=== PATIENT | male | born 2000 ===

== ENCOUNTER 2025-07-08 14:07 | Inpatient (IN) | payer OTHER, SELFPAY ==
--- OUTSIDE RECORDS SUMMARY | 2024-03-31 05:00 | XMS_ITS ---
Author Organization [facility] [place] Address [address] [place] [address] Care Team Providers Care Coil Tier Name Role Phone Sonizara Claribel Unavailable [phone] Migration, Provider Unavailable Unavailable REASON FOR VISIT TelEnc Encounters Encounter Location Date Provider [facility] [place] [address] [facility] [address] [place] [address] 03/31/2024 Provider Migration Plan Of Treatment No Information Progress Notes * ISRAEL YANEZDOB:1999 (25 yo M)Acc No.[id number]:03/31/2024 Patient: ISRAEL BRITTON :2000 A ge:23 Y S ex:Male Address:[address] [place] [address], [id number] Subjective: * Chief Complaints: * T elEnc * Medical History: * Surgical History: * Hospitalization/Major Diagno stic Procedure: * Medications: Objective: * Vitals: Past Vitals:* 03/24/2024 BP: 132/90 mm Hg, HR: 97 /mi n, Wt: 240.00 lbs * Physical Examination: Assessment: Plan: * Treatment: * Procedure Codes: * * Date:
--- OUTSIDE RECORDS SUMMARY | 2024-04-20 05:00 | XMS_ITS ---
Author Organization [place] [facility] [place] Address [address] [place] [address] Care Team Providers Care Coverage Specialist Rn Name Role Phone Sonizara Claribel Unavailable [phone] Migration, Provider Unavailable Unavailable REASON FOR VISIT TelEnc Encounters Encounter Location Date Provider [facility] [place] [address] [facility] [address] [place] [address] 04/20/2024 Provider Migration Plan Of Treatment No Information Progress Notes * ISRAEL YANEZDOB:1999 (25 yo M)Acc No.[id number]:04/20/2024 Patient: ISRAEL BRITTON :2000 A ge:24 Y S ex:Male Address:[address] [place] [address], [phone] Subjective: * Chief Complaints: * T elEnc * Medical History: * Surgical History: * Hospitalization/Major Diagno stic Procedure: * Medications: Objective: * Vitals: Past Vitals:* 03/24/2024 BP: 132/90 mm Hg, HR: 97 /mi n, Wt: 240.00 lbs * Physical Examination: Assessment: Plan: * Treatment: * Procedure Codes: * * Date:
--- OUTSIDE RECORDS SUMMARY | 2024-05-06 07:15 | XMS_ITS ---
Author Organization [facility] [place] Address [address] [facility] [address] [place] [address] Care Team Providers Care Chief Psychology Name Role Phone Eleazar Claribel Unavailable [phone] Hugo Avila Unavailable [phone] Vital Signs Weight 249.00 lbs 05/06/2024 Oximetry 98 % 05/06/2024 Heart Rate 100 /min 05/06/2024 Height 73.00 in 05/06/2024 Blood pressure systolic 136 mm Hg 05/06/20 Blood pressure diastolic 90 mm Hg 024 BMI 32.9 kg/m2 05/06/2024 Encounters Encounter Location Date Provider [facility] [place] [address] [facility] [address] [place] [address] 05/06/2024 Hugo Avila Unspecified abnormal involuntary movements R25.9 Assessments Encounter Date Diagnosis (ICD Code) Assessment Notes Treatment Notes Treatment Clinical Notes Section Notes 05/06/2024 Unspecified abnormal involuntary movements (ICD-10 - R25.9) Plan Of Treatment No Information Progress Notes * ISRAEL YANEZDOB:1999 (25 yo M)Acc No.[id number]:05/06/2024 Patient: ISRAEL BRITTON Provider: Shabana Avila MD :2000 A ge:24 Y S ex:Male Date:05/06/2024 [id number] Subjective: * Chief Complaints: * * Medical History: Objective: * Vitals: B P: 136/90 mm Hg, HR: 100 /min, Wt: 249.00 lbs, Ht: 73.00 in, BMI: 32.9 Index, Oxygen sat %: 98. Past Vitals:* 03/24/2024 BP: 132/90 mm Hg, HR: 97 /mi n, Wt: 240.00 lbs Assessment: * Assessment: 1. U nspecified abnormal involuntary movements - R25.9 Plan: * Treatment: * Billing Information: * Visit Code: * Procedure Codes: * Electronic signature of Stacie Avila M.D, on 07/08/2025 at 06:37 PM EDT Sign off status: Pending * Provider: Shabana Avila MD Date: 0 05/06/2024 Generated for Jarett levin/Patrick/Cuate on: 07/08/2025 06:37 PM EDT
--- OUTSIDE RECORDS SUMMARY | 2025-02-06 05:00 | XMS_ITS ---
[facility] [place] Address [address] [place] [address] Care Team Providers Care Artificial Breeding Distributor Name Role Phone Sonizara Claribel Unavailable [phone] Migration, Provider Unavailable Unavailable REASON FOR VISIT [facility] Encounters Encounter Location Date Provider Diagnosis [facility] [place] [address] [place] [address] 02/06/2025 Provider Migration Plan Of Treatment No Information Progress Notes * ISRAEL YANEZDOB:1999 (25 yo M)Acc No.[id number]:02/06/2025 Patient: ISRAEL BRITTON :2000 A ge:24 Y S ex:Male Address:[address] [place] [address], [phone] Subjective: * Chief Complaints: * E MR-Wilfred * Medical History: * Surgical History: * Hospitalization/Major Diagno stic Procedure: * Medications: Objective: * Vitals: Past Vitals:* 05/06/2024 BP: 136/90 mm Hg, HR: 100 /m in, Wt: 249.00 lbs * 03/24/2024 BP: 132/90 mm Hg, HR: 97 /mi n, Wt: 240.00 lbs * Physical Examination: Assessment: Plan: * Treatment: * Procedure Codes: * * Date:
--- OUTSIDE RECORDS SUMMARY | 2025-02-07 05:00 | XMS_ITS ---
Author Organization [facility] [place] Address [address] [facility] [address] [place] [address] Care Team Providers Care Sprinkling System Installer Name Role Phone Sonizara Claribel Unavailable [phone] Migration, Provider Unavailable Unavailable REASON FOR VISIT [facility] Medications Medication SIG (Take, Route, Frequency, Duration) Notes Start Date End Date Status clomiPRAMINE HCl 50 MG Oral 05/06/2024 Active Anafranil *Pick strength-form from [email or web address] for eRX* 05/06/2024 Active Divalproex Sodium ER 250 MG Oral 05/06/2024 Active busPIRone HCl 5 MG Oral 05/06/2024 Active Venlafaxine HCl ER 75 MG Oral 05/06/2024 Active LORazepam 0.5 MG Oral 05/06/2024 Ac tive clomiPRAMINE HCl 25 MG Oral 05/06/2024 Active ARIPiprazole 10 MG Oral 05/06/2024 Active Venlafaxine HCl ER 37.5 MG Oral 05/06/2024 Active Venlafaxine HCl ER 150 MG Oral 05/06/2024 Active clomiPRAMINE HCl 75 MG Oral 05/06/2024 Active Divalproex Sodium 250 MG Oral 05/06/2024 Active LORazepam 1 MG Oral 05/06/2024 Acti ve Rexulti 0.5 MG Oral 05/06/2024 Acti ve Divalproex Sodium 500 MG Oral 05/06/2024 Active Divalproex Sodium ER 500 MG Oral 05/06/2024 Active Encounters Encounter Location Date Provider Diagnosis [facility] [place] [address] [facility] [address] [place] [address] 02/07/2025 Provider Migration Plan Of Treatment No Information Progress Notes * ISRAEL YANEZDOB:1999 (25 yo M)Acc No.[id number]:02/07/2025 Patient: ISRAEL BRITTON :2000 A ge:24 Y S ex:Male Address:[address] [place] [address], [phone] Subjective: * Chief Complaints: * E MR-Wilfred * Medical History: * Surgical History: * Hospitalization/Major Diagno stic Procedure: * Social History: M igrated Social History: M igrated Social History: Alcohol Intake: None 03/24/2024,Tobacco Years: Never smoker 03/24/2024. * Medications: T akingARIPiprazole 10 MG Tablet Oral LORazepam 1 MG Tablet Oral LORazepam 0.5 MG Tablet Oral Rexulti 0.5 MG Tablet Oral Divalproex Sodium ER 250 MG Tablet Extended Release 24 Hour Oral Divalproex Sodium ER 500 MG Tablet Extended Release 24 Hour Oral clomiPRAMINE HCl 25 MG Capsule Oral clomiPRAMINE HCl 50 MG Capsule Oral clomiPRAMINE HCl 75 MG Capsule Oral Divalproex Sodium 250 MG Tablet Delayed Release Oral Divalproex Sodium 500 MG Tablet Delayed Release Oral Anafranil , Notes to Pharmacist: *Pick strength-form from [employer] for eRX*Venlafaxine HCl ER 150 MG Capsule Extended Release 24 Hour Oral Venlafaxine HCl ER 37.5 MG Capsule Extended Release 24 Hour Oral Venlafaxine HCl ER 75 MG Capsule Extended Release 24 Hour Oral busPIRone HCl 5 MG Tablet Oral Taking ARIPiprazole 10 MG Tablet Oral Taking LORazepam 1 MG Tablet Oral Taking LORazepam 0.5 MG Tablet Oral Taking Rexulti 0.5 MG Tablet Oral Taking Divalproex Sodium ER 250 MG Tablet Extended Release 24 Hour Oral Taking Divalproex Sodium ER 500 MG Tablet Extended Release 24 Hour Oral Taking clomiPRAMINE HCl 25 MG Capsule Oral Taking clomiPRAMINE HCl 50 MG Capsule Oral Taking clomiPRAMINE HCl 75 MG Capsule Oral Taking Divalproex Sodium 250 MG Tablet Delayed Release Oral Taking Divalproex Sodium 500 MG Tablet Delayed Release Oral Taking Anafranil , Notes to Pharmacist: *Pick strength-form from [employer] for eRX*Taking Venlafaxine HCl ER 150 MG Capsule Extended Release 24 Hour Oral Taking Venlafaxine HCl ER 37.5 MG Capsule Extended Release 24 Hour Oral Taking Venlafaxine HCl ER 75 MG Capsule Extended Release 24 Hour Oral Taking busPIRone HCl 5 MG Tablet Oral Objective: * Vitals: Past Vitals:* 05/06/2024 BP: 136/90 mm Hg, HR: 100 /m in, Wt: 249.00 lbs * 03/24/2024 BP: 132/90 mm Hg, HR: 97 /mi n, Wt: 240.00 lbs * Physical Examination: Assessment: Plan: * Treatment: * Procedure Codes: * * Date:
--- OUTSIDE RECORDS SUMMARY | 2025-06-29 03:31 | XMS_ITS | Continuity of Care Document ---
Author Organization [facility] Address 6 [facility] [address] [place] [address] Phone Care Team Providers Care Clinical Appeals Rn Name Role Phone Marlyn Mata APN Unavailable Unavailable Allergies, Adverse Reactions, Alerts Substance Reaction Status Criticality No Known Allergies Active No Inform ation Medications Medication Instructions Dosage Effective Dates (start - stop) Status Comments CLOMIPRAMINE 50 MG CAPSULE TAKE 2 CAPSULES BY MOUTH EVERY DAY IN THE MORNING - Active LURASIDONE HCL 60 MG TABLET TAKE 1 TABLET BY MOUTH EVERY DAY WITH FOOD (AT LEAST 350 CALORIES) - Active DIVALPROEX SOD ER 500 MG TAB TAKE 1 TABLET BY ORAL ROUTE EVERY DAY AT BEDTIME (DEPAKOTE SOD ER) - Active CYCLOBENZAPRINE 10 MG TABLET TAKE 1 TABLET BY MOUTH TWICE A DAY NEEDED FOR PAIN - Active dexmethylphenidate ER 10 mg capsule,extended release [id number] take 1 capsule by oral route every day in the morning 10 MG - Active nitrofurantoin monohydrate/macrocrysta ls 100 mg capsule take 1 capsule by oral route every day for UTI prophylaxis - Active alfuzosin ER 10 mg tablet,extended release 24 hr take 1 tablet by oral route every day at night - Active hydroxyzine HCl 50 mg tablet take 1 tablet by oral route 3 times every day as needed 50 MG - Active Depakote ER 250 mg tablet,extended release take 1 tablet by oral route every day at bedtime. - Active In addition to the 500mg for 750mg total Anafranil 75 mg capsule TAKE 1 CAPSULE B Y MOUTH EVERYDAY AT BEDTIME - Active paroxetine 30 mg tablet take 1 tablet by oral route every day 30 MG - Active gabapentin 300 mg capsule take 1 capsule by oral route 3 times every day as needed 300 MG - Active Other: MISCELL Methylcobalamin 1000 mcg, L-methylfolate 25 mg, Vitamin D, Vitamin C - Active Latuda 60 mg tablet take 1 tablet by oral route every day with food (at least 350 calories) 60 MG - No Longer Active Anafranil 50 mg capsule TAKE 2 CAPSULE B Y MOUTH EVERY DAY IN THE MORNING - No Longer Active Procedures Procedure Date OFFICE/OUTPATIENT VISIT, EST-Detailed Au Complex e/m visit add on Admin Of Pt Focused Health Risk Assessme nt Instr OFFICE/OUTPATIENT VISIT, EST-Detailed Au Complex e/m visit add on US Urine Capacity Measure Urinalysis, Auto, W/O Scope OFFICE/OUTPATIENT VISIT, EST-Expanded Au ACP DISCUSS-NO DSCNMKR DOCD Admin Of Pt Focused Health Risk Assessme nt Instr OFFICE/OUTPATIENT VISIT, EST-Detailed Ju Complex e/m visit add on Office/Outpatient Visit, Est OFFICE/OUTPATIENT VISIT, EST-Detailed Ju Complex e/m visit add on 5+ CC sterile syringe&needle Methylprednisolone Acetate 1mg 25 LIDOCAINE Marcaine Drain/Inject, Joint/Bursa Office/Outpatient Visit, New OFFICE/OUTPATIENT VISIT, EST-Detailed Ju Complex e/m visit add on Duplicate Encounter X-Ray shoulder, complete Arm Sling Urgent care [facility] Cystoscopy NO Office Visit Code / NO EM Code US Urine Capacity Measure Nurse Visit No Charge Admin Of Pt Focused Health Risk Assessme nt Instr OFFICE/OUTPATIENT VISIT, EST-Detailed Ma Complex e/m visit add on US Urine Capacity Measure Urinalysis, Auto, W/O Scope OFFICE/OUTPATIENT VISIT, EST-Expanded De ACP DISCUSS-NO DSCNMKR DOCD Urinalysis, Auto, W/O Scope OFFICE/OUTPATIENT VISIT, EST-Detailed Cole ACP DISCUSS-NO DSCNMKR DOCD Admin Of Pt Focused Health Risk Assessme nt Instr VENIPUNCTURE PREV VISIT, EST, AGE 18-39 OFFICE/OUTPATIENT VISIT, EST-Expanded De REMOVE IMPACTED EAR WAX UNI OFFICE/OUTPATIENT VISIT, [facility] Urgent care center [facility] OFFICE/OUTPATIENT VISIT, EST-Detailed Se p OFFICE/OUTPATIENT VISIT, EST-Detailed Se US Urine Capacity Measure Urinalysis, Auto, W/O Scope OFFICE/OUTPATIENT VISIT, EST-Expanded Au IMMUNIZATION ADMIN TDAP VACCINE >7 IM Admin Of Pt Focused Health Risk Assessme nt Instr OFFICE/OUTPATIENT VISIT, EST-Detailed Au Admin Of Pt Focused Health Risk Assessme nt Instr OFFICE/OUTPATIENT VISIT, EST-Detailed Ju OFFICE/OUTPATIENT VISIT, EST-Detailed Ju Admin Of Pt Focused Health Risk Assessme nt Instr OFFICE/OUTPATIENT VISIT, EST-Detailed Ju OFFICE/OUTPATIENT VISIT, EST-Complex February Complex e/m visit add on Discharge Medlist Reconciled w/OutPt Med list Admin Of Pt Focused Health Risk Assessme nt Instr OFFICE/OUTPATIENT VISIT, EST-Detailed Ma Discharge Medlist Reconciled w/OutPt Med list Admin Of Pt Focused Health Risk Assessme nt Instr OFFICE/OUTPATIENT VISIT, EST-Detailed Ma OFFICE/OUTPATIENT VISIT, EST-Complex February OFFICE/OUTPATIENT VISIT, EST-Expanded Ap OFFICE/OUTPATIENT VISIT, NEW Discharge Medlist Reconciled w/OutPt Med list Admin Of Pt Focused Health Risk Assessme nt Instr OFFICE/OUTPATIENT VISIT, EST-Detailed Ma r OFFICE/OUTPATIENT VISIT, EST-Detailed Ma Discharge Medlist Reconciled w/OutPt Med list Complex e/m visit add on OFFICE/OUTPATIENT VISIT, NEW Discharge Medlist Reconciled w/OutPt Med list VENIPUNCTURE Admin Of Pt Focused Health Risk Assessme nt Instr PREV VISIT, EST, AGE 18-39 OFFICE/OUTPATIENT VISIT, EST-Expanded Fe IMMUNIZATION ADMIN HPV Vacc 3 Dose Im - Gardisil VENIPUNCTURE PREV VISIT, EST, AGE 18-39 NO Office Visit Code / NO EM Code Destruct B9 Lesion Or Warts, 1-14 PREV VISIT, EST, AGE 18-39 NO Office Visit Code / NO EM Code Destruct B9 Lesion Or Warts, 1-14 OFFICE/OUTPATIENT VISIT, EST-Expanded Ju NO Office Visit Code / NO EM Code Destruct Lesion Or Warts, 15 Or More Mar NO Office Visit Code / NO EM Code Destruct Lesion Or Warts, 15 Or More February OFFICE/OUTPATIENT VISIT, NEW Destruct B9 Lesion Or Warts, 1- IMMUNIZATION ADMIN Bexsero IMMUNIZATION ADMIN, EACH ADD Flu Vacc Flulaval 0.5mL Prefilled Preser v Free Syringe 6 Months + Nurse Visit No Charge OFFICE/OUTPATIENT VISIT, NEW Urgent care center [facility] OFFICE/OUTPATIENT VISIT, EST-Expanded Se Urinalysis, Auto, W/O Scope X-Ray Abdomen, One View US Abdomen Retroperitoneal, Complete Jun Urinalysis, Auto, W/O Scope OFFICE/OUTPATIENT VISIT, EST-Detailed Se Body Mass Index Documented IMMUNIZATION ADMIN Bexsero PREV VISIT, EST, AGE 18-39 REFRACTION Eye Exam & Treatment Body Mass Index Documented PREV VISIT, EST, AGE 12-17 Admin Of Pt Focused Health Risk Assessme nt Instr Urinalysis, Auto, W/O Scope OFFICE/OUTPATIENT VISIT, EST-Expanded No OFFICE/OUTPATIENT VISIT, EST-Expanded Se p Urinalysis, Auto, W/O Scope OFFICE/OUTPATIENT VISIT, EST-Expanded Au g Urinalysis, Auto, W/O Scope ECHO W/DOPLER AND COLOR FLOW Cardiovascular Stress Test Electrocardiogram, Complete Office/Outpatient Visit, New Pt Comprehe nsive OFFICE CONSULTATION ELECTROCARDIOGRAM, COMPLETE OFFICE CONSULTATION Urinalysis, Auto, W/O Scope US Urine Capacity Measure VISUAL ACUITY SCREEN Body Mass Index Documented IMMUNIZATION ADMIN MENINGOCOCCAL VACCINE, IM PREV VISIT, EST, AGE 12-17 OFFICE/OUTPATIENT VISIT, EST-Expanded Ma URINALYSIS NONAUTO W/O SCOPE OFFICE/OUTPATIENT VISIT, EST-Expanded Ap SPECIMEN HANDLING OFFICE/OUTPATIENT VISIT, EST-Detailed Ma Body Mass Index Documented PREV VISIT, EST, AGE 12-17 X-Ray Finger/S, 2 Views Finger splint, static Office/Outpatient Visit, Est OFFICE/OUTPATIENT VISIT, EST-Expanded Ma Audiometry, Screening Pure Tone Hearing Test PREV VISIT, EST, AGE 12-17 OFFICE/OUTPATIENT VISIT, NEW Urgent care center [facility] REFRACTION STREP A ASSAY W/OPTIC OFFICE/OUTPATIENT VISIT, EST-Expanded Ju VISUAL ACUITY SCREEN IMMUNE ADMIN ORAL/NASAL Flu Vaccine, Nasal Quadrivalent 015 PREV VISIT, EST, AGE 12-17 OFFICE/OUTPATIENT VISIT, EST-Expanded Au OFFICE/OUTPATIENT VISIT, EST-Expanded Au Eye Exam & Treatment REFRACTION IMMUNE ADMIN ORAL/NASAL Flu Vaccine, Nasal Quadrivalent 014 Nurse Visit No Charge PURE TONE HEARING TEST - Audiometry PREV VISIT, EST, AGE 12-17 Rx Check Eye Exam Established Pat REFRACTION OFFICE/OUTPATIENT VISIT, NEW Balance Forward VISUAL ACUITY SCREEN MENINGOCOCCAL VACCINE, IM IMMUNIZATION ADMIN FLU VACCINE, NASAL Immune Admin Oral/Nasal Addl TDAP VACCINE >7 IM IMMUNIZATION ADMIN, EACH ADD PREV VISIT, EST, AGE 5-11 HEP A VACC, PED/ADOL, 2 DOSE Eye Exam, New Patient REFRACTION FLU VACCINE, NASAL IMMUNE ADMIN ORAL/NASAL Nurse Visit No Charge VISUAL ACUITY SCREEN PURE TONE HEARING TEST - Audiometry HEP A VACC, PED/ADOL, 2 DOSE IMMUNIZATION ADMIN PREV VISIT, EST, AGE 5-11 OFFICE/OUTPATIENT VISIT, EST PREV VISIT, EST, AGE 5-11 IMMUNE ADMIN ORAL/NASAL FLU VACCINE, NASAL OFFICE/OUTPATIENT VISIT, EST STREP A AG, EIA OFFICE/OUTPATIENT VISIT, EST STREP A AG, EIA OFFICE/OUTPATIENT VISIT, EST URINALYSIS NONAUTO W/O SCOPE OFFICE/OUTPATIENT VISIT, EST URINALYSIS NONAUTO W/O SCOPE PREV VISIT, EST, AGE 5-11 OFFICE/OUTPATIENT VISIT, EST OFFICE/OUTPATIENT VISIT, EST OFFICE/OUTPATIENT VISIT, EST OFFICE/OUTPATIENT VISIT, EST OFFICE/OUTPATIENT VISIT, EST PREV VISIT, EST, AGE 5-11 VISUAL ACUITY SCREEN NO CHARGE REMOVE TONSILS AND ADENOIDS OFFICE/OUTPATIENT VISIT, EST OFFICE/OUTPATIENT VISIT, EST OFFICE/OUTPATIENT VISIT, EST OFFICE CONSULTATION OFFICE/OUTPATIENT VISIT, EST PREV VISIT, EST, AGE 5-11 CAPILLARY BLOOD DRAW OFFICE/OUTPATIENT VISIT, EST OFFICE/OUTPATIENT VISIT, EST OFFICE/OUTPATIENT VISIT, EST PREV VISIT, EST, AGE 5-11 CHICKEN POX VACCINE, SC IMMUNIZATION ADMIN PURE TONE HEARING TEST, AIR VISUAL ACUITY SCREEN Advance Directives Directive Yes / No Effective Date File Name No Information Encounters Encounter Description Practice Location Reason(s) For Visit Diagnoses Date Provider Providers Copied on Encounter [facility], [address] [place] [address], [id number], tel:[phone] [facility] No Information 5 Adolfo Cline. [address] [place] [address], [id number], . tel:[phone] Referring Provider: Marlyn Mata, [address], [address]. tel:[phone] [facility], [address] [place] [address], [id number], tel:[phone] [facility] No Information 5 Adolfo Cline. [address] [place] [address], [id number], . tel:[phone] Referring Provider: Marlyn Mata, [address], [address]. tel:[phone] [facility], [address] [place] [address], [id number], tel:[phone] [facility] No Information 5 Dakota Cardenas. 6 [facility], [address], [facility], . tel:[phone] Referring Provider: Marlyn Mata, [address], [address]. tel:[phone] OFFICE/OUTPATI ENT VISIT, EST-Detailed [facility], [address] [place] [address], [id number], [place] tel:[phone] [facility] Chronic Conditions (chief complaint) Attention deficit hyperactivit y disorder (ADHD), predominantl y inattentive type 5 Adolfo Andresher. [address] [place] [address], [id number], [place]. tel:[phone] Referring Provider: Marlyn Mata, [address] [place] [address], [id number]. tel:[phone] OFFICE/OUTPATI ENT VISIT, EST-Detailed [facility], [address] [place] [address], [id number], [place] tel:[phone] [facility] Chronic Conditions (chief complaint)N urse Comments (chief complaint) Encounter for screening for other disorderAtte ntion deficit hyperactivit y disorder (ADHD), predominantl y inattentive typeGAD (generalized anxiety disorder)Rl or depressive disorder, recurrent, moderateObse ssive-compul sive disorder, unspecified typeBody mass index [BMI] 33.0-33.9, adult 5 Adolfo Marlyn. [address] [place] [address], [id number], [place]. tel:[phone] Referring Provider: Marlyn Mata, [address] [place] [address], [id number]. tel:[phone] OFFICE/OUTPATI ENT VISIT, EST-Expanded [facility], [address] [facility], [address], [place], [address], [place] tel:[phone] [facility] LUTS (chief complaint) Lower urinary tract symptoms (LUTS)Histor y of UTI 5 Andrew Yeboah. 1 [facility], [address] - [facility], [place], [address], [place]. tel:[phone] Referring Provider: Obinna Yañez, 1 [facility] [address] - [facility], [place], [address]. tel:[phone] OFFICE/OUTPATI ENT VISIT, EST-Detailed [facility], [address] [place] [address], [id number], [place] tel:[phone] [facility] Chronic Conditions (chief complaint)b ack pain (chief complaint) Anxiety disorder, unspecifiedG AD (generalized anxiety disorder)Rl or depressive disorder, recurrent, moderateObse ssive-compul sive disorder, unspecified typeEncounte r for screening for other disorderAtte ntion deficit hyperactivit y disorder (ADHD), predominantl y inattentive typeBody mass index [BMI] 32.0-32.9, adultChronic midline low back pain without sciaticaOthe r chronic painStrain of neck muscle, initial encounter 5 Adolfo Cline. [address], [id number], [place]. tel:[phone] Referring Provider: Marlyn Mata, [address], [address]. tel:[phone] Office/Outpati ent Visit, Est [facility], [address] [address], [place], [place], [id number], [place] tel:[phone] [facility] Impingement syndrome of right shoulder 5 Sierra Cabrera. [address] [facility], [facility] , [place], [address], [place]. tel:[phone] Referring Provider: Rick Martinez, [address] [facility] , [place], [address]. tel:[phone] OFFICE/OUTPATI ENT VISIT, EST-Detailed [facility], [address], [id number], [place] tel:[phone] [facility] Nurse Comments (chief complaint) Pain, joint, shoulder, rightBody mass index [BMI] 32.0-32.9, adult Mar- 5 Dakota Cardenas. 6 [facility], [address], [address], [place]. tel:[phone] Referring Provider: Ronald Duncan, 6 [facility], [address] [address], [place], [address]. tel:[phone] Office/Outpati ent Visit, [facility], [address] [place] [address], [place], [place], [id number], [place] tel:[phone] [facility] My right shoulder hurts. (chief complaint) Impingement syndrome of right shoulder 5 Sierra Cabrera. [address] [facility], [facility] , [place], [address], [place]. tel:[phone] Referring Provider: Rick Martinez, [address] [facility], [place], [place], [facility]. tel:[phone] OFFICE/OUTPATI ENT VISIT, EST-Detailed [facility], [address] [place] [address], [id number], [place] tel:[phone] [facility] Chronic Conditions (chief complaint)A nxiety / Depression (chief complaint) Body mass index [BMI] 33.0-33.9, adultAttenti on deficit hyperactivit y disorder (ADHD), combined typeGAD (generalized anxiety disorder)Rl or depressive disorder, recurrent, moderateObse ssive-compul sive disorder, unspecified typeAutistic disorder 5 Adolfo Cline. [address], [id number], [place]. tel:[phone] Referring Provider: Marlyn Mata, [address], [address]. tel:[phone] [facility], [address] [place] [address], [id number], [place] tel:[phone] [facility] No Information Mar- 5 Adolfo Andresher. [address], [id number], [place]. tel:[phone] Referring Provider: Marlyn Mata, [address], [address]. tel:[phone] [facility], [address] [place] [address], [id number], [place] tel:[phone] [facility] shoulder pain (chief complaint) Acute pain of right shoulder Braydon- 5 Sonu Dawkins. [address] [place] [address], [id number], [place]. tel:[phone] Referring Provider: Leon Francisco, [address] [place] [address], [place], [address]. tel:[phone] [facility], [address] [place] [address], Suite [facility], [place], [address], [place] tel:[phone] [facility] cystoscopy (chief complaint) Urinary tract infection, site not specified 5 Andrew Yeboah. 1 [facility], [address] [place], [address], [place]. tel:[phone] Referring Provider: Obinna Yañez, 1 [facility] [address] [facility] [place] [place], [facility]. tel:[phone] [facility], [address] [facility], [address], [place], [address], [place] tel:[phone] [facility] Lower urinary tract symptoms (LUTS) 5 [facility]. [address] [place], [place], [id number], [place]. tel:[phone] Referring Provider: Obinna Yañez, 1 [facility] [address] - [facility] [place], [place], [facility]. tel:[phone] OFFICE/OUTPATI ENT VISIT, EST-Detailed [facility], [address] [place] [address], [id number], [place] tel:[phone] [facility] Anxiety / Depression (chief complaint)C hronic Conditions (chief complaint) Encounter for screening for other disorderBody mass index [BMI] 33.0-33.9, adultMajor depressive disorder, recurrent, moderateObse ssive-compul sive disorder, unspecified typeMTHFR gene mutationGAD (generalized anxiety disorder)Aut istic disorder 5 Adolfo Cline. [address], [id number], [place]. tel:[phone] Referring Provider: Marlyn Mata, [address] [place] [address], [id number]. tel:[phone] OFFICE/OUTPATI ENT VISIT, [facility], [address] [place] [address], [address], [facility], tel:[phone] [facility] LUTS (chief complaint) Lower urinary tract symptoms (LUTS) 5 Andrew Yeboah. [address] [place] [address], Suite [facility] [place], [address], [place]. tel:[phone] Referring Provider: Obinna Yañez, 1 [facility] Suite [facility] [place], [place], [facility]. tel:[phone] OFFICE/OUTPATI ENT VISIT, EST-Detailed [facility], 1 [facility], Suite [facility], [place], [address], tel:[phone] [facility] LUTS (chief complaint) Abnormal urine odorLower urinary tract symptoms (LUTS)Micros copic hematuria 5 Andrew Yeboah. [address] [place] [address], Suite [facility] [place], [address], . tel:[phone] PREV VISIT, EST, AGE 18-39 [facility], [address] [place] [address], [id number], [place] tel:[phone] [facility] preventive exam (chief complaint)C hronic Conditions (chief complaint)p rovider note (chief complaint) General medical examinationE ncounter for screening for other disorderBody mass index [BMI] 32.0-32.9, adultMajor depressive disorder, recurrent, moderateGAD (generalized anxiety disorder)Obs essive-compu lsive disorder, unspecified typeRUQ painMalodoro us urine 4 Song Daniel. [address] [place] [address], [id number], [place]. tel:[phone] Referring Provider: Fredy Zuleta, [address] [place] [address], [id number]. tel:[phone] OFFICE/OUTPATI ENT VISIT, [facility], [address] [place] [address], [id number], tel:[phone] [facility] clogged ears (chief complaint) Impacted cerumen, bilateral 4 Kiley Hopkins. [address] [place] [address], [address], [place]. tel:[phone] Referring Provider: Kellie Cao, [address] [place] [address], [facility]. tel:[phone] OFFICE/OUTPATI ENT VISIT, EST-Detailed [facility], [address] [place] [address], [id number], [place] tel:[phone] [facility] Chronic Conditions (chief complaint)A nxiety / Depression (chief complaint) Autistic disorderGAD (generalized anxiety disorder)Obs essive-compu lsive disorder, unspecified typeMajor depressive disorder, recurrent, moderate Sep-0 4 Adolfo Cline. [address] [place] [address], [id number], [place]. tel:[phone] Referring Provider: Marlyn Mata, [address], [address]. tel:[phone] OFFICE/OUTPATI ENT VISIT, EST-Detailed [facility], [address] [place] [address], [id number], [place] tel:[phone] [facility] Chronic Conditions (chief complaint) Autistic disorderObse ssive-compul sive disorder, unspecified typeMajor depressive disorder, recurrent, moderateBody mass index [BMI] 33.0-33.9, adult Sep-0 4 Adolfo Cline. [address] [place] [address], [id number], [place]. tel:[phone] Referring Provider: Marlyn Mata, [address] [place] [address], [id number]. tel:[phone] OFFICE/OUTPATI ENT VISIT, EST-Expanded [facility], [address] [facility], [address], [place], [address], tel:[phone] [facility] LUTS (chief complaint) Microscopic hematuriaLow er urinary tract symptoms (LUTS) 4 Andrew Yeboah. 1 [facility], [address] - [facility], [place], [address], [place]. tel:[phone] Referring Provider: Obinna Yañez, 1 [facility] [address] - [facility], [place], [place], [facility]. tel:[phone] OFFICE/OUTPATI ENT VISIT, EST-Detailed [facility], [address] [place] [address], [id number], [place] tel:[phone] [facility] Chronic Conditions (chief complaint)A nxiety / Depression (chief complaint) TOSHA (generalized anxiety disorder)Rl or depressive disorder, recurrent, moderateObse ssive-compul sive disorder, unspecified typeAutistic disorderMyoc lonusBody mass index [BMI] 33.0-33.9, adultEncount er for screening for other disorder 4 Adolfo Andresher. [address] [place] [address], [id number], [place]. tel:[phone] Referring Provider: Marlyn Mata, [address] [address], [place], [address]. tel:[phone] OFFICE/OUTPATI ENT VISIT, EST-Detailed [facility] at [address], [id number], [place] tel:[phone] [facility] Chronic Conditions (chief complaint)A nxiety / Depression (chief complaint) Encounter for screening for other disorderAnxi ety disorder, unspecifiedO bsessive-com pulsive disorder, unspecified typeGAD (generalized anxiety disorder)MDD (major depressive disorder), recurrent episode, moderateAuti stic disorderMyoc lonusBody mass index [BMI] 32.0-32.9, adult 4 Adolfo Marlyn. [address] [place] [address], [id number], [place]. tel:[phone] [id number] Referring Provider: Marlyn Mata, [address] [place] [address], [id number]. tel:[phone] OFFICE/OUTPATI ENT VISIT, EST-Detailed [facility] at [address], [id number], [place] tel:[phone] [facility] Lucien delarosa Chronic Conditions (chief complaint)A nxiety / Depression (chief complaint) TOSHA (generalized anxiety disorder)MDD (major depressive disorder), recurrent episode, moderateObse ssive-compul sive disorder, unspecified typeAutistic disorder 4 Adolfo Cline. [address] [place] [address], [id number], [place]. tel:[phone] Referring Provider: Marlyn Mata, [address] [place] [address], [id number]. tel:[phone] OFFICE/OUTPATI ENT VISIT, EST-Detailed [facility] at [facility], [address] [place] [address], [id number], [place] tel:[phone] [facility] Nurse Comments (chief complaint)C hronic Conditions (chief complaint)A nxiety / Depression (chief complaint) Encounter for screening for other disorderAnxi ety disorder, unspecifiedG AD (generalized anxiety disorder)MDD (major depressive disorder), recurrent episode, moderateObse ssive-compul sive disorder, unspecified typeAutistic disorderBody mass index [BMI] 32.0-32.9, adult Mar- 4 Mata Marlyn. [address] [place] [address], [id number], [place]. tel:[phone] Referring Provider: Marlyn Mata, [address] [place] [address], [address]. tel:[phone] OFFICE/OUTPATI ENT VISIT, EST-Complex [facility] at [address], [id number], [place] tel:[phone] [facility] at [facility] provider note (chief complaint) Anxiety disorder, unspecifiedM DD (major depressive disorder), recurrent episode, moderateBody mass index [BMI] 32.0-32.9, adult 4 Song Daniel. [address] [place] [address], [id number], [place]. tel:[phone] Referring Provider: Fredy Zuleta, [address] [place], [address]. tel:[phone] OFFICE/OUTPATI ENT VISIT, EST-Detailed [facility] at [address], [id number], [place] tel:[phone] [facility] Lucien delarosa Chronic Conditions (chief complaint)A nxiety / Depression (chief complaint) Encounter for screening for other disorderAnxi ety disorder, unspecifiedG AD (generalized anxiety disorder)MDD (major depressive disorder), recurrent episode, moderateObse ssive-compul sive disorder, unspecified type 4 Adolfo Marlyn. [address] [place] [address], [id number], [place]. tel:[phone] Referring Provider: Marlyn Mata, [address] [place] [address], [id number]. tel:[phone] OFFICE/OUTPATI ENT VISIT, EST-Detailed [facility], [address] [place] [address], [id number], [place] tel:[phone] [facility] Chronic Conditions (chief complaint)A nxiety / Depression (chief complaint) Encounter for screening for other disorderBody mass index [BMI] 31.0-31.9, adultAdverse effect of unspecified antipsychoti cs and neuroleptics , initial encounterAnx iety disorder, unspecifiedP ervasive developmenta l disorder, unspecifiedM DD (major depressive disorder), recurrent episode, moderateObse ssive-compul sive disorder, unspecified typeGAD (generalized anxiety disorder)Aut istic disorder 4 Adolfo Cline. [address] [place] [address], [id number], [place]. tel:[phone] Referring Provider: Marlyn Mata, [address] [place] [address], [id number]. tel:[phone] OFFICE/OUTPATI ENT VISIT, EST-Complex [facility] at [address], [id number], [place] tel:[phone] [facility] Lucien delarosa md note (chief complaint) Body mass index [BMI] 31.0-31.9, adultNeurole ptic-induced tardive dyskinesiaAd verse effect of unspecified antipsychoti cs and neuroleptics , initial encounter 4 Abiel dc [address] [place] [address], [id number], [place]. tel:[phone] Referring Provider: Akin Beebe, [address] [place] [address], [address]. tel:[phone] OFFICE/OUTPATI ENT VISIT, EST-Expanded [facility] at [address], [id number], [place] tel:[phone] [facility] Body mass index [BMI] 31.0-31.9, adultChronic midline low back pain without sciaticaOthe r chronic pain Apr- 4 Dennis Alvarado. [address], [address], [place], [place], [id number], [place]. tel:[phone] Referring Provider: Christiano Collins, [address], [place], [address]. tel:[phone] [facility], [address] [facility], [address], [place], [address], [place] tel:[phone] [facility] Abnormal urine odor Jan- 4 Andrew Yeboah. [address] [facility], [address] - [place], [address], [place]. tel:[phone] OFFICE/OUTPATI ENT VISIT, [facility], [address] [facility], [address], [place], [address], [place] tel:[phone] [facility] Fle LUTS (chief complaint) Abnormal urine odorHistory of UTI Jan- 4 Andrew Yeboah. [address] [facility], [address] - [place], [address], [place]. tel:[phone] Referring Provider: Obinna Yañez, [address] [facility] [address] - [place], [place], [facility]. tel:[phone] OFFICE/OUTPATI ENT VISIT, EST-Detailed [facility], [address] [place] [address], [id number], [place] tel:[phone] [facility] Encounter for screening for other disorder Dec- 4 Adolfo Cline. [address] [place] [address], [id number], [place]. tel:[phone] Referring Provider: Marlyn Mata, [address], [address]. tel:[phone] OFFICE/OUTPATI ENT VISIT, EST-Detailed [facility], [address] [place] [address], [id number], [place] tel:[phone] [facility] provider note (chief complaint) Anxiety disorder, unspecifiedB lukasz mass index [BMI] 31.0-31.9, adult 4 Song Daniel. [address] [place], [place], [id number], [place]. tel:[phone] Referring Provider: Fredy Zuleta, [address] [place], [address]. tel:[phone] OFFICE/OUTPATI ENT VISIT, NEW [facility] , [address] [facility], [place], [address], [place] tel:[phone] [facility] Jerking movements of extremities 4 Angelo Lincoln. 6 [facility] [address], [place], [address], [place]. tel:[phone] Referring Provider: Latonia Stephens, 6 [facility] [address], [place], [address]. tel:[phone] [facility], [address] [place] [address], [id number], tel:[phone] [facility] Motor tic disorder 4 Lauren Jordan. [address] [place] [address], [facility] [address], [facility] [place], [address], [place]. tel:[phone] Referring Provider: Nikki harris, [address] [place] [address], [address] [facility] [place], [address]. tel:[phone] PREV VISIT, EST, AGE 18-39 [facility] At [address], [id number], [place] tel:[phone] [facility] Nurse Comments (chief complaint)p reventive exam (chief complaint)A nxiety / Depression (chief complaint) General medical examinationA nxiety disorder, unspecifiedC ardiac murmurHyperl ipidemia, mixedCommon wartBody mass index [BMI] 31.0-31.9, adultFrequen t UTIMotor tic disorderEnco unter for screening for other disorder 3 Lauren Jordan. [address] [place] [address], [address], [facility] [place], [place], [facility], . tel:[phone] Referring Provider: Nikki harris, [address] [place] [address], [address] [facility] [place], [place], [facility]. tel:[phone] OFFICE/OUTPATI ENT VISIT, EST-Expanded [facility], [address] [place] [address], [address], [id number], tel:[phone] [facility] comments (chief complaint) Umbilical bleedingBody mass index [BMI] 31.0-31.9, adult 3 Dipika Liao. [address] [place] [address], [facility] [address], [facility] [place], [address], . tel:[phone] Referring Provider: Ronald Bar, [address] [place] [address], [facility] 203 [facility] [place], [address]. tel:[phone] PREV VISIT, EST, AGE 18-39 [facility], [address] [place] [address], [id number], tel:[phone] [facility] preventive exam (chief complaint)C hronic Conditions (chief complaint) General medical examinationA nxiety disorder, unspecifiedB lukasz mass index [BMI] 30.0-30.9, adult Apr-2 2 Mellissa Dobson. [address] [place] [address], [facility] [address], [facility] [place], [place], [id number], [place]. tel:[phone] Referring Provider: Bronson Russell, [address] [place] [address], [facility] 203 [facility] [place], [address]. tel:[phone] [facility] , [address] [place] [address], [facility], tel:[phone] [facility] lesions (chief complaint) Other viral warts 1 Melecioozdi Diane. [address] [place] [address], [facility], . tel:[phone] Referring Provider: Kurtis Donald, [address] [place] [address], [address]. tel:[phone] PREV VISIT, EST, AGE 18-39 [facility], [address] [place] [address], [id number], [place] tel:[phone] [facility] Nurse Comments (chief complaint) General medical examinationB lukasz mass index [BMI] pediatric, greater than or equal to 95th percentile for age 1 Dakota Cardenas. [address], [facility], . tel:[phone] Referring Provider: Ronald Duncan, 6 [facility], [address], [facility]. tel:[phone] [facility], [facility] , [address] [place] [address], [facility], tel:[phone] [facility] lesions (chief complaint) Other viral warts 1 Lina Contreras. [address] [place] [address], [facility], . tel:[phone] Referring Provider: Kurtis Donald, [address] [place] [address], [address]. tel:[phone] OFFICE/OUTPATI ENT VISIT, EST-Expanded [facility], [address] [place] [address], [id number], [place] tel:[phone] [facility] Nurse Comments (chief complaint) Body mass index [BMI] pediatric, greater than or equal to 95th percentile for ageAcute swimmer's ear of right side 1 Adolfo Cline. [address] [place] [address], [id number], [place]. tel:[phone] Referring Provider: Suha Collazo, [address] [place] [address], [address], [address]. tel:[phone] [facility] , [address] [place] [address], [facility], tel:[phone] [facility] lesions (chief complaint) Other viral warts 1 Pakozdi Diane. [address] [place] [address], [facility], . tel:[phone] Referring Provider: Kurtis Donald, [address] [place] [address], [address]. tel:[phone] [facility] , [address] [place] [address], [facility], tel:[phone] [facility] lesions (chief complaint) Other viral warts 1 Pakozdi Diane. [address] [place] [address], [facility], [place]. tel:[phone] Referring Provider: Kurtis Donald, [address] [place] [address], [address]. tel:[phone] OFFICE/OUTPATI ENT VISIT, [facility] , [address] [place] [address], [facility], tel:[phone] [facility] wart(s) (chief complaint) Other viral wartsIrritan t hand dermatitis 1 Pakozdi Diane. [address] [place] [address], [facility], [place]. tel:[phone] Referring Provider: Kurtis Donald, [address] [place] [address], [address]. tel:[phone] [facility], [address] [place] [address], [address], [facility], tel:[phone] [facility] Nurse Comments (chief complaint) Encounter for immunization 1 Nurse Services. [address] [facility], [place], [place], [id number], [place]. tel:[phone] Referring Provider: Luca Beach I, [address] [facility] [address], [place], [address]. tel:[phone] [facility], 6 [facility], [address], [place], [address], [place] tel:[phone] [facility] Stuttering 0 Douvivory Quintero. [address] [facility], [address] , [place], [address], [place]. tel:[phone] OFFICE/OUTPATI ENT VISIT, [facility] , [address] [place] [address], [id number], [place] tel:[phone] [facility] Flu-like symptoms (chief complaint)m d comments (chief complaint) Viral upper respiratory tract infectionCOV ID-19 Jun-2 0 Dennis Alvarado. 192 [facility], [address] [place] [address], [id number], [place]. tel:[phone] Referring Provider: Christiano Collins, [address] [facility] [address] [place] [address], [address]. tel:[phone] OFFICE/OUTPATI ENT VISIT, EST-Expanded [facility], [address] [facility], [address], [place], [address], [place] tel:[phone] [facility] UTI (chief complaint) Bacterial UTIConstipat ion in male Sep- 0 Andrew Yeboah. 1 [facility], [address] - [facility], [place], [address], [place]. tel:[phone] Referring Provider: Obinna Yañez, 1 [facility] [address] - [facility], [place], [address]. tel:[phone] [facility] , [address] [place] [address], [place], [address], [place] [facility] No Information Jun- 0- 0 [facility] [address], [place], [place], [id number], [place]. tel:[phone] Referring Provider: Obinna Yañez, 1 [facility] [address] - [facility], [place], [address]. tel:[phone] OFFICE/OUTPATI ENT VISIT, EST-Detailed [facility], [address] [facility], [address], [place], [address], [place] tel:[phone] [facility] UTI (chief complaint) DysuriaBacte rial UTIConstipat ion in male Jun-0 0 Andrew Yeboah. 1 [facility], [address] - [facility], [place], [address], [place]. tel:[phone] Referring Provider: Obinna Yañez, 1 [facility] [address] - [facility], [place], [address]. tel:[phone] PREV VISIT, EST, AGE 18-39 [facility], [address] [facility], [address], [place], [address], [place] tel:[phone] [facility] Well child (chief complaint) General medical examinationO ther specified counselingDi etary counseling and surveillance BMI pediatric, 85% to less than 95th percentile for age 0 Shirley Quintero. [address] [place] [address], [address] , [place], [address], [place]. tel:[phone] Referring Provider: Leon Abdul, [address] [place] [address] [address], [place], [address]. tel:[phone] [facility], [address] [place], [place], [id number], [place] tel:[phone] [facility] routine exam (chief complaint) Encounter for examination of eyes and vision with abnormal findings 0 Enrrique Martel. [address] [place], [id number], . tel:[phone] Referring Provider: Tahmina Osuna, [address] [facility], [place], [address]. tel:[phone] PREV VISIT, EST, AGE 12-17 [facility], 6 [facility], Suite [facility], [place], [place], [facility], tel:[phone] [facility] Well child (chief complaint) Other specified counselingDi etary counseling and surveillance Encntr for routine child health exam w/o abnormal findingsBMI pediatric, 5th percentile to less than 85% for ageEncounter for screening for other disorder Braydon- 9 Shirley Quintero. [address] [place] [address], Suite [facility], [place], [facility], . tel:[phone] Referring Provider: Leon Abdul, [address] [facility] Suite [facility], [place], [facility]. tel:[phone] OFFICE/OUTPATI ENT VISIT, EST-Expanded [facility], 1 [facility], Suite [facility], [place], [address], [place] tel:[phone] [facility] UTI (chief complaint) DysuriaConst ipation in male Nov-0 8 Andrew Yeboah. [address] [place] [address], Suite [facility] [place], [place], [facility], [place]. tel:[phone] OFFICE/OUTPATI ENT VISIT, EST-Expanded [facility], 1 [facility], [address], [place], [address], [place] tel:[phone] [facility] Dysuria (chief complaint) Bacterial UTIConstipat ion in maleDysuria Sep- 8 Andrew Yeboah. 1 [facility], [address] [facility] [place], [address], [place]. tel:[phone] Referring Provider: Obinna Yañez, 1 [facility] [address] - [facility], [place], [address]. tel:[phone] OFFICE/OUTPATI ENT VISIT, EST-Expanded [facility], 1 [facility], [address], [place], [address], [place] tel:[phone] [facility] Dysuria (chief complaint) Dysuria 8 Andrew Yeboah. 1 [facility], [address] - [facility], [place], [address], [place]. tel:[phone] Referring Provider: Obinna Yañez, 1 [facility] [address] - [facility], [place], [address]. tel:[phone] [facility], [address] [place] [address], [address], [place], [address], [place] tel:[phone] [facility] Cardiac Testing-Alexandra dgewater No Information 8 Shantell Woodard. [address] [place] [address] 100, [address], [place], [address], [place]. tel:[phone] Referring Provider: Lu Griffin, [address] [place] [address] [address], [place], [address]. tel:[phone] Office/Outpati ent Visit, New Comprehensive [facility], [address] [facility], [address], [place], [address], [place] tel:[phone] [facility] Cardio-[address] No Information 8 Elias Leigh. [address] [facility], [address] [place], [address], [place]. tel:[phone] Referring Provider: Lu Griffin, [address] [place] [address] [address], [place], [address]. tel:[phone] OFFICE CONSULTATION [facility], [address] [place], [place] [address], [place], [address], [place] tel:[phone] [facility] Cardio-[address] [place] Chest Pain (chief complaint)S OB (chief complaint)V isit Note (chief complaint)C ardiovascul ar Review (chief complaint) Atypical chest painDyspnea on exertion 8 Elias Leigh. [address] [facility], [address], [place], [place], [facility], . tel:[phone] Referring Provider: Lu Griffin, [address] [facility] [address], [place], [place], [facility]. [phone] OFFICE CONSULTATION [facility], [address] [facility], [address], [place], [place], [facility], tel:[phone] [facility] testicular pain (chief complaint)d ysuria (chief complaint) OrchalgiaDys uria 8 Andrew Yeboah. [address] [facility], [address] - [facility], [place], [place], [facility], . tel:[phone] Referring Provider: Leon Abdul, [address] [place] [address] [address], [place], [place], [facility]. tel:[phone] PREV VISIT, EST, AGE 12-17 [facility], [address] [place] [address], Suite [facility], [place], [place], [facility], tel:[phone] [facility] Well child (chief complaint) Encntr for routine child health exam w/o abnormal findingsOthe r specified counselingDi etary counseling and surveillance Encounter for exam of eyes and vision w/o abnormal findingsBMI pediatric, 5th percentile to less than 85% for age 8 Shirley Quintero. [address] [place] [address], [address] , [place], [place], [facility], . tel:[phone] Referring Provider: Leon Abdul, [address] [place] [address] [address], [place], [place], [facility]. tel:[phone] OFFICE/OUTPATI ENT VISIT, EST-Expanded [facility], [address] [place] [address], Suite [facility], [place], [address], tel:[phone] [facility] Rash (chief complaint) Poison nikolas dermatitis 8 Alfa Ya. [address] [place] [address], Suite [facility], [place], [address], . tel:[phone] Referring Provider: Bhakti Culver, [address] [place] [address] Suite [facility], [place], [place], [facility]. tel:[phone] OFFICE/OUTPATI ENT VISIT, EST-Expanded [facility], [address] [place] [address], Suite [facility], [place], [place], [facility], tel:[phone] [facility] [facility] dysuria (chief complaint) Dysuria 8 Boogie Christopher. [address] [place] [address], [place] [address] - [place], [place], [facility], . tel:[phone] Referring Provider: Leon Abdul, [address] [place] [address] Suite [facility], [facility]. tel:[phone] OFFICE/OUTPATI ENT VISIT, EST-Detailed [facility], [address] [place] [address], Suite [facility], [place], [place], [facility], tel:[phone] [facility] chest pain (chief complaint)N urse Comments (chief complaint) Palpitations 8 Carlin Espinoza. [address] [place] [address], Suite [facility] , [place], [place], [facility], [place]. tel:[phone] Referring Provider: Alexis Donald, [address] [place] [address] Suite [facility], [facility]. tel:[phone] PREV VISIT, EST, AGE 12-17 [facility], [address] [place] [address], Suite [facility], [place], [address], tel:[phone] [facility] Well child (chief complaint) Encntr for routine child health exam w/o abnormal findingsBMI pediatric, 5th percentile to less than 85% for ageAnxiety disorder, unspecified 7 Boogie Christopher. [address] [facility], [address] - [facility], [place], [address], [place]. tel:[phone] Referring Provider: Leon Abdul, [address] [facility] [address], [place], [address]. tel:[phone] Office/Outpati ent Visit, [facility], [address] [address], [place], [place], [id number], [place] tel:[phone] [facility] Follow up and Left hand pain (chief complaint) Mallet finger of left finger(s)Cinthya sed displaced fracture of distal phalanx of left little finger, initial encounter 7 Peggy Griffin. [address], [facility] , [place], [address], [place]. tel:[phone] Referring Provider: Elias Paz, [address] [facility] , [place], [address]. tel:[phone] OFFICE/OUTPATI ENT VISIT, EST-Expanded [facility], [address] [place] [address], Suite [facility], [place], [address], [place] tel:[phone] [facility] Injured pinky (chief complaint) Injury of left little finger, initial encounter 7 Sarah Miranda. [address] [facility] Suite [facility], [facility] , [place], [address], [place]. tel:[phone] Referring Provider: Leon Abdul, [address] [place] [address] [address], [place], [address]. tel:[phone] PREV VISIT, EST, AGE 12-17 [facility], [address] [place] [address], Suite [facility], [place], [address], [place] tel:[phone] [facility] Well child (chief complaint) Encntr for routine child health exam w/o abnormal findingsOthe r specified counselingDi etary counseling and surveillance Encounter for exam of ears and hearing w/o abnormal findingsBMI pediatric, 5th percentile to less than 85% for ageAnxiety 6 Mary Robert. [address] [facility], [address], [address], [place]. tel:[phone] Referring Provider: Leon Abdul, [address] [facility] [address], [address]. tel:[phone] OFFICE/OUTPATI ENT VISIT, [facility], [address] [place] [address], [id number], [place] tel:[phone] [facility] Rash (chief complaint) Contact dermatitis, unspecified contact dermatitis type, unspecified trigger 6 Nolan Quintero. [address] [place] [address], [id number], [place]. tel:[phone] Referring Provider: Leon Francisco, [address] [place] [address], [address]. tel:[phone] [facility], [address] [place], [place], [id number], [place] tel:[phone] [facility] No Information 6 David Rodrigues. 6 [place], [place], [id number], [place]. tel:[phone] OFFICE/OUTPATI ENT VISIT, EST-Expanded [facility], [address] [place] [address], Suite [facility], [place], [address], [place] tel:[phone] [facility] sore throat (chief complaint) Acute pharyngitis, unspecified 6 Sarah Miranda. [address] [facility] Suite [facility], [facility] , [place], [address], [place]. tel:[phone] Referring Provider: Luca Beach I, [address] [facility] [address], [place], [facility]. tel:[phone] PREV VISIT, EST, AGE 12-17 [facility], [address] [place] [address], [facility], tel:[phone] [facility] Well child (chief complaint) Other specified counselingDi etary counseling and surveillance Encounter for exam of eyes and vision w/o abnormal findingsBMI pediatric, 5th percentile to less than 85% for ageScoliosis Encounter for routine child health exam w abnormal findingsEnco unter for immunization 5 [facility]. [address] [place] [address], [place] [address], [place], [facility], . tel:[phone] Referring Provider: Leon Abdul, [address] [place] [address], [facility]. tel:[phone] OFFICE/OUTPATI ENT VISIT, EST-Expanded [facility], [address] [place] [address], [facility], tel:[phone] [facility] Follow Up of congestion (chief complaint)N urse Comments (chief complaint) Acute bronchitisAc an sinusitis 5 Shirley Quintero. [address] [place] [address], [place], [facility], . tel:[phone] Referring Provider: Leon Abdul, [address] [place] [address], [facility]. tel:[phone] OFFICE/OUTPATI ENT VISIT, EST-Expanded [facility], [address] [place] [address], [address], [facility], tel:[phone] [facility] congestion (chief complaint)N urse Comments (chief complaint) Acute sinusitisAcu te bronchitis 5 Shirley Quintero. [address] [place] [address], [place], [facility], . tel:[phone] Referring Provider: Leon Abdul, [address] [place] [address] [address], [address]. tel:[phone] [facility] [place], [address] [place], [place], [id number], [place] tel:[phone] [facility] No Information 5 David Rodrigues. [address] [place], [place], [id number], [place]. tel:[phone] [facility], [address] [place] [address], [address], [place], [address], tel:[phone] [facility] Nurse Comments (chief complaint) Influenza Vaccine 4 Nurse Services. [address] [place] [address], [id number], . [phone] Referring Provider: Leon Abdul, [address] [place] [address] [address], [place], [facility]. tel:[phone] PREV VISIT, EST, AGE 12-17 [facility], [address] [place] [address], [address], [place], [address], [place] tel:[phone] [facility] Well child (chief complaint) Routine infant or child health checkEXERCIS E COUNSELINGDI ETARY SURVEIL/COUN SELBMI,PEDIA TRIC 5% - <85% Sep-0 4 Shirley Quintero. [address] [place] [address], [address], [address], [place]. tel:[phone] Referring Provider: Leon Abdul, [address] [place] [address] [address], [address]. tel:[phone] [facility] [place], [address] [place], [place], [id number], [place] tel:[phone] [facility] No Information 4 Rylee Jordan. [address] [place], [id number], [place]. tel:[phone] [facility] [place], [address] [place], [place], [id number], [place] tel:[phone] [facility] No Information Mar-0 4 Rylee ron Nikki. 6 B [facility], [place], [place], [id number], [place]. tel:[phone] OFFICE/OUTPATI ENT VISIT, [facility] , [address] [place] [address], [facility], tel:[phone] [facility] rash (chief complaint) SKIN ANOMALY NECDERMATITI S NOS 4 Evelyn Menon. [address] [address], [place], [place], [id number], [place]. tel:[phone] Referring Provider: Lynsey Rivas, [address] [address], [place], [address]. tel:[phone] [facility] [place], [address] [place], [place], [id number], [place] tel:[phone] [place] [address] Eye No Information 3 Cash Remington. 6 B [facility], [place], [place], [id number], [place]. tel:[phone] PREV VISIT, EST, AGE 5-11 [facility], [address] [place] [address], [address], [place], [facility], [place] tel:[phone] [facility] Well child - 13 Years (chief complaint) Well Child CheckALLERGI C RHINITIS NOSND OTHER SPECF VACNATIONVAC CINATION FOR DTP-DTAPWell Child Check 3 Shirley Quintero. [address] [facility], [address]-[facility] , [place], [place], [facility], [place]. tel:[phone] Referring Provider: Leon Abdul, [address] [facility] [address], [address]. tel:[phone] [facility], [address] [facility], [place], [place], [id number], [place] tel:[phone] Martingabriela Alvarado [facility] No Information 3 Rylee ron Nikki. 6 B [facility], [place], [place], [id number], [place]. tel:[phone] [facility], [address] [place] [address], Suite [facility], [place], [address], tel:[phone] [facility] Influenza Vaccine 3 Nurse Services. [address] [facility], [place], [place], [id number], [place]. tel:[phone] Referring Provider: Kurtis Donald, [address] [place] [address], [facility]. tel:[phone] PREV VISIT, EST, AGE 5-11 [facility], [address] [place] [address], Suite [facility], [place], [place], [facility], tel:[phone] [facility] Well child - 12 Years (chief complaint) Well Child CheckEYE & VISION EXAMINATIONE XAM EARS & HEARING NECNEED PRPHYL VC VRL [facility] Child Check 2 Shirley Quintero. [address] [place] [address], [place], [facility], . tel:[phone] Referring Provider: Leon Abdul, [address] [place] [address], [facility]. tel:[phone] [facility], [address] [place] [address], [address], [facility], tel:[phone] [facility] No Information 2 Shirley Quintero. [address] [place] [address], [place], [facility], [place]. tel:[phone] OFFICE/OUTPATI ENT VISIT, EST [facility], [address] [place] [address], [address] [place] [address], [facility], tel:[phone] [facility] Nurse Comments (chief complaint) Warts - All Sites, Verucca Vulgaris 1 Tonia Michele. [address] [place] [address], Suite [facility], [place], [facility], . tel:[phone] Referring Provider: Leny Rodrigues, [address] [place] [address] Suite [facility], [facility]. tel:[phone] PREV VISIT, EST, AGE 5-11 [facility], [address] [place] [address], [address] [place] [address], [facility], tel:[phone] [facility] No Information 1 Shirley Quintero. [address] [place] [address], [place] [address], [place], [facility], . tel:[phone] Referring Provider: Leon Abdul, [address] [place] [address] Suite [facility], [facility]. tel:[phone] OFFICE/OUTPATI ENT VISIT, EST [facility], [address] [place] [address], [place] [address], [place], [facility], tel:[phone] [facility] Acute pharyngitis 1 Malachi Hlul. [address] [place] [address], Suite [facility], [place], [facility], . tel:[phone] Referring Provider: Kurtis Donald, [address] [place] [address] Suite [facility], [facility]. tel:[phone] OFFICE/OUTPATI ENT VISIT, EST [facility], [address] [place] [address], [address], [facility], tel:[phone] [facility] No Information 0 Shirley Quintero. [address] [place] [address], Suite [facility], [facility], . tel:[phone] Referring Provider: Leon Abdul, [address] [place] [address] [address], [place], [facility]. tel:[phone] OFFICE/OUTPATI ENT VISIT, EST [facility], [address] [place] [address], [address] [place] [address], [facility], tel:[phone] [facility] UTI 0 Malachi Hull. [address] [place] [address], Suite [facility], [place], [facility], . tel:[phone] Referring Provider: Kurtis Donald, [address] [place] [address], [facility]. tel:[phone] OFFICE/OUTPATI ENT VISIT, EST [facility], [address] [place] [address], [address] [place] [address], [facility], tel:[phone] [facility] DYSURIA 0 Malachi Hull. [address] [place] [address], Suite [facility], [facility], . tel:[phone] Referring Provider: Kurtis Donald, [address] [place] [address], [facility]. tel:[phone] PREV VISIT, EST, AGE 5-11 [facility], [address] [place] [address], [address] [place] [address], [facility], tel:[phone] [facility] No Information 0 Verenice Mcdonald , [place], [address], [place]. tel:[phone] Referring Provider: Leon Abdul, [address] [place] [address] Suite [facility], [facility]. tel:[phone] OFFICE/OUTPATI ENT VISIT, EST [facility], [address] [place] [address], Suite [facility], [place], [facility], tel:[phone] [facility] No Information 0 Tremayne Garcia. [address] [facility], [address], [place], [facility], . tel:[phone] Referring Provider: Jose Yañez, [address] [place] [address] [address], [place], [facility]. tel:[phone] OFFICE/OUTPATI ENT VISIT, EST [facility], [address] [place] [address], [address] [place] [address], [facility], tel:[phone] [facility] No Information 0 Tremayne Garcia. [address] [place] [address], Suite [facility], [place], [facility], . tel:[phone] Referring Provider: Jose Yañez, [address] [place] [address] Suite [facility], [facility]. tel:[phone] OFFICE/OUTPATI ENT VISIT, EST [facility], [address] [place] [address], [address] [place] [address], [facility], tel:[phone] [facility] No Information 0 Tremayne Garcia. [address] [facility], Suite [facility], [facility], . tel:[phone] Referring Provider: Jose Yañez, [address] [place] [address] Suite [facility], [facility]. tel:[phone] OFFICE/OUTPATI ENT VISIT, EST [facility], [address] [place] [address], [address] [place] [address], [facility], [place] tel:[phone] [facility] No Information 0 Shirley Quintero. [address] [place] [address], Suite [facility], [facility], . tel:[phone] Referring Provider: Leon Abdul, [address] [place] [address] Suite [facility], [facility]. tel:[phone] OFFICE/OUTPATI ENT VISIT, EST [facility], [address] [place] [address], Suite [facility], [place], [place], [facility], [phone] [facility] No Information 9 Munirivory Quintero. [address] [place] [address], [address], [place], [facility], . tel:[phone] Referring Provider: Leon Abdul, [address] [place] [address] [address], [place], [facility]. tel:[phone] PREV VISIT, EST, AGE 5-11 [facility], [address] [place] [address], Suite [facility], [place], [place], [facility], tel:[phone] [facility] No Information 9 Shirley Quintero. [address] [place] [address], [place], [facility], . tel:[phone] Referring Provider: Leon Abdul, [address] [place] [address] [address], [place], [facility]. tel:[phone] [facility], [address] [place] [address] [place] [address], [facility], tel:[phone] [facility] No Information 9 Sandra Tenorio. [address] [place] [address]-[facility] [place], [id number], [place]. tel:[phone] Referring Provider: Randal Delarosa, [address] [place] [address] [address], [address]. tel:[phone] [facility], [address] [place] [address] Suite [facility], [place], [address], tel:[phone] [facility] No Information 9 Sandra Tenorio. [address] [place] [address], Suite [facility] [place], [place], [id number], [place]. tel:[phone] Referring Provider: Randal Delarosa, [address] [place] [address] [place] [address], [address]. [phone] OFFICE/OUTPATI ENT VISIT, EST [facility], [address] [place] [address], [facility], tel:[phone] [facility] No Information 0 9 Maniar Anoli. 6 [facility], [place] [address]-[facility] [place], [id number], . tel:[phone] Referring Provider: Randal Delarosa, [address] [place] [address] [place] [address], [address]. tel:[phone] OFFICE/OUTPATI ENT VISIT, EST [facility], [address] [place] [address] [place] [address], [facility], tel:[phone] [facility] No Information 9 Sandra Jona. [address] [place] [address], Suite [facility] [place], [id number], [place]. tel:[phone] Referring Provider: Randal Delarosa, [address] [place] [address] [place] [address], [address]. tel:[phone] OFFICE/OUTPATI ENT VISIT, EST [facility], [address] [place] [address] [place] [address], [facility], [place] tel:[phone] [facility] No Information 9 Sandra Jona. [address] [place] [address], Suite [facility] [place], [id number], . tel:[phone] Referring Provider: Randal Delarosa, [address] [place] [address] [address], [address]. tel:[phone] OFFICE CONSULTATION [facility], [address] [place] [address] Suite [facility], [place], [place], [facility], tel:[phone] [facility] No Information Apr-0 2-200 9 Sandra Tenorio. [address] [facility], [address], [id number], [place]. tel:[phone] Referring Provider: Randal Delarosa, [address] [place] [address] Suite [facility] [place], [address]. tel:[phone] OFFICE/OUTPATI ENT VISIT, EST [facility], [address] [place] [address], Suite [facility], [place], [place], [facility], tel:[phone] [facility] No Information 7200 9 Shraddha Jeter. [address] [place] [address], Suite [facility], [facility], . tel:[phone] Referring Provider: Steffany Brown, [address] [place] [address] [address], [place], [facility]. tel:[phone] PREV VISIT, EST, AGE 5-11 [facility], [address] [place] [address], [address] [place] [address], [facility], tel:[phone] [facility] SCREEN LIPOID DISORDERS Roly-0 9-200 8 Shirley Quintero. [address] [place] [address], [address], [place], [facility], [place]. tel:[phone] OFFICE/OUTPATI ENT VISIT, EST [facility], [address] [place] [address], Suite [facility], [place], [facility], tel:[phone] [facility] No Information Mar-0 4-200 8 Jairo Mckinney. [address] [facility], [address] , [place], [facility], . tel:[phone] OFFICE/OUTPATI ENT VISIT, EST [facility], 6 [facility], [address], [facility], tel:[phone] [facility] No Information Mar-0 8 Yong Segovia. [address] [facility], [place] [address] , [place], [place], [facility], . tel:[phone] OFFICE/OUTPATI ENT VISIT, EST [facility], 6 [facility], [place] [address], [place], [place], [facility], tel:[phone] [facility] No Information 8 [facility]. [address] [place] [address], [place] [address], [place], [id number], . tel:[phone] PREV VISIT, EST, AGE 5-11 [facility], [address] [place] [address], [place] [address], [place], [facility], tel:[phone] [place] [facility] No Information [place]- 7 [facility]. [address] [place] [address], [place] [address], [place], [id number], . tel:[phone] [facility], [address] [place] [address], [address], [facility], tel:[phone] [facility] No Information 6 Nurse Services. [address] [place], [place], [id number], . tel:[phone] Family History Family Member Type Diagnosis Age At Onset Grandmother Problem (finding) stroke Grandfather Problem (finding) congestive heart failur e Problem (finding) No family history of Di abetes mellitus Problem (finding) No family history of Gl [place] Immunizations Vaccine Date Status Comments Tdap administered Source: New Imm unization Record HPV (9-valent) administered Source: New I mmunization Record Influenza, injectable, quadrivalent, preservative free, 0.5mL administered Source: New Immuniza tion Record meningococcal B, OMV, 2 dose schedule administered Source: New Immuniza tion Record meningococcal B, OMV, 2 dose schedule administered Source: New Immuniza tion Record Meningococcal MCV4O administered Source: New Immunization Record Influenza, live, intranasal, quadrivalent administered Source: New Immuniza tion Record Influenza, live, intranasal, quadrivalent administered Source: New Immuniza tion Record Hep A (ped/adol, 2 dose) administered Abi rce: New Immunization Record Tdap administered Source: New Imm unization Record MCV4 (11-55 yrs) administered Source: New Immunization Record Influenza virus vaccine, intranasal administered Source: New Immuniza tion Record Influenza virus vaccine, intranasal administered Source: New Immuniza tion Record Hep A (ped/adol, 2 dose) administered Abi rce: New Immunization Record FLU VACCINE, NASAL administered Source: N ew Immunization Record CHICKEN POX VACCINE, SC administered Sour ce: New Immunization Record IPV administered Source: New Imm unization Record MMR administered Source: New Imm unization Record DPT/DTaP administered Source: New Imm unization Record varicella administered Source: New Imm unization Record polio, inactivated (IPV) administered Abi rce: New Immunization Record DTaP administered Source: New Imm unization Record MMR administered Source: New Imm unization Record HIB administered Source: Parents Written Record pneumo (under 5) (PCV7) administered Sour ce: New Immunization Record hep B (ped/adol, 3 dose) administered Abi rce: New Immunization Record pneumo (under 5) (PCV7) administered Sour ce: New Immunization Record DTaP administered Source: New Imm unization Record HIB administered Source: Parents Written Record pneumo (under 5) (PCV7) administered Sour ce: New Immunization Record polio, inactivated (IPV) administered Abi rce: New Immunization Record hep B (ped/adol, 3 dose) administered Abi rce: New Immunization Record DTaP administered Source: New Imm unization Record HIB administered Source: Parents Written Record pneumo (under 5) (PCV7) administered Sour ce: New Immunization Record polio, inactivated (IPV) administered Abi rce: New Immunization Record hep B (ped/adol, 3 dose) administered Abi rce: New Immunization Record DTaP administered Source: New Imm unization Record Payers Payer name Insurance type Covered libertarian ID Authoriza tion(s) [employer] CI [id number] [employer] [place] [facility] CI [id number] [employer] CI [id number] [employer] CI [id number] [employer] CI [id number] [employer] CI [id number] [employer] CI [id number] [employer] CI [id number] Social History Type Description Quantity Date Captured Comments Sex Male Smoking Status No Information Chief Complaint And Reason For Visit No Information Reason For Referral Reason For Referral No Information Plan Of Treatment Date Type Action Status Goal Hep C Ab due Goal HIV due Goal Alcohol Misuse s creen. Due on due Goal Drug Abuse Scree john. Due on due Goal Alcohol Misuse s creen. Due on due Goal HIV due Goal Hep C Ab due Goal Drug Abuse Scree john. Due on due Goal Drug Abuse Scree john. Due on due Goal Alcohol Misuse s creen. Due on due Goal HIV due Goal Hep C Ab due Goal Lifestyle educat ion regarding diet completed Goal HIV due Goal Alcohol Misuse s creen. Due on due Goal Drug Abuse Scree jonh. Due on due Goal Hep C Ab due Goal Lifestyle educat ion regarding diet completed Goal HIV due Goal Drug Abuse Scree john. Due on due Goal Alcohol Misuse s creen. Due on due Goal Hep C Ab due Goal HIV due Goal Drug Abuse Scree john. Due on due Goal Alcohol Misuse s creen. Due on due Goal Hep C Ab due Goal Lipid panel. Due on 024 due Goal HIV due Goal Hep C Ab due Goal Hep C Ab due Goal Drug Abuse Scree john. Due on due Goal Alcohol Misuse s creen. Due on due Goal HIV due Goal Alcohol Misuse s creen. Due on due Goal HIV due Goal Drug Abuse Scree john. Due on due Goal Hep C Ab due Goal Drug Abuse Scree john. Due on due Goal Hep C Ab due Goal Alcohol Misuse s creen. Due on due Goal HIV due Goal HIV due Goal Hep C Ab due Goal Alcohol Misuse s creen. Due on due Goal Drug Abuse Scree john. Due on due Goal Drug Abuse Scree john. Due on due Goal Hep C Ab due Goal HIV due Goal Hearing Screen (18-21yrs) du e Goal Hep C Ab due Goal Hearing Screen (18-21yrs) du e Goal Drug Abuse Scree john. Due on due Goal HIV due Goal HIV due Goal Hep C Ab due Goal Hearing Screen (18-21yrs) du e Goal Drug Abuse Scree john. Due on due Goal Hearing Screen (18-21yrs) du e Goal Hep C Ab due Goal Drug Abuse Scree john. Due on due Goal HIV due Goal Hearing Screen (18-21yrs) du e Goal Hep C Ab due Goal HIV due Goal Drug Abuse Scree john. Due on due Goal Hearing Screen (18-21yrs) du e Goal Hep C Ab due Goal Drug Abuse Scree john. Due on due Goal HIV due Goal Hep C Ab due Goal Hearing Screen (18-21yrs) du e Goal HIV due Goal Drug Abuse Scree john. Due on due Goal Hep C Ab due Goal Hearing Screen (18-21yrs) du e Goal Drug Abuse Scree john. Due on due Goal HIV due Goal Drug Abuse Scree john. Due on due Goal Alcohol Misuse s creen. Due on due Goal PHQ9. Due on due Goal HIV due Goal Hep C Ab due Goal Hearing Screen (18-21yrs) du e Goal Drug Abuse Scree john. Due on due Goal Hearing Screen (18-21yrs) du e Goal PHQ9. Due on due Goal Hep C Ab due Goal HIV due Goal Drug Abuse Scree john. Due on due Goal PHQ9. Due on due Goal Alcohol Misuse s creen. Due on due Goal Hep C Ab due Goal Hearing Screen (18-21yrs) du e Goal HIV due Goal HIV. Due on due Goal Hearing Screen (18-21yrs) du e Goal Drug Abuse Scree john. Due on due Goal Hep C Ab. Due on due Goal Hearing Screen (18-21yrs) du e Goal PHQ9. Due on due Goal HIV. Due on due Goal Drug Abuse Scree john. Due on due Goal Hep C Ab. Due on due Goal Lifestyle educat ion regarding diet completed Goal Hearing Screen (18-21yrs) du e Goal HIV. Due on due Goal Hep C Ab. Due on due Goal PHQ9. Due on due Goal Alcohol Misuse s creen. Due on due Goal Drug Abuse Scree john. Due on due Goal Tobacco cessation counseling completed Goal Hearing Screen, 6-18. Due on due Goal Lifestyle educat ion regarding diet completed Goal Vision Screen. Due on due Goal Hearing Screen, 6-18. Due on due Goal Vision Screen. Due on due Goal Hearing Screen, 6-18. Due on due Goal Hearing Screen, 6-18. Due on due Goal Vision Screen. Due on due Goal Vision Screen. Due on due Goal Hearing Screen, 6-18. Due on due Goal Hearing Screen, 6-18. Due on due Goal Vision Screen. Due on due Goal Hearing Screen, 6-18. Due on due Goal Vision Screen. Due on due Goal Hearing Screen, 6-18. Due on due Goal Hearing Screen, 6-18. Due on due Goal Hearing Screen, 6-18. Due on due Goal Cholesterol, Total 17-21 due Goal Hearing Screen, 6-18. Due on due Referral Ordered: Orthopedic Surgery (related to Acute pain of right shoulder) ordered Referral Referred To: [address] [place], [address] [phone] Ordered: Referrals: Orthopedic Surgery. Location: [facility]. Consult and Treat Appointment date/timeframe: 2025 ordered Referral Referred To: [address] [facility], [address] [place], [address] [phone] Ordered: Referrals: Physical Therapy. Location: [facility]. Consult and Treat Appointment date/timeframe: 02/27/2024 ordered Referral Referred To: Katya Yung [address] [facility]
[address] [place], [address] [phone] Ordered: Referrals: Neurology. Katya Yung. Location: [facility]. Consult and Treat Appointment date/timeframe: 02/03/2024 ordered Referral Referred To: [address] [place] [address]
[address] [place], [address] [phone] Ordered: Referrals: Speech Therapy. Location: [facility] at [facility]. Consult and Treat Appointment date/timeframe: 09/28/2020 ordered Future Order: Radiology Order MR I Brain (Inc Brain Stem) Without Contrast ([id number]), Appointment on: Ordered Future Order: Radiology Order Ec ho With Doppler And Color Flow, Complete ([id number]), Appointment on: Ordered Future Order: Radiology Order Ec ho With Doppler And Color Flow, Complete ([id number]), Appointment on: Ordered Future Order: Radiology Order Ec ho Doppler Color Flow ([id number]) ([id number]), Ordered on: Ordered Future Order: Radiology Order St ress Test using Dewey protocol ([id number]), Ordered on: Ordered History Of Present Illness Encounter Date Complaint History Of Prese nt Illness Chronic Conditions 1) Attention deficit hyperactivity disorder (ADHD), 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 Tried ConcertaMore energy in the am. Had a sore throat and jaw pain which resolved after stopping. NO CP, palp, SOB. Discussed options. ) Nurse Comments Physical tension in jaw, potentially contributing to urinary frequency. Progressive muscle relaxation. Night terrors- woke up praying. Not episcopal. Restless sleep in general. 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 Trialed Guanfacine, Adderall. More tired since stopping Adderall last week. Has some mild SE. )2) TOSHA (generalized anxiety disorder) (onset 02/17/2024; Chronic.)3) Major depressive disorder, recurrent, moderate (onset 02/17/2024; Chronic.)4) Obsessive-compulsive disorder, unspecified type (onset 02/17/2024; Chronic.) LUTS Alfuzosin prescr ibed 03/30/2025On daily nitrofurantoin at night for UTI prophylaxisUrinalysis neg for blood / LE / nitritePVR 91 mlOccasional urinary hesitancy (improved). Notes post-void dribbleGoing back to school in 3 weeks---02/07/2024 renal U/S: normal kidneys and bladder11/03/2024 urine microscopy 11-25 RBCs/hpf, 11-25 WBCs/hpf11/03/2024 urine culture >100k cfu/ml E. coliAt OV 11/03/2024, pt was prescribed Macrobid x 5 days for therapeutic dose and daily Macrobid for UTI prophylaxis03/30/2025 cystoscopy notable for normal urethra, normal sized prostate (but with tight bladder neck appearance), and mildly trabeculated bladder containing moderate whitish debris. No bladder tumors. No bowel/bladder fistula back pain The problem is f luctuating. It occurs intermittently. Location of pain is lower back.There is no radiation of pain. The patient describes the pain as sharp. Context: lifting a heavy object and no injury. Symptoms are aggravated by bending and twisting. 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 Taking Guanfacine 1mg ER NO SE or improvements yet. Discussed options. Mostly r/t trouble with reading and comprehension. 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 martinez and had shoulder injection of corticosteroid and lidocaine.pt notes pain not improved and has tingling in right hand thenar eminence My right shoulder hurts. Onset 04/02/2025. Severity level is moderate. It occurs Frequent and is stable. Location: right and Shoulder. The pain radiates to the None. The pain is Aching. Context: there is No injury. The pain is aggravated by Lifting and Pulling. The pain is relieved by Pain/RX meds. Anxiety / Depression This is a f ollow up visit. Related symptoms are control - good. There is continuation of initial symptoms and improvement of initial symptoms. The patient reports functioning as not difficult at all. The patient presents with anxious/fearful thoughts, depressed mood, difficulty concentrating, difficulty falling asleep, difficulty staying asleep, diminished interest or pleasure, restlessness and thoughts of or suicide but denies excessive worry, fatigue, loss of appetite, paranoia, poor judgment or racing thoughts. The patient's risk factors include history of depression. The Anxiety / Depression is aggravated by conflict or stress and lack of sleep. The Anxiety / Depression is associated with irritability. Chronic Conditions 1) TOSHA (gener alized anxiety disorder) (onset 02/17/2024; Chronic.)2) Major depressive disorder, recurrent, moderate (onset 02/17/2024; Chronic. Stable on current meds. One episode of passive SI. Was able to handle with coping skills. )3) Obsessive-compulsive disorder, unspecified type (onset 02/17/2024; Chronic.)4) Autistic disorder (Chronic.) shoulder pain Onset: 1 day ago . Location: right shoulder. Context: there is no injury. The pain is aggravated by movement and pushing. Pertinent negatives include bruising and joint tenderness. Additional information: right shoulder pain since yesterday no known injury . cystoscopy 03/10/2025 urine microscopy without significant RBCs03/10/2025 urine culture no growthDoxycycline prescribed 03/11/2025. Has difficulty empyting bladder. Abx changed to Bactrim DS 03/23/2025Here for office cystoscopy to rule out urethral stricture disease. Pt completed his last dose of Bactrim DS this morning---02/07/2024 renal U/S: normal kidneys and bladder11/03/2024 urine microscopy 11-25 RBCs/hpf, 11-25 WBCs/hpf11/03/2024 urine culture >100k cfu/ml E. coliAt OV 11/03/2024, pt was prescribed Macrobid x 5 days for therapeutic dose and daily Macrobid for UTI prophylaxis Anxiety / Depression This is a f ollow up visit. Related symptoms are control - good. There is improvement of initial symptoms. The patient reports functioning as not difficult at all. The patient presents with anxious/fearful thoughts, difficulty concentrating, excessive worry, fatigue and restlessness but denies depressed mood, difficulty falling asleep, difficulty staying asleep, diminished interest or pleasure or thoughts of or suicide. The patient's risk factors include history of depression. The Anxiety / Depression is aggravated by conflict or stress. The Anxiety / Depression is associated with irritability. Chronic Conditions 1) Major depr essive disorder, recurrent, moderate (Chronic. Stable Was away at college Did well. Going back in the fall. )2) Obsessive-compulsive disorder, unspecified type (Chronic.)3) TOSHA (generalized anxiety disorder) (onset 02/17/2024; Chronic. Mild/moderate symptomsDoing better Less anxious Less stuttering. )4) Autistic disorder (Chronic. Has seen [facility] in [place]. Will send us the report. Interested in exploring stimulants. Discussed options. ) LUTS 11/03/2024 urine microscopy 11-25 RBCs/hpf, 11-25 WBCs/hpf11/03/2024 urine culture >100k cfu/ml E. coliAt OV 11/03/2024, pt was prescribed Macrobid x 5 days for therapeutic dose and daily Macrobid for UTI prophylaxisOverall doing better on daily Macrobid. Pt notes when he held daily Macrobid for 2 days recently, he had worsening of discomfort in lower urinary tract. Has since resumed daily Macrobid for the past 2 daysUrinalysis neg for blood / LE / nitritePVR >101 ml---02/07/2024 renal U/S: normal kidneys and bladder LUTS 06/03/2024 urine microscopy 6-10 RBCs/hpf, 11-25 WBCs/hpf, 11-50 squam epith cells/lpf112/10/2023 urine microscopy 6-10 WBCs/hpf06/03/2024 and 10/09/2024 urine cultures >100k cfu/ml E. coli (ace-sensitive)Pt had urine rechecked at PCP more recently because of malodorous urine. Pt was prescribed Augmentin by PCPUrinalysis today trace LE, positive nitriteNo dysuria. Sometimes urinary hesitancy. Urine smell still there per pt report. Pt going back to college in [place] this Saturday---02/07/2024 renal U/S: normal kidneys and bladder provider note 1) right upper q uadrant pain and mass onset 3 weeks agocertain stretching motions aggravate the pain.denies any pain with eating2) foul smelling urinefollowing up with Dr. Encarnacion Chronic Conditions 1) Major depr essive disorder, recurrent, moderate (onset 02/17/2024; Chronic.)2) TOSHA (generalized anxiety disorder) (onset 02/17/2024; Chronic.)3) Obsessive-compulsive disorder, unspecified type (onset 02/17/2024; Chronic.) preventive exam Men's preventive visit. Patient is on a well balanced diet. Relevant history is negative for passive smoke exposure, alcohol use. Additional information: Exercise: calisthenics, cardioDiet: balancedSleep: no issuesSmoking: neverEtOH: never Drugs: none clogged ears (comments) dr broussard pushed wax into rt ear this am with a q tip clogged ears pt reports his R T ear is clogged with wax. Chronic Conditions 1) Autistic d isorder (Chronic.)2) TOSHA (generalized anxiety disorder) (onset 02/17/2024; Chronic.)3) Obsessive-compulsive disorder, unspecified type (onset 02/17/2024; Chronic.)4) Major depressive disorder, recurrent, moderate (onset 02/17/2024; Chronic. Here today with his aunt Struggling with suicidal thoughts. Still denies intention or plan for self harm. More difficulty in managing his expectations and dealing with negative feelings after he decided to withdrawal from his classes at [employer]. He has been looking at residential facilities which may provide more support. Discussed dx of spectrum disorder and registering with [facility] for resources. Reviewed safety plan and options for crisis management as needed) Anxiety / Depression This is a f ollow up visit. Related symptoms are control - poor. There is worsening of previously reported symptoms. The patient presents with anxious/fearful thoughts, depressed mood, difficulty concentrating, difficulty falling asleep, difficulty staying asleep, diminished interest or pleasure, excessive worry, fatigue, restlessness and thoughts of or suicide but denies hallucinations, paranoia, poor judgment or racing thoughts. The patient's risk factors include history of depression. The patient's risk factors exclude history of suicidal attempts. The Anxiety / Depression is aggravated by conflict or stress and lack of sleep. Chronic Conditions 1) Autistic d isorder (Chronic.)2) Obsessive-compulsive disorder, unspecified type (onset 02/17/2024; Chronic.)3) Major depressive disorder, recurrent, moderate (onset 03/10/2024; Chronic. Recent hospitalization. Switched from Abilify to Latuda. Going ok so far. Was suicidal. Still with passive thoughts. No intent or plan Frustrated with his lack of success his first week back to college. Discussed and reinforced concepts of flexibility and frustration management. ) LUTS 01/13/2024 urine m icroscopy 3-5 RBCs/hpf01/13/2024 urine culture mixed flora02/07/2024 renal U/S: normal kidneys and bladderUrine smell varies during the week. Reports needing to strain to get the residual urine out at end of micturition. No gross hematuria. No dysuria. 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 Related symptoms are control - fair. There is improvement of initial symptoms. The patient presents with anxious/fearful thoughts, depressed mood, difficulty falling asleep, difficulty staying asleep, diminished interest or pleasure, excessive worry, fatigue and restlessness but denies difficulty concentrating, hallucinations, paranoia, poor judgment, racing thoughts or thoughts of or suicide. The patient's risk factors include chronic illness and history of depression. The Anxiety / Depression is associated with irritability. Anxiety / Depression This is a f ollow up visit. Related symptoms are control - poor. There is continuation of initial symptoms. The patient reports functioning as very difficult. The patient presents with anxious/fearful thoughts, depressed mood, difficulty concentrating, difficulty falling asleep, difficulty staying asleep, excessive worry, fatigue and restlessness but denies hallucinations, loss of appetite, paranoia, poor judgment, racing thoughts or thoughts of or suicide. The patient's risk factors include chronic illness and history of depression. The Anxiety / Depression is aggravated by conflict or stress and lack of sleep. Chronic Conditions 1) Anxiety di sorder, unspecified (onset 06/05/2017; Chronic.)2) Obsessive-compulsive disorder, unspecified type (onset 02/17/2024; Chronic.)3) TOSHA (generalized anxiety disorder) (onset 02/17/2024; Chronic. seeing therapist regularly. Takes Ativan as needed and its helpful. Feels like hard time rationalizing and utilizing coping skills effectively. Myoclonus still having negative impact on day to day Discussed options. discussed risks and benefits of daily benzodiazepine use. 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 TOSHA and PHQ are low/stable Reports feeling fairly stable in the past few weeks. Meds working well. NO SENO shaking. Ativan use is sparingly for more extreme or preventative symptoms. Going on a trip to [place] by himself next month for a stuttering convention. )2) MDD (major depressive disorder), recurrent episode, moderate (onset 02/17/2024; Chronic.)3) Obsessive-compulsive disorder, unspecified type (onset 02/17/2024; Chronic. Some compulsive thoughtsManagement is fair. )4) Autistic disorder (Chronic. STABLE. ) Anxiety / Depression This is a f ollow up visit. Related symptoms are control - good. There is improvement of initial symptoms. The patient reports functioning as not difficult at all. The patient presents with anxious/fearful thoughts, depressed mood, diminished interest or pleasure, excessive worry and fatigue but denies decreased need for sleep, difficulty concentrating, difficulty falling asleep, difficulty staying asleep, hallucinations, paranoia, poor judgment, racing thoughts, restlessness or thoughts of or suicide. The patient's risk factors include history of depression. The Anxiety / Depression is aggravated by conflict or stress. Chronic Conditions 1) Anxiety di sorder, unspecified (onset 06/05/2017; Chronic.)2) TOSHA (generalized anxiety disorder) (onset 02/17/2024; Chronic. Did not respond well to the buspirone. Saw [facility]. Stopped new medContinued rest. Today feels more stable. )3) MDD (major depressive disorder), recurrent episode, moderate (onset 02/17/2024; Chronic. TOSHA and PHQ are improved.)4) Obsessive-compulsive disorder, unspecified type (onset 02/17/2024; Chronic.)5) Autistic disorder (Chronic.) Anxiety / Depression This is a f ollow up visit. Related symptoms are control - fair. There is continuation of initial symptoms and improvement of initial symptoms. The patient reports functioning as somewhat difficult. The patient presents with anxious/fearful thoughts, depressed mood, excessive worry, fatigue and restlessness but denies paranoia, poor judgment, racing thoughts or thoughts of or suicide. The patient's risk factors include chronic illness and history of depression. The Anxiety / Depression is aggravated by conflict or stress and lack of sleep. Nurse Comments Here for med kajal ck. Symptoms improved since last visit. Some anxiety but managing better. Would like to do Genomind testing. Worried about weight gain r/t meds.does exercise, cardio and weights.Is going to a stuttering conference in April. Some anxiety r/t thisWill be traveling alone. provider note Saw Aimee 03/05w as started on buspirone at that timenotes been having audio hallucinations with the medication at night. believes he may have had one during the day as well, but is uncertain. notes having severe anxiety attacks with SI on another yesterdayreports trigger on Saturday - was trying to use his skills to resist spiraling, however notes he wasn't able to resist. during anxiety attacks notes having very intense body movements. Reports bad experience at ER last time he was there for SI - which led him to not wanting to go to the hospitalHas been hospitalized in the past and feels that they are unable to help him much more than what he is getting now. feeling like I'm two people, Dr. Velazquez an Mr. Thakur notes feels of down are severe intensemood swings from feeling good to down - approx 30 mins of a transition period MRI two weeks ago that came back normal.Currently denies any SI/HIContracts for safety Anxiety / Depression This is a f ollow up visit. Related symptoms are control - poor. There is continuation of initial symptoms. The patient reports functioning as very difficult. The patient presents with anxious/fearful thoughts, depressed mood, difficulty concentrating, difficulty falling asleep, difficulty staying asleep, diminished interest or pleasure, excessive worry and fatigue but denies hallucinations, loss of appetite, poor judgment, racing thoughts, restlessness or thoughts of or suicide. The patient's risk factors include chronic illness and history of depression. The Anxiety / Depression is aggravated by conflict or stress. Chronic Conditions 1) Anxiety di sorder, unspecified (onset 06/05/2017; Chronic.)2) TOSHA (generalized anxiety disorder) (onset 02/17/2024; Chronic. TOSHA and PHQ are moderate. Increased anxiety with online school and conflict with mom. Embarrassed with stutter. Discussed tx options. Anxiety leading to panic and uncontrolled movements. AIMS is negative. )3) MDD (major depressive disorder), recurrent episode, moderate (onset 02/17/2024; Chronic.)4) Obsessive-compulsive disorder, unspecified type (onset 02/17/2024; Chronic.) Anxiety / Depression This is a f ollow up visit. Related symptoms are control - fair. The patient reports functioning as somewhat difficult. The patient presents with anxious/fearful thoughts, compulsive thoughts, depressed mood, difficulty falling asleep, difficulty staying asleep, diminished interest or pleasure, excessive worry, restlessness and thoughts of or suicide but denies difficulty concentrating, fatigue, hallucinations or racing thoughts. The Anxiety / Depression is aggravated by conflict or stress. The Anxiety / Depression is associated with trembling. Chronic Conditions 1) Anxiety di sorder, unspecified (Chronic.)3) MDD (major depressive disorder), recurrent episode, moderate (onset 02/17/2024; Chronic. Abilify. )4) Obsessive-compulsive disorder, unspecified type (onset 02/17/2024; Chronic. Anafranil TOSHA and PHQ are stable. )5) TOSHA (generalized anxiety disorder) (onset 02/17/2024; Chronic. Effexor Anafranil. involuntary muscle movements are worse with anxiety.)6) Autistic disorder (Chronic.) note Pt here for acut e anxiety/depression. Current Meds: aripiprazole (abilify) 10mg daily, clomipramine (anafranil) 75mg daily, divalproex depakote) ER 750mg daily in evening, and effexor XR 75mg once daily)Had severe anxiety attack yesterday per pt. Assoc with tremors and violent body movements . Called [phone] at that time. -Want to determine next steps to ensure safety and maintain stable mood.Yesterday completely spiraled with my depression and anxiety Associated with body spasm and violent jerking.Currently on clomipramine (anafranil) 100mg in AM and 75mg in PM) [place] like dyskinesia was present before anafranil (started in 2022 and tremors present in 2021) Has been hospitalized at [facility] for suicidal ideation and tremors. Has not found solution to movements to make this stop. Had f/u with neurologist but was unrevealing per pt. Had some suicidal ideations yesterday. Was scared by the thought of this, but no real intent. No plan. Called [phone] at that time. No history of SI or HI per pt.Started depakote recently, but again dyskinesia present prior to taking this medication.Has been on abilify for a while .Was previously on Rexulti and found this was a god alternative to the abilify. LUTS Please refer to my prior OV notes for his UTI history06/16/2020 urine culture >100k cfu/ml E. coli06/23/2020 urine culture no growthMalodorous urine x 1 year. No dysuriaReports BMs 3x/dayUrinalysis neg for blood / LE / nitritePVR 0 ml provider note [facility] admit 2C fro m 12/14-12/22Medication dose increase on Effexor and DepakoteWas having suicidal and homicidal ideations towards his father (who he doesn't live with)Outreach numbers provided at [facility] since discharge, ideations have been better, but did have passive intrusive thoughts over the weekend that disappeared yesterday. Reports that when he starts to spiral he notices he gets the suicidal and homicidal thoughts. He notes that the homicidal thoughts are newer, and more anger towards his dad. He is able to contract for safety when these thoughts occur. Has an appt with Marlyn for transition followup. Wanted to be seen sooner 2/2 most recent thoughts and hospital dc. Has a counselling appt today. When in the hospital, was trying to get approved for Caplyta but insurance did not approve. Curious about gene sequencing for medication. Seeing neurologist for involuntary movements of the arms - has MRI brain order that needs to be scheduled Nurse Comments annual physical, fbw preventive exam Men's preventive visit. Patient Health Questionnaire (PHQ-2) is positive. Patient is on a well balanced diet. Relevant history is negative for tobacco use, passive smoke exposure, alcohol use. Anxiety / Depression The patient reports functioning as very difficult. The patient presents with depressed mood, difficulty falling asleep, diminished interest or pleasure and fatigue. 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 comments noticed dried bl ood on umbilicus yesterdayno pain, no itching, some odor preventive exam Men's preventive visit. Patient is on a well balanced diet. Relevant history is negative for passive smoke exposure, alcohol use. Chronic Conditions 1) Anxiety di sorder, unspecified (onset 06/05/2017; Chronic. doing better on abilify and effexor - sees psych Dr. Sandy Hardy in [place]) lesions C/o for warts on hands and knees. they blistered after last LN2 treatment and they are slightly smaller but they are not totally gone Used LN2 last OV. No new ones . No interval health changes since last visit. No new medications. Feels well. No other skin symptoms. Nurse Comments well visitPt is not fasting Pt has no concerns at this time lesions C/o for warts on hands and knees. Patient states a lot of improvement. Used LN2 last OV. Pt states they are feeling well Nurse Comments pt has water in the ears since last Saturday, has hearing trouble, tried OTC drops. lesions C/o for warts on hands and knees. Some improvement. Used cryo last OV. Pt states they are feeling well No cough, cold, sore throat, no travel... And they have not been around anyone who has been sick or ill. lesions C/o for warts on hands and knees. Some improvement. Used cryo last OV. Pt states they are feeling well No cough, cold, sore throat, no travel... And they have not been around anyone who has been sick or ill. wart(s) The Patient pres ents with wart(s). The problem is mild and worsened. Area(s) affected include: both hands and both knees. The problem has not been managed with OTC products. Associated symptoms include spreading lesions. Pertinent negatives include painful lesions. Nurse Comments waqar lewis s tates that somebody will be driving home- left after vaccine was given comments sick symptoms-on going since this morning-chills, subjective fevers, fatigue-no coughing, no diarrhea, no change in taste or smell, no shortness of breath-no known sick contacts, no recent travel history-temp of 101 with ear probe-took motrin earlier today-virtual classes, freshman at [employer], lives with mom at home Flu-like symptoms The symptoms b roxana 3 days ago. pt reports he woke up with chills , nausea , fatigue , headaches , fever @ 11 AM 101 he took Motrin UTI (comments) Urine culture 06/16/2020 came back with ace-sensitive >100k cfu/ml E. coli. I had recently empirically prescribed him Bactrim DS x 1 week from the 06/16/2020 office visit. Pt notes today that his dysuria and associated UTI symptoms have cleared up on Bactrim DS.KUB 06/23/2020 without renal, ureteral, or bladder calculi. He does have a fair amount of stool burden within rectum, sigmoid colon, and left colon on my review of the imaging.LIANET 06/23/2020 with normal appearing kidneys. PVR documented at radiology during LIANET was 92 ml. UTI UTI (comments) 1 week history o f dysuria, urinary urgency, and rare gross hematuria. The dysuria has improved but urine remains malodorous. Urine specimen today is frothy and cloudy. No fevers or chills. Not on scheduled stool softeners for his constipation UTI The onset was corona dden. The severity of the problem is moderate. The problem is improving. The symptoms are intermittent. Pertinent history does not include being over 50, diabetes or alcohol consumption. Associated symptoms include dysuria and hematuria. Pertinent negatives include constipation, penile discharge, urinary frequency and urinary retention. Well visit He continues to see a psychiatrist and therapist. He completed an IOP program at [facility] in September. He feels much better. routine exam Patient is being seen for yearly routine eye exam. Patient notes that vision is stable since last visit. Well child He sees a psychi atrist and therapist. He has been having trouble lately. His medications are being adjusted. UTI (comments) Last seen 018 for his history of UTI and constipation-associated dysuria. He has prior KUB 05/2018 with radiographic evidence of constipation. From the last office visit, his dysuria has improved with management of his constipation with stool softeners and treatment of his UTI with abx. Urine culture from that visit was no growth.He is here today because of episode of dysuria yesterday that persisted for 2 hours. He also notes worsening constipation and had trouble with BM yesterday. Today, the dysuria has improved. He came here out of precaution before his urinary symptoms get worse. Urinalysis today was without sign of blood or infection. He is currently taking stool softeners only when the constipation gets bad UTI Pertinent histor y does not include being over 50, diabetes or alcohol consumption. Pertinent negatives include dysuria, urinary frequency and urinary retention. Dysuria Dysuria (comments) KUB 05/26/2018 notable for constipation. Was advised to take Miralax x 1 month. He took Miralax x 1 day and other stool softeners PRN and has found that this has helped with dysuriaUrine culture 05/26/2018 with 25-50k cfu/ml Enterococcus. Was prescribed Keflex x 7 days and took it. This also helped with his dysuria. Dysuria currently residual and much improved from before Dysuria (comments) Since initial visit 05/13/2018, he had noticed burning with micturition and urinary urgency about 2 days ago. It has improved today. Denies gross hematuria. Urinalysis today with trace protein. He is not sexually active.Orchalgia improved at this time with tighter fitting underwear Dysuria Onset: sudden. S everity level is moderate. Duration: 24-72 hours. There is no radiation. Location is penis. The patient describes it as burning. It occurs intermittently. The problem is worse. Denies aggravating factors. Denies relieving factors. SOB Chest Pain Visit Note Patient is a 18- year-old male with a past medical history of anxiety disorder and pervasive development disorder who presents to us for new patient evaluation for episodes of atypical chest pain and shortness of breath. The patient reports that he can have sudden onset of chest pain which is not related to exertion. There is no clear alleviating or aggravating factors. There is no associated symptoms of diaphoresis, lightheadedness, dizziness, nausea etc. Unrelated to the chest pain the patient has occasional episodes of shortness of breath. Again they can occur at rest while displaying an indoor game or some other activity at rest. They are concerned about a cardiac etiology. He has no prior cardiac history. Cardiovascular Review He has had no chest discomfort suggestive of ischemia. The patient denies orthopnea, PND, PRUITT, or edema. Mr. Hardwcik has not had palpitations, syncope or near syncope. He denies claudication. There is no discoloration or ulceration of the lower extremities. He has had no TIA or stroke-like symptoms. The patient has no symptoms attributable to valvular heart disease. testicular pain (comments) Inter mittent episodes of bilateral testicular pain that last for 20 min and resolve on their own. Pt notes this happens more often than his dysuria. No surgical history. He is uncircumcised. Wears boxer briefs. Denies constipation (reports 5x BMs per wk). Urinalysis today with pH 7.5 but otherwise without signs of infection. dysuria Onset: sudden. S everity level is moderate. Duration: 3-6 months. There is no radiation. Location is penis. The patient describes it as burning. It occurs rarely. The problem is with no change. Denies aggravating factors. Denies relieving factors. testicular pain The onset was corona dden. Duration of symptoms is 15-30 minutes. Severity level is moderate. Symptoms occur Intermittently. The pain is located near the left testicle and right testicle. There is no mass located. The pain does not radiate. The patient describes it as achy. The problem is with no change. Symptoms occured following no memorable event. Symptoms are aggravated by exercise. Relieving factors include rest. The patient reports no pertinent history. Associated symptoms include hematuria. Pertinent negatives include dyspnea, headache and weight loss. Well child He was seen by c ardiology for chest pain. All testing was negative including a Holter monitor.He sees a psychiatrist and therapist. He has been having trouble lately. His medications are being adjusted. Rash (comments) 17 year old male here with mom for rash on face.He was pulling lili the other day- may have come in contact with poison nikolas.Rash is very itchy. Rash dysuria (comments) 17 yr old mal e here with mom for evaluation of dysuria x 2 days. seems to be improving but still present.c/o hematuria 2 days ago which has resolved.c/o frequency and urgency.he wet the bed 2 nights ago which is not typical for him.he was in the office in 2009 with UTI sx. urine culture grew Enterococcus 10,000-25,000 cfu dysuria chest pain(comments) C/O intermi ttent palpitations lasting ? minutes since last week. No sob, lightheadeness, fainting. no color changes. Gets nauseaous at the same time. ? stress-related (is anxious about school). Has generalized anxiety, is on Cymbalta. Drinks 2 cans of Coke per day. Nurse Comments Well Up To Date chest pain Well child Well child(comments) 17 yr old m demarcus here with mom for wcc. Doing well. No concerns.sees psychiatrist, Dr. Navarrete for anxiety. doing well on cymbalta Follow up and Left hand pain Ons et 1 month. Severity level is 0/10. It occurs rarely and is improving. Location: left and Hand. The pain radiates to the Left and into hand. The pain is aggravated by Nothing. The pain is relieved by Brace/splint. Injured mariela(comments) jammped mariela L hand yesterday catching ball was pretty swollen - better today hard to move tip Injured pinklorie Well child Well child(comments) Luz Maria velásquez polly Flonase - gets bloody noses. School- did great.- [employer] [facility] having anxiety and no longer havingit and doing well. - was studdering and no longer - has been on for 1 year. Rash Onset 3 days ago . Severity is moderate. The problem is worse. Additional information: denies any new exposures. no respiartory involvment. sore throat(comments) St x 3 day s fever x 3 days tmax 103 Has CLARK as well no congestion or cough some difficulty swallowing no sick contacts sore throat Well child He tells mom javid t he wants to see a psychiatrist for anxiety. There is a strong family history of anxiety and depression. Nurse Comments Mom states Amoxi cillin not working and still coughing and congested. Follow Up of congestion Pain sca le: 6. Nurse Comments MDI training w/d emo of RN-C and of patient in return showing proficient usage. s/s discussed. look and sound alike discussed. indicators of > 48 hours of cough and/or wheeze w/o improvement-parent is to call us for reevaluation congestion Onset: 2 Weeks a go. Pain scale: 6/10. Symptoms are relieved by antihistamines and decongestants. Associated symptoms include cough (cough is productive), nasal congestion, otalgia (left), pharyngitis, rhinitis, wheezing and epistaxis. Pertinent negatives include decreased appetite, fever and headache. Nurse Comments flu vaccine with out incident Well child He was seen by Polly Alicia for vision therapy. He received 4 sessions, and now he is improved with his convergene disorder. Functional Status Date Functional Assessmen t No Information Instructions Date Instruction Additional Infor anupam Trial Focalin. Monit or for side effects and improvements. Follow up with your psychiatrist at school. 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 Continue working with your therapist and utilizing coping skills as discussed. PT VU Related to Major depressive disorder, recurrent, moderate Almond Concerta 18mg ER One daily in the AM. Monitor for side effects and improvements. Progressive muscle relaxation. 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 Pt to discuss with Psychiatry to see if anxiety may be playing a role with his increased bladder neck tone- shake penis after urination to limit the degree of post-void dribble- continue daily nitrofurantoin for UTI prophylaxis- next office visit in Sep 2025 (when he is back in town for holidays) with urinalysis and PVR Related to Lower urinary tract symptoms (LUTS) Physical therapy as discussedReferral generated. 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 Treatment options including non-steroidal anti-inflammatory medications, exercises, steroid injections, MRI scan and ,as a last resort, shoulder arthroscopy were discussed. They would like to proceed with __.The patient will gradually increase activity level as tolerated. I will see them back as necessary.F/u in 6 weeks.Heat and/or ice treatments as beneficial. OTC NSAIDs (ie . Aleve) and Tylenol as tolerated and if approved by their primary care physician. They will pursue a self directed exercise program. The patient will notify me in 2-3 weeks if not improved.Continue Outpatient Physical TherapyDiscussed with the patient the potential risks and benefits of NSAID therapy, including but not limited to e.g., gastrointestinal side effects, increased risk of cardiovascular events, potential for drug interactions. Patient understands the risks and benefits and agrees to proceed with the prescribed medication. Related to Impingement syndrome of right shoulder Lifestyle education regarding di et Related to Body mass index (BMI) 32.0-32.9, adult called in muscle rel axant + oxycodone (use very sparingly).rec scheduled PT as ordered by ortho.continue nsaid.avoid exacerbating activities.paresthesia in hand should self-resolve, but call if no improvement or worsening. Related to Pain, joint, shoulder, right The nature of rotato r cuff pathology was discussed in detail. Treatment options including non-steroidal anti-inflammatory medications, exercises, steroid injections, MRI scan and ,as a last resort, shoulder arthroscopy were discussed. They would like to proceed with __.The patient will gradually increase activity level as tolerated. I will see them back as necessary.F/u in 6 weeks.Heat and/or ice treatments as beneficial. OTC NSAIDs (ie . Aleve) and Tylenol as tolerated and if approved by their primary care physician. They will pursue a self directed exercise program. The patient will notify me in 2-3 weeks if not improved.Initiate outpatient Physical Therapy.The patient will continue to avoid vigorous overhead activities and lifting greater than 5 lbs ( nothing heavier than a coffee cup ) with the affected extremityDiscussed with the patient the potential risks and benefits of NSAID therapy, including but not limited to e.g., gastrointestinal side effects, increased risk of cardiovascular events, potential for drug interactions. Patient understands the risks and benefits and agrees to proceed with the prescribed medication.Prescription provided for formal PT.Subacromial injection performed today involving injection of corticosteroid medication (to reduce inflammation) and a local anesthetic (to provide pain relief) into the subacromial space of the shoulder. Related to Impingement syndrome of right shoulder Lifestyle education regarding di et Related to Body mass index (BMI) 33.0-33.9, adult Continue paroxetine, Depakote, Anafranil, Latuda as prescribed. Continue working with your therapist and utilizing coping skills as discussed. PT VU Related to Major depressive disorder, recurrent, moderate Almond Qkendall as di scussedstart with 100mg once daily in the morning for 2 weeks. If not improvements can increase to 200mg once daily. Monitor for side effects and improvements. Follow up in 2-4 weeks. Related to Attention deficit hyperactivity disorder (ADHD), combined type Preliminary xray jose flowers does not show a fracture or dislocation. The radiologist will do an official reading and we will call you if there are any changes. Rest and elevate the affected part and apply ice 20 minutes at a time several times per day. Take ibuprofen or naproxen as needed for pain. Follow up with orthopedics for continued pain.We examined and treated you today on an urgent care basis only. This was not a substitute for, or an effort to provide on-going care. In most cases, you should let your doctor check you again. If you do not have a regular doctor, we can recommend one to you, or you can call the Physician Referral Service at . Tell your doctor about this visit and any new or lasting problems. We cannot recognize and treat all injuries or illnesses in one urgent care visit. If you had special tests, such as X-Rays, we will review them again in 24 hours. We will call you if there are any new suggestions. Related to Acute pain of right shoulder - cystoscopy notable for normal urethra, normal sized prostate (but with tight bladder neck appearance), and mildly trabeculated bladder containing moderate whitish debris. No bladder tumors. No bowel/bladder fistula- restart daily nitrofurantoin for UTI prophylaxis- start alfuzosin to relax bladder neck to see if that helps with urine stream and emptying bladder better. Benefits/risks discussed. Prescription sent to local pharmacy- next office visit in 4 to 6 weeks with urinalysis and PVR Related to Urinary tract infection, site not specified Send the report as d eanedManuelllow up with [facility] Follow up with me as needed. PT VU. Related to Autistic disorder Continue medications as prescribed. Can consider Topamax for antipsychotic weight gain. Can consider Vyvanse Related to Major depressive disorder, recurrent, moderate L-methylfolate and methylcobalam in Related to MTHFR gene mutation - continue daily Mac robid- send urine for microscopy and culture to recheck for resistant bacteria in urine- schedule office cystoscopy March 2025 to rule out urethral stricture disease and/or bladder-bowel fistula Related to Lower urinary tract symptoms (LUTS) - send urine for katherine roscopy and culture to check for any antibiotic resistances- Macrobid x 5 days prescribed for therapeutic dose. Daily Macrobid prescribed for him to take after completion of therapeutic dose to suppress the E. coli count in his urine- I advised him that it is not safe to do add-on office cystoscopy today because I do not want to risk making him sick with the bacteria still in his urine- pt will find a urologist in [place] for further eval while there (e.g., cystoscopy) Related to Lower urinary tract symptoms (LUTS) - per history Related to Abnor mal urine odor - may be from bacteriuria Relate d to Microscopic hematuria Please continue to h ydrate and eat well.We discussed different causes of your abdominal pain.There would be many things causing it that may require further imaging or work up. Today we leon lab work.Please journal the foods you are eating and what brings on the abdominal discomfort.Call me if you experience any of the new symptoms we discussed.US abdomen Related to RUQ pain Urine sample today. Related to M alodorous urine You are doing a grea t job with your health!Continue your regular exercise (150 minutes a week of cardiovascular exercise - running or jogging or walking, swimming, etc - is recommended).Try to eat as much fruits and vegetables as possible. Eat fish at least once a week.You are up to date on your flu, shingles, pnuemonia and tetanus vaccinesI refilled your medicationI checked fasting blood work today. It can take up to a week to come back. If normal, I will send a letter. If abnormal, I or my nurse will call. I may ask you to come back for an office visit. Related to General medical examination Wax was removed toda y. May consider debrox drops in the future to help soften wax. Follow up if new concerns develop.. We examined and treated you today on an urgent care basis only. This was not a substitute for, or an effort to provide on-going care. In most cases, you should let your doctor check you again. If you do not have a regular doctor, we can recommend one to you, or you can call the Physician Referral Service at . Tell your doctor about this visit and any new or lasting problems. We cannot recognize and treat all injuries or illnesses in one urgent care visit. If you had special tests, such as X-Rays, we will review them again in 24 hours. We will call you if there are any new suggestions. Related to Impacted cerumen, bilateral Follow safety plan. Increase the Latuda to 60mg once daily. with 350 calories. Complete form for registration with D[employer]. Monitor closely for any worsening. Follow up with crisis or the ER as needed as discussedFollow up here as discussed or sooner if neededPT and Aunt VU. Related to Major depressive disorder, recurrent, moderate Continue working wit h concepts discussed today. Call the school's office of disability to discuss a plan going forward. Stay with your aunt and uncle for a few days which is a more supportive and calm environment. Follow up in 2 weeks as discussedFollow up with crisis for any worsening suicidality. PT VU Has current crisis contact info, safety plan Related to Major depressive disorder, recurrent, moderate - pt advised to keep track of what foods he eat every day and see whether certain types of food are associated with malodorous urine Related to Lower urinary tract symptoms (LUTS) - urinalysis is abno rmal today. Send urine microscopy and culture. May need to consider cystoscopy in the future Related to Microscopic hematuria Continue clonazepam as prescribe d. 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 Follow up as scheduled. Related to Obsessive-compulsive disorder, unspecified type Letter for college a ccommodations generated. Related to Autistic disorder Continue medications and therapy. Follow up as scheduled. Related to Obsessive-compulsive disorder, unspecified type Trial clonazepam as discussedMonitor for improvements Follow up in a few weeks for reevaluation. 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 Follow up with your therapist as scheduled. Related to TOSHA (generalized anxiety disorder) Continue medications and therapy. Follow up as scheduled. Related to Obsessive-compulsive disorder, unspecified type Have fun on your tri p!Continue all of your medications as prescribed. and remember to take them all with you as discussed. Continue working with your therapist as scheduled Follow up in one month for reevaluation as discussedPT VU. Related to TOSHA (generalized anxiety disorder) Checking [employer] as discussedThey will reach out to confirm processing. Will discuss results at follow up if available. PT VU. Related to Obsessive-compulsive disorder, unspecified type Continue your medica tions as prescribed. Continue to monitor for any worsening. Follow up as scheduled or sooner if neededPT VU Related to TOSHA (generalized anxiety disorder) Thank you for talkin g this out with me.It takes a lot to open up about this type of thing.We spoke about medication and other treatments optionsWe also have a supervisory it specialist here Marlyn Mata APN who is a great asset to help with this discussion.Continue to practice mindfulness and exercise.Try to journal and focus on triggers and what makes your symptoms worse this will be helpful for your next visit. If you want to look for a therapist this could be helpful.Call me as needed.Discontinue buspirone until you see Marlyn in 1 week.Ativan as needed for anxiety attacks. Related to Anxiety disorder, unspecified Trial buspirone 5mg three times per day. Monitor for side effects and improvements. Follow up as scheduled or sooner if neededPT VU. Related to TOSHA (generalized anxiety disorder) Since other symptoms are stable. Can trial Ingrezza. Monitor for symptoms and side effects as discussed. Follow up as scheduled or sooner if needed. PT VU> Related to Adverse effect of unspecified antipsychotics and neuroleptics, initial encounter Suspect that your tr emors are due to a condition known as tardive dyskinesia. -This is a drug induced movement disorder which presents due to a delayed exposure to chronic use of dopamine receptor blocking agents (like aripiprazole-abilify). -Would need to have slow taper of this medication and will need change of medication to alternative antipsychotic (as in clozapine). This should be done by a trained psychiatrist. Can also consider adding alternative medications such as Ingrezza (valbenazine) though this medication may take several weeks to work. Recommending evaluation in ED for acute medication management. Alerted psychiatry and ED physician team. 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 This can come from diet, medications, bacteriuria, etc. Pt advised to check with Behavioral Health to see whether the metabolic byproducts of his psych meds may be contributing to his urine smell Related to Abnormal urine odor - send urine for rep eat microscopy and culture to see if there is a particular bacteria which may be contributing to the malodorous urine Related to History of UTI I do not want to samantha nge your Effexor medication today as this was just changed the other week by 2C. The medication could take up to 4 weeks to notice improvement following a dose change. I highly recommend followup with Marlyn as scheduled on 01/09. At that time she can assess the effectiveness of the medication that you are on. I would discuss with her at that time whether GeneSight or gene sequencing for medication is appropriate before we dive in to this. If any intrusive suicidal or homicidal ideations occur between now and your appt with counselor or Marlyn, please utilize the resources provided to you by the [facility] dept and/or call 911 or go directly to the ER for further evaluation and treatment. Related to Anxiety disorder, unspecified Continue care with y our program and your psychiatrist they are managing her medication and care Related to Anxiety disorder, unspecified I would like to see a urologist due to your frequent urinary tract infections names attached Related to Frequent UTI Please discuss your symptoms with a neurologist then they can talk to your psychiatrist and come to a conclusion together Related to Motor tic disorder Fasting blood work today Related to General medical examination try compound W Band- Aids for few weeks if it continues to help keep using them otherwise may need to see a rheostat assembler Related to Common wart Fasting blood work t nella try to exercise daily for 40-45 minutes stay on a low-fat diet Related to Hyperlipidemia, mixed I will send you for an echocardiogram to check that murmur Related to Cardiac murmur will cover with an a ntibiotic given the erythema and odor Related to Umbilical bleeding recommend dental elsy ry 6 monthsHPV # 1 givenstressed importance of cardiovascular exercise 150 minutes/week to help with heart health as well as mental healtdiscussed age appropriate anticipatory guidancecontinue current medications per psychiatrycheck fasting labs including psychiatry labssee care planrecommend yearly well visit Related to Body mass index [BMI] 30.0-30.9, adult Healthy Lifestyle Care Plan ln2 for destruction Related to O ther viral warts dental exam twice a year.eye exam annually.immunizations up to date.exercise at least 30 minutes, 5 days a week -- this significantly reduces risk of cardiovascular disease.eat more fruits and vegetables -- avoid pre-made, pre-cooked, pre-packaged foods.minimize alcohol intake. Related to General medical examination Lifestyle education regarding di et Related to Body mass index (BMI) pediatric, greater than or equal to 95th percentile for age LN2 for destruction Related to O ther viral warts Sent drops to [facility]. Pt v/u will f/u PRN Related to Acute swimmer's ear of right side LN2 for destruction Related to O ther viral warts LN2 for destruction Related to O ther viral warts increase emollientsm ometasone cream twice dialy for two weeks Related to Irritant hand dermatitis LN2 for destruction Related to O ther viral warts Will test for COVID based on symptomsKeep hydrated, take tylenol as neededFollow CDC guidelines, handout providedIf worsening or no improvement in symptoms, follow up with PCP. We examined and treated you today on an urgent care basis only. This was not a substitute for, or an effort to provide on-going care. In most cases, you should let your doctor check you again. If you do not have a regular doctor, we can recommend one to you, or you can call the Physician Referral Service at . Tell your doctor about this visit and any new or lasting problems. We cannot recognize and treat all injuries or illnesses in one urgent care visit. If you had special tests, such as X-Rays, we will review them again in 24 hours. We will call you if there are any new suggestions. Related to Viral upper respiratory tract infection - see above Related to Const ipation in male - I reviewed the KUB and LIANET findings with the pt today- send repeat urine microscopy and culture to document clearance of E. coli UTI- I recommend pharmacologic management of his chronic constipation (risk factors for UTIs) with daily dose of Miralax for at least the next 3 months. If he has breakthrough UTIs even with Miralax therapy, he understood we may consider office cystoscopy as next step- next office visit in 3 months with Uroflow and PVR Related to Bacterial UTI - pt also advised to restart daily stool softeners Related to Constipation in male - see above- pt advi sed to increase hydration and to do scheduled voids Related to Dysuria - he likely has anot her episode of UTI. I have empirically started him on Bactrim DS 1 tab PO BID x 1 week. E-prescription sent- send urine to lab for microscopy and culture- since this is not the first time he has UTI, I have ordered KUB and renal U/S to exclude nephrolithiasis, hydronephrosis, and severe constipation as sources for his UTIs- follow up in 10 - 14 days for repeat urine specimen check and review imaging results Related to Bacterial UTI Discussed feeding, b owel and bladder function, sleep, development, safety, immunizations. Anticipatory guidance and age appropriate handout packet given. All questions answered. Next visit in one year. Related to General medical examination Routine eye exam don e today. Discussed new Rx with patient. New MRX given to patient today. Patient advised to follow up as scheduled. Dr Rodrigues refraction: OD -6.00 +1.75 x 095, OS -6.75 +0.25 x 180, OU 6/6 Related to Encounter for examination of eyes and vision with abnormal findings Discussed feeding, b owel and bladder function, sleep, development, safety, immunizations. Anticipatory guidance and age appropriate handout packet given. All questions answered. Next visit in one year. Related to Encntr for routine child health exam w/o abnormal findings - I think his chroni c constipation is severe enough to put extrinisic pressure on his bladder and triggering his dysuria. Nonetheless, we will send urine out for culture to rule out UTI- I advised him to go back on Miralax 1 capful PO daily and take this OTC med for a minimum of 3 months. This is a regimen our pediatric urology colleagues commonly do for kids/teenagers with dysuria and frequent UTI episodes that we attribute to chronic constipation- I told him that if the stool becomes too soft after using Miralax, he is allowed to titrate down on the Miralax dose (but he should still be using it regularly rather than PRN status)- pt will keep his December 2018 appt for routine urinary symptom check visit Related to Constipation in male - this is likely fro m his constipation and recent UTI- dysuria improved following stool softeners and abx- he understood that for young patients, severe constipation does raise risk of future UTIs- next office visit in 6 months to reassess his LUTS. He understood that if his urinary symptoms have continued to improve by then, I am okay with him calling us to cancel the appt Related to Dysuria - urinalysis today w ithout signs of UTI- urine culture to be sent today to see whether the Enterococcus has cleared from his urinary tract Related to Bacterial UTI - he will stay hydra renay and take stool softeners Related to Constipation in male - send urine culture to exclude UTI- to exclude urolithiasis and constipation as possible etiologies at this age, we will have him go to hospital radiology to get KUB today- follow up plans to be determined based on KUB and urine culture results Related to Dysuria Lifestyle education regarding di et Related to Body mass index (BMI) pediatric, 5th percentile to less than 85th percentile for age - advised him to sta y hydrated to keep urine dilute and less alkaline- also advised him to make scheduled daytime voids (q 2 hr), sitting down on toilet to void, and avoid postponing or straining to void- if no improvement in his urinary symptoms after two months, I advised him to contact our office to schedule follow up appointment Related to Dysuria - likely related to inadequate scrotal support from using boxer briefs. His testicles hang very low for his age from prolonged pulling by gravity. With the testicles hanging as low as his, sometimes young adults can have MSK strain of the cremasteric muscles from physical activity + gravity. I advised him to wear regular briefs for better scrotal support to minimize further gravity pulling on the testicles. Related to Orchalgia Discussed feeding, b owel and bladder function, sleep, development, safety, immunizations. Anticipatory guidance and age appropriate handout packet given. All questions answered. Next visit in one year. Also discussed with mom the opportunity to obtain pharmacogenetic testing should the psychiatrist continue to have trouble finding appropriate medication for him. Related to Encntr for routine child health exam w/o abnormal findings Mallet splint given. 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 See psychiatrist Dr. Navarrete. No longer having tics as well and doing great in school. Plan on trying out for sports. Related to Anxiety Anticipatory Guidanc eThe following items were discussed today: hobbies/sports/activities encouragement and sex education/safe sex/STDs/ control.DietThe following items were discussed today: balanced diet.SafetyThe following items were discussed today: bike/skateboard safety, drowning and limit sun exposure: use of sunscreen. Related to Encntr for routine child health exam w/o abnormal findings We examined and fay renay you today on an urgent care basis only. This was not a substitute for, or an effort to provide on-going care. In most cases, you should let your doctor check you again. If you do not have a regular doctor, we can recommend one to you, or you can call the Physician Referral Service at . Tell your doctor about this visit and any new or lasting problems. We cannot recognize and treat all injuries or illnesses in one urgent care visit. If you had special tests, such as X-Rays, we will review them again in 24 hours. We will call you if there are any new suggestions.nonprescrition antihistamine like zyrtec, claritin or ad. rx as prescribed Related to Contact dermatitis, unspecified contact dermatitis type, unspecified trigger Orthopedic consult ordered. Rela renay to Scoliosis Discussed feeding, b owel and bladder function, sleep, development, safety, immunizations. Anticipatory guidance and age appropriate handout packet given. All questions answered. Next visit in one year. I asked mom to call her insurance company to find a list of participating psychiatrists to help with his anxiety, and I will cross reference that list with our behavior health resource list. Related to Encounter for routine child health exam w abnormal findings Discontinue Augmenti n. Start doxycycline as directed. Return to office if symptoms persist or worsen. Related to Acute sinusitis Continue albuterol until cough s ubsides. Related to Acute bronchitis Use albuterol as dir ected until cough subsides. Education on how to use MDI demonstrated. Related to Acute bronchitis Take antibiotics as directed. Using Flovent may be helpful. Related to Acute sinusitis Discussed feeding, b owel and bladder function, sleep, development, safety, immunizations. Anticipatory guidance and age appropriate handout packet given. All questions answered. Next visit in one year. Related to Routine or child health check Assessments Type Assessment Date No Information Patient Care Teams Name Effective Dates (start - stop) Status Members No Information
--- OUTSIDE RECORDS SUMMARY | 2025-07-07 15:51 | XMS_ITS | Encounter Summary ---
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 M/uL [facility] HGB 14.8 13.5 - 17.5 g/dL [facility] HCT 44.8 41.0 - 53.0 % [facility] PLT 235 150 - 450 K/uL [facility] MCV 90.3 80.0 - 100.0 [facility] MCH 29.8 27.0 - 31.0 pg [facility] MCHC 33.0 32.0 - 36.0 g/dL [facility] RDW 12.1 11.5 - 14.5 % [facility] MPV 10.5 8.4 - 12.0 [facility] NRBC 0.00 0.00 /100 WBCs [facility] ABSOLUTE NRBC 0.00 0.00 K/uL [facility] DIFF METHOD Auto [facility] NEUTS 56.8 48.0 - 76.0 % [facility] LYMPHS 29.4 18.0 - 41.0 % [facility] MONOS 9.3 4.0 - 11.0 % [facility] EOS 3.3 0.0 - 5.0 % [facility] BASOS 0.5 0.0 - 1.5 % [facility] Granulocytes, immature (%) 0.7 0.0 - 0.9 % [facility] ABSOLUTE NEUTS 4.27 1.92 - 7.60 K/uL [facility] ABSOLUTE LYMPHS 2.21 0.72 - 4.10 K/uL [facility] ABSOLUTE MONOS 0.70 0.16 - 1.10 K/uL [facility] ABSOLUTE EOS 0.25 0.00 - 0.50 K/uL [facility] ABSOLUTE BASOS 0.04 0.00 - 0.15 K/uL [facility] Granulocytes, immature 0.05 0.00 - 0.09 K/uL [facility] Blood 07/07/2025 4:26 PM EDT 07/07/2025 4:28 PM EDT us Caty Milan MD LAB BLOOD ORDERABLES Hailey l Result [address] [address] * ECG 12-LEAD (07/07/2025 3:49 PM EDT) Ventricular Rate EKG/MIN 115 BPM [facility] Atrial Rate 115 BPM [facility] NM Interval 142 ms [facility] QRS Duration 86 ms [facility] QT Interval 328 ms [facility] QTC Interval 453 ms [facility] P [place] 67 degrees [facility] R Wave [place] 60 degrees [facility] T Wave [place] 70 degrees [facility] 07/07/2025 3:49 PM EDT 07/08/2025 8:16 AM EDT Narrative [facility] - 07/08/2025 8:17 AM EDT Sinus tachycardia Nonspecific T wave abnormality Abnormal ECG No previous ECGs available Confirmed by Tito Pacheco ([id number]) on 07/08/2025 8:16:54 AM us Bernardan Fadia Milan MD ECG ORDERABLES Final Res ult [facility] documented in this encounter Visit Diagnoses Diagnosis Suicidal ideation- Primary Suicidal ideation Depression, unspecified depression type documented in this encounter Admitting Diagnoses Diagnosis Suicidal ideation documented in this encounter Care Teams Booth Cashier Relationship Specialty Start Date End Date Pcp, Unknown PCP - General 07/07/25 documented as of this encounter Additional Source Comments The information contained in this document represents components of the legal health record. It is not the complete legal health record.[facility]
[2025-07-08 15:50] VITALS: BMI 33.5
[2025-07-08 16:02] VITALS: BP 118/72; PULSE 100; RESP 16; TEMP 36.2; O2SAT 100
--- OUTSIDE RECORDS SUMMARY | 2025-07-08 18:37 | XMS_ITS | Clinical Summary ---
Author Organization [facility] Address [address] [place], [place] [id number] Phone Care Team Providers Care Bio Medical Technician Name Role Phone Pcp, Unknown Primary Care Provider Unavailabl e Allergies No known active allergies Medications hydrOXYzine (ATARAX) 50 MG tablet Take 50 mg by mouth 3 (three) times a day as needed for anxiety. Active gabapentin (NEURONTIN) 300 MG capsule Take 300 mg by mouth 3 (three) times a day as needed (anxiety). Active ibuprofen (ADVIL,MOTRIN) 200 MG tablet Take 200 mg by mouth every 6 (six) hours as needed for pain (specific location in comments). Active calcium carbonate 500 mg (200 mg elemental) chewable tablet Take 1 tablet by mouth daily as needed for heartburn. Active MAGNESIUM GLUCONATE ORAL Take 1,200 mg by mouth nightly at bedtime. Active acetaminophen (TYLENOL) 500 mg capsule Take 500 mg by mouth every 6 (six) hours as needed for fever or pain (specific location in comments). Active cholecalciferol (VITAMIN D3) 25 MCG (1,000 unit) tablet Take 1,000 Units by mouth daily. Active cyanocobalamin, vitamin B-12, 1000 MCG tablet Take 1,000 mcg by mouth daily. Active ascorbic acid, vitamin C, (VITAMIN C) 250 mg Chew Take 250 mg by mouth daily. Active lurasidone (LATUDA) 60 mg tablet Take 60 mg by mouth daily with dinner. Active nitrofurantoin (MACROBID) 100 MG capsule Take 100 mg by mouth nightly at bedtime. Active PARoxetine (PAXIL) 30 MG tablet Take 30 mg by mouth every morning. Active alfuzosin (UROXATRAL) 10 mg 24 hr tablet Take 10 mg by mouth daily. Active divalproex (DEPAKOTE) [address] tablet Take 500 mg by mouth nightly at bedtime. Active clomiPRAMINE (ANAFRANIL) 25 MG capsule Take 75 mg by mouth nightly at bedtime. Active clomiPRAMINE (ANAFRANIL) 25 MG capsule Take 100 mg by mouth every morning. Active Active Problems Problem Noted Date Diagnosed Date Suicidal ideation 07/07/2025 Encounters Date Type Department Care Team Description 07/07/2025 3:51 PM EDT - 07/08/2025 1:42 PM EDT Hospital Encounter [facility] [address] [place] [address] Omar Up MD Savage, Justin G, DO Chapin, Ethan Adair, MD Discharge Disposition: [facility] from Last 3 Months Social History Tobacco Use Types Packs/Day Years [...] not to disclose 2024 4:10 PM EDT Last Filed Vital Signs Vital Sign Reading Time Taken Comments Blood Pressure 119/75 07/08/2025 11:35 AM EDT Pulse 117 07/08/2025 11:35 AM EDT Temperature 37.1 C (98.8 F) 07/08/2025 11:35 AM EDT Respiratory Rate 16 07/08/2025 11:35 AM EDT Oxygen Saturation 98% 07/08/2025 11:35 AM EDT Inhaled Oxygen Concentration - - Weight - - Height - - Body Mass Index - - Plan of Treatment Health Maintenance Due Date Last Done Comments VALPROIC ACID (DEPAKENE) LEVEL 2002 DEPRESSION SCREENING 2014 HPV VACCINES (1 - Male 3-dos e series) 2017 MENINGOCOCCAL VACCINES (B) ( 1 of 2 - Standard) 2018 HEPATITIS C SCREENING 2020 HIV ONE-TIME SCREENING (18-6 5 YEARS) 2020 INFLUENZA VACCINE (#1) 2025 COVID-19 VACCINE (1 - 2023-2 5 season) 2025 SMOKING Hx and SMOKELESS TOB ACCO SCREENING 07/07/2026 07/07/2025 Adult Td,Tdap Booster 05/25/2034 05/25/2024 HEPATITIS A VACCINES Aged Out No long er eligible based on patient's age to complete this topic HIB VACCINES Aged Out No longer eligi ble based on patient's age to complete this topic MENINGOCOCCAL VACCINES (ACWY) Aged Out No longer eligible based on patient's age to complete this topic PNEUMOCOCCAL VACCINES (0-49 years) Aged Out No longer eligible based on patient's age to complete this topic Medical Devices Not on file Procedures Procedure Name Priority Date/Time Associated Diagnosis Comments POCT GLUCOSE Routine 07/08/2025 7:28 AM EDT TOXICOLOGY SCREEN, URINE STAT 07/07/2025 6:42 PM EDT ETHANOL, BLOOD STAT 07/07/2025 4:26 PM EDT LFTS (HEPATIC PANEL) STAT 07/07/2025 4:26 PM EDT BASIC METABOLIC PANEL STAT 07/07/2025 4:26 PM EDT CBC AND DIFFERENTIAL STAT 07/07/2025 4:26 PM EDT ECG 12-LEAD STAT 07/07/2025 3:49 PM EDT from Last 3 Months Results * POCT Glucose (07/08/2025 7:28 AM EDT) [facility] Signature Glucose, POCT 83 70 - 100 mg/dL [facility] 07/08/2025 7:28 AM EDT 07/08/2025 7:34 AM EDT Shaka Kapadia MD POINT OF CARE TEST ORDERAB LES Final Result [facility] [address] [place] [address] * Toxicology screen, urine (07/07/2025 6:42 PM EDT) URINE CANNABINOIDS NONE DETECTED NONE DETECTED [facility] Comment:Cutoff: 50 ng/mL URINE COCAINE METAB NONE DETECTED NONE DETECTED [facility] Comment:Cutoff: 300 ng/mL URINE AMPHETAMINES NONE DETECTED NONE DETECTED [facility] Comment:Cutoff: 1000 ng/mL URINE METHADONE NONE DETECTED NONE DETECTED [facility] Comment:Cutoff: 300 ng/mL URINE OPIATES NONE DETECTED NONE DETECTED [facility] Comment:Cutoff: 300 ng/mL URINE PHENCYCLIDINE NONE DETECTED NONE DETECTED [facility] Comment:Cutoff: 25 ng/mL URINE OXYCODONE NONE DETECTED NONE DETECTED [facility] Comment:Cutoff: 300 ng/mL URINE BARBITURATES NONE DETECTED NONE DETECTED [facility] Comment:Cutoff: 200 ng/mL URINE BENZODIAZEPINE NONE DETECTED NONE DETECTED [facility] Comment:Cutoff: 200 ng/mL URINE BUPRENORPHINE NONE DETECTED NONE DETECTED [facility] Comment:Cutoff: 5 ng/mL Fentanyl, urine NONE DETECTED NONE DETECTED [facility] Comment: Cutoff: 5 ng/mL INTERPRETATION FOR TOXICOLOGY PANEL: These results are unconfirmed and should be used for Medical Treatment purposes only. Urine (Urine) 07/07/2025 6:4 2 PM EDT 07/07/2025 6:51 PM EDT us Caty Milan MD URINE ORDERABLES Final Re sult Performing Organization Address City/[facility] Co de Phone Number [address] [address] * Ethanol, blood (07/07/2025 4:26 PM EDT) ETHANOL <10 <10 mg/dL [facility] Blood 07/07/2025 4:26 PM EDT 07/07/2025 4:28 PM EDT us Caty Milan MD LAB BLOOD ORDERABLES Hailey l Result Performing Organization Address City/[facility] Co de Phone Number [address] [address] * (ABNORMAL) LFTs (hepatic panel) (07/07/2025 4:26 PM EDT) ALKALINE PHOSPHATASE 81 39 - 117 U/L [facility] TOTAL BILIRUBIN <0.2 0.0 - 1.2 mg/dL [facility] DIRECT BILIRUBIN <0.1 0.0 - 0.2 mg/dL [facility] Bilirubin (Indirect) NOT CALCULATED 0 - 1.5 mg/dL [facility] AST 19 0 - 37 U/L [facility] ALT 29 0 - 40 U/L [facility] TOTAL PROTEIN 7.6 6.5 - 8.0 g/dL [facility] ALBUMIN 4.9(H) 3.9 - 4.8 g/dL [facility] GLOBULIN 2.7 1 - 4.8 g/dL [facility] A/G Ratio 1.81 1.00 - 4.80 RATIO [facility] Blood 07/07/2025 4:26 PM EDT 07/07/2025 4:28 PM EDT us Caty Milan MD LAB BLOOD ORDERABLES Hailey l Result [facility] [address] [place] [address] * CBC and differential (07/07/2025 4:26 PM EDT) WBC 7.52 4.00 - 11.00 K/uL [facility] RBC 4.96 4.50 - 5.90 M/uL [facility] HGB 14.8 13.5 - 17.5 g/dL [facility] HCT 44.8 41.0 - 53.0 % [facility] PLT 235 150 - 450 K/uL [facility] MCV 90.3 80.0 - 100.0 fL [facility] MCH 29.8 27.0 - 31.0 pg [facility] MCHC 33.0 32.0 - 36.0 g/dL [facility] RDW 12.1 11.5 - 14.5 % [facility] MPV 10.5 8.4 - 12.0 [facility] NRBC 0.00 0.00 /100 WBCs [facility] ABSOLUTE NRBC 0.00 0.00 K/uL [facility] DIFF METHOD Auto [facility] NEUTS 56.8 48.0 - 76.0 % [facility] LYMPHS 29.4 18.0 - 41.0 % [facility] MONOS 9.3 4.0 - 11.0 % [facility] EOS 3.3 0.0 - 5.0 % [facility] BASOS 0.5 0.0 - 1.5 % [facility] Granulocytes, immature (%) 0.7 0.0 - 0.9 % [facility] ABSOLUTE NEUTS 4.27 1.92 - 7.60 K/uL [facility] ABSOLUTE LYMPHS 2.21 0.72 - 4.10 K/uL [facility] ABSOLUTE MONOS 0.70 0.16 - 1.10 K/uL [facility] ABSOLUTE EOS 0.25 0.00 - 0.50 K/uL [facility] ABSOLUTE BASOS 0.04 0.00 - 0.15 K/uL [facility] Granulocytes, immature 0.05 0.00 - 0.09 K/uL [facility] Blood 07/07/2025 4:26 PM EDT 07/07/2025 4:28 PM EDT us Caty Milan MD LAB BLOOD ORDERABLES Hailey l Result Performing Organization Address City/State/[facility] Co de Phone Number [facility] [address] [place] [address] * Basic metabolic panel (07/07/2025 4:26 PM EDT) SODIUM 143 133 - 146 mmol/L [facility] CHLORIDE 103 96 - 108 mmol/L [facility] POTASSIUM 4.5 3.3 - 5.1 mmol/L [facility] Comment:Specimen slightly he molyzed, result may be falsely elevated. CO2 28 21 - 35 mmol/L [facility] BUN 13 6 - 19 mg/dL [facility] CREATININE 1.00 0.5 - 1.5 mg/dL [facility] GLUCOSE 92 70 - 99 mg/dL [facility] CALCIUM 9.5 8.4 - 10.3 mg/dL [facility] EGFR 108 >59 mL/min/1.7 3m2 [facility] Comment:Estimated glomerular filtration rate calculated using the CKD-EPI refit equation. ANION GAP 17 10 - 20 mmol/L [facility] Blood 07/07/2025 4:26 PM EDT 07/07/2025 4:28 PM EDT us Caty Milan MD LAB BLOOD ORDERABLES Hailey l Result [facility] [address] [place] [address] * ECG 12-LEAD (07/07/2025 3:49 PM EDT) Ventricular Rate EKG/MIN 115 BPM [facility] Atrial Rate 115 BPM [facility] LA Interval 142 ms [facility] QRS Duration 86 ms [facility] QT Interval 328 ms [facility] QTC Interval 453 ms [facility] P [place] 67 degrees [facility] R Wave [place] 60 degrees [facility] T Wave [place] 70 degrees [facility] 07/07/2025 3:49 PM EDT 07/08/2025 8:16 AM EDT Narrative [facility] - 07/08/2025 8:17 AM EDT Sinus tachycardia Nonspecific T wave abnormality Abnormal ECG No previous ECGs available Confirmed by Tito Pacheco ([id number]) on 07/08/2025 8:16:54 AM us Caty Milan MD ECG ORDERABLES Final Res ult [facility] from Last 3 Months Insurance GENERIC COMMERCIAL GENERIC COMMERCIAL GENERIC COMMERCIAL GENERIC COMMERCIAL [place] [id number] GENERIC COMMERCIAL Care Teams Bio Medical Technician Relationship Specialty Start Date End Date Pcp, Unknown PCP - General 07/07/25 Additional Source Comments The information contained in this document represents components of the legal health record. It is not the complete legal health record.[facility]
--- OUTSIDE RECORDS SUMMARY | 2025-07-08 18:37 | XMS_ITS ---
Author Name [facility] Organization Unknown Results Test Name/Text Value Interpretation Date Range Source Valproate SerPl-mCnc 49.0 UG/ML Below low normal 08/14/2024 50 - 100 [facility] Albumin SerPl BCG-mCnc 4.2 G/DL Normal 08/14/2024 3.2 - 5 [facility] BUN SerPl-mCnc 13.0 MG/DL Normal 08/14/2024 5 - 25 [facility] Sodium SerPl-sCnc 140.0 MMOL/L Normal 08/14/2024 135 - 14 6 [facility] Creat SerPl-mCnc 0.9 MG/DL Normal 08/14/2024 0.7 - 1.4 [facility] Anion Gap SerPl-sCnc 10.0 MMOL/L Normal 08/14/2024 4 - 12 [facility] Prot SerPl-mCnc 7.2 G/DL Normal 08/14/2024 6.4 - 8.2 [facility] Bilirub SerPl-mCnc 0.2 MG/DL Below low normal 08/14/2024 0.3 - 1.3 [facility] Chloride SerPl-sCnc 107.0 MMOL/L Normal 08/14/2024 95 - 1 12 [facility] AST SerPl-cCnc 16.0 U/L Normal 08/14/2024 10 - 40 [facility] CO2 SerPl-sCnc 23.0 MMOL/L Normal 08/14/2024 18 - 32 [facility] ALP SerPl-cCnc 77.0 [IU]L Normal 08/14/2024 32 - 132 [facility] Globulin Ser Calc-mCnc 3.0 G/DL Normal 08/14/2024 1.4 - 5 [facility] ALT SerPl w/o P-5'-P-cCnc 29.0 [IU]L Normal 08/14/2024 6 - 46 [facility] Potassium SerPl-sCnc 4.0 MMOL/L Normal 08/14/2024 3.5 - 5 .2 [facility] Calcium SerPl-mCnc 9.1 MG/DL Normal 08/14/2024 8.4 - 10.4 [facility] Albumin/Glob SerPl 1.4 % Normal 08/14/2024 0.9 - 2.8 [facility] Glucose SerPl-mCnc 85.0 MG/DL Normal 08/14/2024 65 - 140 [facility] RDW RBC Auto-Rto 11.9 % Normal 08/14/2024 11.8 - 15.5 [facility] MCV RBC Auto 86.9 FL Normal 08/14/2024 81 - 99 [facility] nRBC/100 WBC Bld Auto-Rto 0.0 % Normal 08/14/2024 0 - 0 [facility] Neutrophils # Bld Auto 4.75 10*3/UL Normal 08/14/2024 1.8 - 7.7 [facility] Eosinophil/leuk NFr Bld Auto 3.0 % Normal 08/14/2024 1 - 3 [facility] MCH RBC Qn Auto 29.6 PG Normal 08/14/2024 28 - 32 [facility] Hgb Bld-mCnc 15.1 G/DL Normal 08/14/2024 13.5 - 17 [facility] Monocytes # Bld Auto 0.86 10*3/UL Normal 08/14/2024 0.1 - 1.4 [facility] MCHC RBC Auto-mCnc 34.1 G/DL Normal 08/14/2024 32 - 36 [facility] Monocytes/leuk NFr Bld Auto 9.8 % Normal 08/14/2024 2 - 11 [facility] Neutrophils/leuk NFr Bld Auto 54.3 % Normal 08/14/2024 50 - 70 [facility] Lymphocytes # Bld Auto 2.77 10*3/UL Normal 08/14/2024 1 - 4.8 [facility] RBC # Bld Auto 5.1 10*6/UL Normal 08/14/2024 4.5 - 5.9 [facility] WBC # Bld Auto 8.74 10*3/UL Normal 08/14/2024 3.4 - 10.8 [facility] Hct VFr Bld Auto 44.3 % Normal 08/14/2024 41 - 51 [facility] Imm Granulocytes/leuk NFr Bld Auto 0.6 % Above high normal 08/14/2024 0 - 0.4 [facility] Imm Granulocytes # Bld Auto 0.05 10*3/UL Above high normal 08/14/2024 0 - 0.03 [facility] Basophils/leuk NFr Bld Auto 0.6 % Normal 08/14/2024 0 - 1 [facility] Eosinophil # Bld Auto 0.26 10*3/UL Normal 08/14/2024 0 - 0.5 [facility] Lymphocytes/leuk NFr Bld Auto 31.7 % Normal 08/14/2024 20 - 40 [facility] Basophils # Bld Auto 0.05 10*3/UL Normal 08/14/2024 0 - 0 .2 [facility] nRBC # Bld Auto 0.0 10*3/UL Normal 08/14/2024 0 - 0 [facility] Platelet # Bld Auto 246.0 10*3/UL Normal 08/14/2024 140 - 400 [facility] PMV Bld Auto 10.0 FL Normal 08/14/2024 9.5 - 13.3 [facility] FLUBV RNA Nph Ql CED+non-probe Negative Normal 07/14/2024 [facility] SARS-CoV-2 RNA Resp Ql CED+probe Negative Normal 07/14/2024 [facility] RSV RNA Nph Ql CED+non-probe Negative Normal 07/14/2024 [facility] FLUAV RNA Nph Ql CED+non-probe Negative Normal 07/14/2024 [facility] SARS-CoV-2 (COVID-19) RNA [Presence] in Respiratory specimen by CED with probe detection NOT DETECTED Normal 07/14/2024 [facility] ALP SerPl-cCnc 86.0 [IU]L Normal 07/14/2024 32 - 132 [facility] Albumin SerPl BCG-mCnc 4.3 G/DL Normal 07/14/2024 3.2 - 5 [facility] Prot SerPl-mCnc 7.4 G/DL Normal 07/14/2024 6.4 - 8.2 [facility] Bilirub Conj SerPl-mCnc 0.1 MG/DL Normal 07/14/2024 0 - 0.5 AA AST SerPl-cCnc 19.0 U/L Normal 07/14/2024 10 - 40 AA ALT SerPl w/o P-5'-P-cCnc 36.0 [IU]L Normal 07/14/2024 6 - 46 [facility] Chloride SerPl-sCnc 106.0 MMOL/L Normal 07/14/2024 95 - 1 12 [facility] Calcium SerPl-mCnc 9.4 MG/DL Normal 07/14/2024 8.4 - 10.4 [facility] BUN SerPl-mCnc 12.0 MG/DL Normal 07/14/2024 5 - 25 [facility] C Sodium SerPl-sCnc 141.0 MMOL/L Normal 07/14/2024 135 - 14 6 [facility] Creat SerPl-mCnc 1.1 MG/DL Normal 07/14/2024 0.7 - 1.4 [facility] Glucose SerPl-mCnc 86.0 MG/DL Normal 07/14/2024 65 - 140 [facility] CO2 SerPl-sCnc 27.0 MMOL/L Normal 07/14/2024 18 - 32 [facility] Anion Gap SerPl-sCnc 8.0 MMOL/L Normal 07/14/2024 4 - 12 [facility] Potassium SerPl-sCnc 3.8 MMOL/L Normal 07/14/2024 3.5 - 5 .2 [facility] RDW RBC Auto-Rto 11.9 % Normal 07/13/2024 11.8 - 15.5 [facility] Lymphocytes # Bld Auto 2.77 10*3/UL Normal 07/13/2024 1 - 4.8 [facility] Lymphocytes/leuk NFr Bld Auto 32.1 % Normal 07/13/2024 20 - 40 [facility] MCHC RBC Auto-mCnc 35.0 G/DL Normal 07/13/2024 32 - 36 [facility] nRBC/100 WBC Bld Auto-Rto 0.0 % Normal 07/13/2024 0 - 0 [facility] Neutrophils/leuk NFr Bld Auto 55.0 % Normal 07/13/2024 50 - 70 [facility] Basophils # Bld Auto 0.06 10*3/UL Normal 07/13/2024 0 - 0 .2 [facility] Imm Granulocytes # Bld Auto 0.05 10*3/UL Above high normal 07/13/2024 0 - 0.03 [facility] Platelet # Bld Auto 246.0 10*3/UL Normal 07/13/2024 140 - 400 [facility] WBC # Bld Auto 8.63 10*3/UL Normal 07/13/2024 3.4 - 10.8 [facility] nRBC # Bld Auto 0.0 10*3/UL Normal 07/13/2024 0 - 0 [facility] RBC # Bld Auto 5.32 10*6/UL Normal 07/13/2024 4.5 - 5.9 A [facility] MCV RBC Auto 86.5 FL Normal 07/13/2024 81 - 99 [facility] Monocytes/leuk NFr Bld Auto 7.2 % Normal 07/13/2024 2 - 11 [facility] MCH RBC Qn Auto 30.3 PG Normal 07/13/2024 28 - 32 [facility] Eosinophil/leuk NFr Bld Auto 4.4 % Above high normal 07/13/2024 1 - 3 [facility] Eosinophil # Bld Auto 0.38 10*3/UL Normal 07/13/2024 0 - 0.5 [facility] Hgb Bld-mCnc 16.1 G/DL Normal 07/13/2024 13.5 - 17 [facility] PMV Bld Auto 10.9 FL Normal 07/13/2024 9.5 - 13.3 [facility] Monocytes # Bld Auto 0.62 10*3/UL Normal 07/13/2024 0.1 - 1.4 [facility] Neutrophils # Bld Auto 4.75 10*3/UL Normal 07/13/2024 1.8 - 7.7 [facility] Imm Granulocytes/leuk NFr Bld Auto 0.6 % Above high normal 07/13/2024 0 - 0.4 [facility] Hct VFr Bld Auto 46.0 % Normal 07/13/2024 41 - 51 [facility] Basophils/leuk NFr Bld Auto 0.7 % Normal 07/13/2024 0 - 1 [facility] Problems Problem Status Onset Date Problem Type Date of Resoluti on Source Chest pain, unspecified type active EncounterDiagnosisAct [facility] Encounters Encounter Type Encounter Reason Primary Diagnosis Location Date Emergency Depression, unspecified Depression, unspecified [facility] 08/13/2024 Emergency Chest pain, unspecified Chest pain, unspecified [facility] 07/13/2024 Care Team Organization Name Specialty Phone Email Start Date End Da te [employer] 11/04/2024 12/17/19 25 [facility] 07/14/2024 [facility] 07/14/2024
--- OUTSIDE RECORDS SUMMARY | 2025-07-08 18:37 | XMS_ITS | Data Portability ---
Author Organization [address] [facility], [place] Address [address] [place] [id number] Care Team Providers Care Head Of Research & Insights Name Role Phone CHAZ DIETZ Primary Care Provider Assessment Encounter Date Assessment Date Assessment LastModified by Organization Details LastModified Time 03/24/2024 03/24/2024 I have a low index of suspicion that Mr. Hardwick is having physiological events. I believe it is a psycho somatic manifestation of his anxiety. Be that as it may, we are going to check an EEG to dot all the Is and cross all the Ts. He is going to return with a video of one of the events So I can get an eye's on view of it and then probably graduate him from Neurology. Thank you very much for allowing me to take part in the care of this pleasant gentleman. I spent greater than 45 minutes on all aspects of this case from midnight to midnight on the day of the visit. Physician time includes but not limited to the following activities when performed on the date of the encounter: *preparing to see the patient (eg, review of last notes, medications tests etc...) *obtaining and/or reviewing separately obtained history *performing a medically appropriate examination and/or evaluation *counseling and educating the patient/family/c aregiver *Documenting in patient's electronic medical record Dictated but not read by MD Copy sent to Dr. Song billings Not available 03/25/2024 07:42:26 05/06/2024 05/06/2024 FROM 05-06-24 Non physiological movements witnessed on video. Normal EEG. Return as needed. I spent greater than 31 minutes on all aspects of this case from midnight to midnight on the day of the visit. Physician time includes but not limited to the following activities when performed on the date of the encounter: *preparing to see the patient (eg, review of last notes, medications tests etc...) *obtaining and/or reviewing separately obtained history *performing a medically appropriate examination and/or evaluation *counseling and educating the patient/family/c aregiver *Documenting in patient's electronic medical record Dictated but not read by MD FROm 03/2024 I have a low index of suspicion that Mr. Hardwick is having physiological events. I believe it is a psycho somatic manifestation of his anxiety. Be that as it may, we are going to check an EEG to dot all the Is and cross all the Ts. He is going to return with a video of one of the events So I can get an eye's on view of it and then probably graduate him from Neurology. Thank you very much for allowing me to take part in the care of this pleasant gentleman. I spent greater than 45 minutes on all aspects of this case from midnight to midnight on the day of the visit. Physician time includes but not limited to the following activities when performed on the date of the encounter: *preparing to see the patient (eg, review of last notes, medications tests etc...) *obtaining and/or reviewing separately obtained history *performing a medically appropriate examination and/or evaluation *counseling and educating the patient/family/c aregiver *Documenting in patient's electronic medical record Dictated but not read by MD Copy sent to Dr. Song billings Not available 05/06/2024 12:45:23 Plan of Treatment Reminders Order Date Submit Date Provider Last Modified By Organization Details Last Modified Time Details Appointments None recorded. Lab None recorded. Referral None recorded. Procedures None recorded. Surgeries None recorded. Imaging electroence phalogram 2023 024 [facility], [address] [place] [address], Suite [facility], [place], [address], 08:20:39 Medication Orders None recorded. Patient TargetsNo targets recorded. Patient InstructionsNo instructions recorded. Reason for Referral None Reported. Results Created Date Observation Date Name Description Value Unit Range Abnormal Flag Note LastModifiedBy Organization Detail LastModifiedTime 03/24/20 24 03/25/2024 elect tiara banks ogarsenio No observ ation record ed. [address], [place], [address], 03/25/2024 13:45:22 Result Notes None recorded. Problems Name Problem SNOMED Code Status Onset Date Resolution Date Notes Provider Name and Address Organization Details Recorded Time Chronic depression [id number] Active 022 E Abel Avila MD [address] [place] [address], [phone], [address] [facility] 4 09:17:50 Problem Notes None recorded. Procedures Surgical History Date Name Laterality Status Provider Name and Address Organization Details Recorded Time Analia EEG Template completed [facility] [address] [place] [address], [id number], [address] [facility] 03/25/2024 10:04:31 4 SD NORMAL EEG completed Krista Walker DO [address] [place] [address], [phone], [address] [facility] 03/26/2024 14:37:44 Imaging Results None recorded. Procedure Notes None recorded. Medical Equipment None Reported. Allergies No known drug allergies Medications Name Sig Start Date Stop Date Status Note LastModified by Organization Details LastModified Time buspirone 5 mg tablet TAKE 1 TABLET BY MOUTH THREE TIMES A DAY active Not Available Not Available No t Available venlafaxine ER 37.5 mg capsule,ext ended release 24 hr TAKE 1 CAPSULE BY MOUTH EVERY DAY IN THE MORNING active Not Available Not Available No t Available venlafaxine ER 75 mg capsule,ext ended release 24 hr TAKE 1 CAPSULE BY MOUTH EVERY DAY WITH FOOD active Not Available Not Available No t Available divalproex 250 mg tablet,ariela yed release TAKE 1 TABLET BY MOUTH TWICE A DAY active Not Available Not Available No t Available clomipramin e 75 mg capsule TAKE 1 CAPSULE BY MOUTH EVERYDAY AT BEDTIME active Not Available Not Available No t Available clonazepam 0.5 mg tablet TAKE 1 TABLET BY MOUTH TWICE A DAY 05/06 completed Not Available Not Available Not Available venlafaxine ER 150 mg capsule,ext ended release 24 hr TAKE 1 CAPSULE BY MOUTH EVERY DAY active Not Available Not Available No t Available hydroxyzine HCl 50 mg tablet TAKE 1 TABLET BY MOUTH THREE TIMES A DAY 05/06 completed Not Available Not Available Not Available divalproex 500 mg tablet,ariela yed release TAKE 1 TABLET BY MOUTH EVERYDAY AT BEDTIME active Not Available Not Available No t Available lorazepam 0.5 mg tablet TAKE 1 TABLET BY MOUTH EVERY DAY NEEDED FOR ANXIETY active Not Available Not Available No t Available divalproex ER 500 mg tablet,exte nded release 24 hr TAKE 1 TABLET BY ORAL ROUTE EVERY DAY AT BEDTIME (DEPAKOTE SOD ER) active Not Available Not Available No t Available lorazepam 1 mg tablet TAKE 1 TABLET BY MOUTH TWICE A DAY NEEDED active Not Available Not Available No t Available clomipramin e 50 mg capsule TAKE 2 CAPSULE BY MOUTH EVERY MORNING FOR OCD. active Not Available Not Available No t Available propranolol 20 mg tablet TAKE 1 TABLET BY MOUTH EVERY DAY NEEDED 05/06 completed Not Available Not Available Not Available clomipramin e 25 mg capsule TAKE 1 CAPSULE BY MOUTH EVERY EVENING WITH MEAL FOR OCD. active Not Available Not Available No t Available aripiprazol e 10 mg tablet TAKE 1 TABLET BY MOUTH EVERY DAY active Not Available Not Available No t Available divalproex ER 250 mg tablet,exte nded release 24 hr TAKE 1 TABLET BY MOUTH EVERYDAY AT BEDTIME active Not Available Not Available No t Available bupropion HCl XL 150 mg 24 hr tablet, extended release TAKE 1 TABLET BY MOUTH EVERY DAY 05/06 completed Not Available Not Available Not Available melatonin 1 mg tablet TAKE 1 TABLET BY MOUTH AT BEDTIME NEEDED 05/06 completed Not Available Not Available Not Available Anafranil active Not Available Not Ewa ilable Not Available Depakote active Not Available Not Avai lable Not Available Rexulti 1 mg tablet TAKE 1 TABLET BY MOUTH EVERY DAY IN THE MORNING 05/06 completed Not Available Not Available Not Available Rexulti 0.5 mg tablet TAKE 1 TABLET (0.5 MG) DAILY BY MOUTH INDICATIO NS: MAJOR DEPRESSIV E DISORDER active Not Available Not Available No t Available Vitals Date Recorded Body height Body mass index (BMI) Body weight Heart rate Oxygen saturation Oxygen saturation in Arterial blood by Pulse oximetry Systolic And Diastolic Provider Name and Address Organization Details Last Updated DateTime 4 185.42 cm 31.7 kg/m2 312353. 17 g 97 /min 99 % 99 % 132/90 mm[Hg] Greer Whitfield [address] & [facility] 4 08:39:23 Date Recorded Body height Body mass index (BMI) Body weight Heart rate Oxygen saturation Oxygen saturation in Arterial blood by Pulse oximetry Systolic And Diastolic Provider Name and Address Organization Details Last Updated DateTime 4 185.42 cm 32.9 kg/m2 866329. 5 g 100 /min 98 % 98 % 136/90 mm[Hg] Greer Whitfield [address] & [facility] 4 11:46:22 Social History Question Answer Notes LastModified by Organizat ion Details LastModified Time Tobacco Smoking Status Never Smoker Greer Whitfield tere [address] & [facility] 03/24/2024 08:40:06 What Is Your Level Of Caffeine Consumption? Occasional 1 Can Of Soda Every Other Day Information not available 03/24/2024 What Was The Date Of Your Most Recent Tobacco Screening? 05/06/2024 Information not available 05/06/2024 Sex: Unknown Functional Status Question Answer Note LastModified by Organization D etails LastModified Time What is your level of alcohol consumption? None Information not available 03/24/2024 Mental Status None recorded. Family History Nothing Reported. Medical History No medical history recorded. Past Encounters Encounter ID Performer Location Encounter Start Date Encounter Closed Date Diagnosis/Indication Diagnosis SNOMED-CT Code Diagnosis ICD10 Code Diagnosis IMO Codes Diagnosis Note [id number] Emeka Avila MD [address] [address] 03/24/2024 08:31:26 03/24/2024 16:32:38 Involuntary movement 142520481 R25.9 [id number] [employer] [address] [address] 03/25/2024 09:33:03 03/25/2024 10:20:53 Involuntary movement 594151801 R25.9 [id number] Emeka Avila MD [address] [address] 05/06/2024 11:12:29 05/06/2024 13:26:04 Involuntary movement 632692395 R25.9 Health Concerns Section Related Observation LastModified by Organization Detai ls LastModified Time None Recorded Concern Status LastModified by Organization Details LastModified Time None Recorded Advance Directives Directive None Recorded Payers Insurance Date Sequence Insurance Name Policy Number Policy Husain Covered Member ID Husain Member ID Guarantor Name 05/06/2024 1 [employer] (POS II) Hans Hardwick [id number] Hans Hardwick 04/21/2024 1 *SELF PAY* Al josesito Hardwick Notes Date Note Type Note Provider Name and Address Organization Details Recorded Time 03/24/2024 text/html Dear Dr. Song Castro [facility] Chief Complaint: Abnormal Movements History of Present Illness: I had the pleasure of seeing Hans Hardwick today for neurological evaluation at your request. As you know he is a very pleasant [age] year old right handed gentleman who has had a year off from school due to depression and anxiety. He is seeing a psychiatrist and he feels considerably improved. He is on a host of medications listed in the EMR. He reports that when he gets very anxious, he will have abnormal movements but only at those times. The arms will jerk. When he gets very anxious, he may thrash around but retain consciousness. He did not bring in a video of this for me to see. There is no tongue biting4 or urination or post event confusion. There is no history of head injury or seizure in himself or in the family. I am asked to evaluate this behavior. E Abel Avila MD [address] [place] [address], [phone] - [facility] & [facility] 03/25/2024 09:32:52 05/06/2024 text/html Dear Dr. Song Castro [facility] Chief Complaint: Abnormal Movements History of Present Illness: FROM 05-06-24 I saw Vazquez salgado. The EEG is normal. He showed me a video of his movements when he is under stress. They are only when he is under stress. They are non rhythmic. There are pauses in between. It does not at all look like a seizure or known movement disorder to me. He does have some quick shoulder jerk here in the office which certainly could be a tic. He says there is some voluntary control over it but what I saw in the video is not. Again, things happen only when he is under stress and just started since this depression. He is working hard on it. From 04/06I had the pleasure of seeing Hans Hardwick today for neurological evaluation at your request. As you know he is a very pleasant [age] year old right handed gentleman who has had a year off from school due to depression and anxiety. He is seeing a psychiatrist and he feels considerably improved. He is on a host of medications listed in the EMR. He reports that when he gets very anxious, he will have abnormal movements but only at those times. The arms will jerk. When he gets very anxious, he may thrash around but retain consciousness. He did not bring in a video of this for me to see. There is no tongue biting4 or urination or post event confusion. There is no history of head injury or seizure in himself or in the family. I am asked to evaluate this behavior. E Abel Avila MD [address] [place] [address], [phone], [facility] - 2020[facility] & [facility] 05/07/2024 10:13:34
--- OUTSIDE RECORDS SUMMARY | 2025-07-08 18:38 | XMS_ITS | Clinical Summary ---
Author Organization [facility] Address [address] [place] [address] Phone Care Team Providers Care Jewel Bearing Turner Name Role Phone Unavailable Primary Care Provider Unavailabl e Allergies No known active allergies Medications clomiPRAMINE (ANAFRANIL) 75 MG capsuleIndicati ons:Major Depressive Disorder,Obsess oleg Compulsive Disorder Take 1 capsule (75 mg total) by mouth daily at bedtime 30 capsule 08/05/2023 Active divalproex sodium (DEPAKOTE ER) 500 mg 24 hr tabletIndicatio ns:Depressive Phase Bipolar Mood Disorder Take 1 tablet (500 mg total) by mouth daily at bedtime 30 tablet 08/05/2023 Active LORazepam (ATIVAN) 1 mg tabletIndicatio ns:Anxiety Take 1 tablet (1 mg total) by mouth 2 (two) times a day 60 tablet 08/05/2023 Active venlafaxine (EFFEXOR-XR) 37.5 mg 24 hr capsuleIndicati ons:Major Depressive Disorder Take 1 capsule (37.5 mg total) by mouth daily 30 capsule 08/05/2023 Active Brexpiprazole (REXULTI) 2 MG tabletIndicatio ns:Major Depressive Disorder Take 1 tablet (2 mg total) by mouth daily 30 tablet 08/05/2023 Active ARIPiprazole (ABILIFY) 10 mg tabletIndicatio ns:Major Depressive Disorder,Obsess oleg Compulsive Disorder Take 1 tablet (10 mg total) by mouth daily Do not start before August 06, 2023. 30 tablet 08/06/2023 Active Active Problems Problem Noted Date Diagnosed Date Major depressive disorder 07/29/2023 OCD (obsessive compulsive disorder) 07/29/2023 Anxiety 07/29/2023 Resolved Problems Problem Noted Date Diagnosed Date Resolved Date Medical clearance for psychiatric admission 07/29/2023 08/02/2023 Assessment & Plan (07/29/2023 4:40 PM EDT): At this time, patient appears medically stable to continue inpatient psychiatric management. Current labs, nursing notes and imaging reviewed. Pending Labs: RPR Recent EKG: NSR, 79 BPM, QTc 433 Please reach out to [facility] with any further questions Depression 07/29/2023 08/02/2023 Assessment & Plan (07/29/2023 9:49 AM EDT): Presented with SI Management per psych Immunizations Immunization Administration Dates Next Due Influenza, injectable, quadr ivalent, preservative free 0.5 mL 07/31/2023 Social History Tobacco Use Types Packs/Day Years Used Date Smoking Tobacco: Never Passive Smoke Exposure: Never Smokeless Tobacco: Never Tobacco Cessation:Counseling Given: No Comments:N/A, non-smoker. Alcohol Use Standard Drinks/Week Comments Never 0 (1 standard drink = 0.6 oz pur e alcohol) Sex and Gender Information Value Date Recorded Sex Assigned at Not on file Legal Sex Male 6:03 PM EDT Gender Identity Male 07/27/2023 6:23 PM EDT Sexual Orientation Not on file Last Filed Vital Signs Vital Sign Reading Time Taken Comments Blood Pressure 126/88 08/05/2023 7:14 AM EDT Pulse 88 08/05/2023 7:14 AM EDT Temperature 37 C (98.6 F) 08/05/2023 7:14 AM EDT Respiratory Rate 18 08/05/2023 7:14 AM EDT Oxygen Saturation 99% 08/05/2023 7:14 AM EDT Inhaled Oxygen Concentration - - Weight 105 kg (231 lb) 07/28/2023 9:59 PM EDT Height 185.4 cm (6' 1 ) 07/28/2023 9:59 PM EDT Body Mass Index 30.48 07/28/2023 9:59 PM EDT Plan of Treatment Health Maintenance Due Date Last Done Comments Hepatitis C Screening 2002 Depression Screening 2014 HIV Screening 2017 HPV Vaccine (1 - Male 3-dose series) 2017 Meningococcal B Vaccine (1 o f 2 - Standard) 2018 Annual Physical 2020 BMI: Adult 2020 DTaP,Tdap,and Td Vaccines (1 - Tdap) 2023 COVID-19 Vaccine (1 - 2023-2 5 season) 2025 Influenza Vaccine (#1) 2025 07/31/2023 Zoster Vaccine (1 of 2) 2052 HIB Vaccine Aged Out No longer eligi ble based on patient's age to complete this topic Hepatitis A Vaccine Aged Out No longe r eligible based on patient's age to complete this topic IPV Vaccine Aged Out No longer eligi ble based on patient's age to complete this topic Meningococcal ACWY Vaccine Aged Out N o longer eligible based on patient's age to complete this topic Pneumococcal Vaccine: Pediat rics (0 to 5 Years) and At-Risk Patients (6 to 49 Years) Aged Out No longer eligi ble based on patient's age to complete this topic RSV Vaccine age 0-20 Months Aged Out No longer eligible based on patient's age to complete this topic Insurance [employer] Corporation[employer]LLANEOUS COMMERCIAL MISCELLANEOUS COMMERCIAL MISCELLANEOUS COMMERCIAL MISCELLANEOUS Advance Directives For more information, please contact: [phone] (8AM - 5:30 PM [place], 7 days a week) * Level 1 - Full Code (Latest Code Status on File) Date Activated Date Inactivated Comments 07/28/2023 9:49 PM 08/05/2023 12:55 PM All life saving measures are indicated Question Answer Comments Resuscitation Order was disc ussed with (list all that apply): as per unit protocol
--- OUTSIDE RECORDS SUMMARY | 2025-07-08 18:38 | XMS_ITS | Clinical Summary ---
Author Organization [facility] Address [address] [facility] [place] [address] Care Team Providers Care Network Control Operator Name Role Phone Phys, No Family Primary Care Provider Unavailabl e Allergies No known active allergies Medications * This document contains information received from the source organization and may not represent a complete record from that organization. clonazePAM (KlonoPIN) 0.25 MG disintegrating tablet Dissolve 1 tablet (0.25 mg total) in cheek 3 (three) times a day as needed for anxiety. Active clomiPRAMINE (ANAFRANIL) 50 MG capsule Take 2 capsules (100 mg total) by mouth daily. Active clomiPRAMINE (ANAFRANIL) 75 MG capsule Take 1 capsule (75 mg total) by mouth nightly. Active divalproex (DEPAKOTE ER) 500 MG 24 hr tablet Take 750 mg by mouth nightly. Active clomiPRAMINE (ANAFRANIL) 75 MG capsule Take 1 capsule (75 mg total) by mouth nightly. 90 capsule 3 Active Active Problems Problem Noted Date Diagnosed Date MDD (major depressive disord er), recurrent severe, without psychosis 06/17/2024 Simple tics 06/10/2024 Panic attack as reaction to stress 06/10/2024 Cluster C personality disorder in adult 06/10/20 Major depressive disorder 06/09/2024 OCD (obsessive compulsive disorder) 06/09/2024 Generalized anxiety disorder 06/09/2024 Social History Tobacco Use Types Packs/Day Years Used Date Smoking Tobacco: Never Assessed [facility] Utilities Answer Date Recorded In the past 12 months has [employer], gas, oil, or water company threatened to shut off services in your home? No 06/09/2024 Humiliation, Afraid, Rape, and Kick questionnair e Answer Date Recorded Within the last year, have y ou been afraid of your partner or ex-partner? No 06/09/2024 Within the last year, have y ou been humiliated or emotionally abused in other ways by your partner or ex-partner? No Within the last year, have y ou been kicked, hit, slapped, or otherwise physically hurt by your partner or ex-partner? No 06/09/2024 Within the last year, have y ou been raped or forced to have any kind of sexual activity by your partner or ex-partner? No 06/09/2024 Overall Financial Resource Strain (CARDIA) Answe r Date Recorded How hard is it for you to pa y for the very basics like food, housing, medical care, and heating? Not hard at all 06/09/2024 Hunger Vital Sign Answer Date Recorded Within the past 12 months, y ou worried that your food would run out before you got the money to buy more. Never true 06/09/20 24 Within the past 12 months, t he food you bought just didn't last and you didn't have money to get more. Never true 06/09/2024 PRAPARE - Transportation Answer Date Re corded In the past 12 months, has l ack of transportation kept you from medical appointments or from getting medications? No 05/15 In the past 12 months, has l ack of transportation kept you from meetings, work, or from getting things needed for daily living? No 06/09/2024 Housing Stability Vital Sign Answer Fred e Recorded In the last 12 months, was t here a time when you were not able to pay the mortgage or rent on time? No 06/09/2024 In the past 12 months, how m any times have you moved where you were living? 0 06/09/2024 At any time in the past 12 m [facility], were you homeless or living in a alf (including now)? No 06/09/2024 Sex and Gender Information Value Date Recorded Sex Assigned at Not on file Legal Sex Male 4:17 PM EDT Gender Identity Not on file Sexual Orientation Not on file Last Filed Vital Signs Vital Sign Reading Time Taken Comments Blood Pressure 136/85 06/17/2024 3:13 PM EDT Pulse 104 06/17/2024 3:13 PM EDT Temperature 36.2 C (97.2 F) 06/17/2024 3:13 PM EDT Respiratory Rate 16 06/17/2024 3:13 PM EDT Oxygen Saturation 98% 06/17/2024 3:13 PM EDT Inhaled Oxygen Concentration - - Weight 114 kg (251 lb 15.8 oz) 06/17/2024 9:22 A M EDT Height 185.4 cm (6' 1 ) 06/09/2024 1:13 PM EDT Body Mass Index 33.25 06/09/2024 1:13 PM EDT Plan of Treatment Health Maintenance Due Date Last Done Comments HIV Screen 2002 Hepatitis C Screening 2002 Preventative Care Visit (18- 39 y.o.) 2002 Tetanus 2002 Depression Monitoring 2014 HPV Vaccine (1 - Male 3-dose series) 2017 Mening B (1 of 2 - Risk Bexs ero 2-Dose) 2018 Social Drivers of Health 2020 Hepatitis B Vaccine (1 of 3 - 19+ 3-dose series) 2021 Influenza Vaccine* (#1) 05/14/2025 07/31/2023 COVID-19 Vaccine (1 - 2023-2 5 season) 2025 RSV Vaccine (1 - 1-dose 75+ series) 2077 Lipid Screen Discontinued 07/29/2023 Pneumococcal Vaccine Aged Out No long er eligible based on patient's age to complete this topic Insurance [employer] REFERR[employer] 4TH [place] [address] COMMERCIAL Advance Directives * Full Code(By Default) (Latest Code Status on File) Date Activated Date Inactivated Comments 06/17/2024 9:07 AM Care Teams Network Control Operator Relationship Specialty Start Date End Date Phys, No Family PCP - General Family Medicine 07/26/23
--- OUTSIDE RECORDS SUMMARY | 2025-07-08 18:39 | XMS_ITS | Patient Health Record ---
Author Organization [facility] Address [address] [place] [address] Care Team Providers Care Line Prep Cook Name Role Phone Claribel Bush Unavailable [phone] Migration, Provider Unavailable Unavailable Reason For Referral No Information Medications Medication SIG (Take, Route, Frequency, Duration) Notes Start Date End Date Status clomiPRAMINE HCl 25 MG Oral 05/06/2024 Active clomiPRAMINE HCl 50 MG Oral 05/06/2024 Active Anafranil *Pick strength-form from Farmol for eRX* 05/06/2024 Active clomiPRAMINE HCl 75 MG Oral 05/06/2024 Active ARIPiprazole 10 MG Oral 05/06/2024 Active Rexulti 0.5 MG Oral 05/06/2024 Acti ve Venlafaxine HCl ER 37.5 MG Oral 05/06/2024 Active Venlafaxine HCl ER 75 MG Oral 05/06/2024 Active Venlafaxine HCl ER 150 MG Oral 05/06/2024 Active Divalproex Sodium 500 MG Oral 05/06/2024 Active LORazepam 0.5 MG Oral 05/06/2024 Ac tive Divalproex Sodium 250 MG Oral 05/06/2024 Active LORazepam 1 MG Oral 05/06/2024 Acti ve Divalproex Sodium ER 500 MG Oral 05/06/2024 Active Divalproex Sodium ER 250 MG Oral 05/06/2024 Active busPIRone HCl 5 MG Oral 05/06/2024 Active Problems Problem Type SNOMED Code ICD Code Onset Dates Problem Status W/U Status Risk Notes Problem 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) Unspecified abnormal involuntary movements (R25.9) Active confirmed Encounters Encounter Location Date Provider Diagnosis [facility] [address] [place] [address] 02/06/2025 Provider Migration [facility] [place] [address] [place] [address] 02/07/2025 Provider Migration Plan Of Treatment No Information Insurance Providers Payer Name Payer Address Payer Phone Subscriber Number Group Number Insured Name Patient Relationship to Insured Coverage Start Date Coverage End Date [facility] [employer] Plans [address] [place] [address] [phone] [id number] ISRAEL YANEZ Self - patient is the insured
--- OUTSIDE RECORDS SUMMARY | 2025-07-08 18:39 | XMS_ITS | Patient Health Record ---
Author Organization [facility] Address [address] [address], [place] [address] Care Team Providers Care Alumni Relations Coordinator Name Role Phone No, Referring Dr Primary Care Provider SANTIAGO Gudino Unavailable [phone] Allergies No Known Allergies Reason For Referral No Information Medications Medication SIG (Take, Route, Fr equency, Duration) Notes Start Date End Date Status clonazePAM 0.5 MG 1 tablet Orally Once a day Active Venlafaxine HCl 75 MG 1 tablet with food Orally Once a day Active Depakote ER 500 MG 1 tablet Orally Once a day Active Anafranil 50 MG 2 capsule at bedtime Orally Once a day Active Abilify 10 MG 1 tablet Orally Once a day Active Social History Tobacco Use: Social History Observation Description Date Details (start date - stop date) Never Smoker NA - NA Tobacco use other than smoking: Question Answer Notes Are you an other tobacco user? No Tobacco Control (Standard) Question Answer Notes Tobacco use: Nonsmoker Problems Problem Type SNOMED Code ICD Code Onset Dates Problem Status W/U Status Risk Notes Problem Essential tremor (693481745) Essential tremor (G25.0) Active confirmed Problem Depression (065540732) Depression (G47.09) Active confirmed Problem Anxiety (17485221) Anxiety (F43.23) Active confirmed Problem Involuntary movement (finding) (421175528) Involuntary movements (R25.9) Active confirmed Problem Tremor (61235484) Tremor (R25.1) Active confirmed Problem Sleep disturbance (08975091) Sleep disturbance (G47.9) Active confirmed Problem Mixed anxiety and depressive disorder (116059354) Mixed anxiety and depressive disorder (F41.8) Active confirmed Plan Of Treatment No Information Insurance Providers Payer Name Payer Address Payer Phone Subscriber Number Group Number Insured Name Patient Relationship to Insured Coverage Start Date Coverage End Date [employer] A[employer] POB [id number] [address] [place] [address] [id number] [phone] Chivo Hardwick Child - Insured does not have Financial Responsibility (includes legally adopted child) Medical (General) History Medical History History ICD Code Anxiety F43.23 Depression G47.09 Sleep disturbance G47.9 Hospitalization History Reason Date(Month/Year) mental health 2023
--- NOTE | 2025-07-08 18:56 | PC.ADMIT ---
Addendum entered by Tomasa Guidry RN 07/08/25 18:58: [facility] ED called-[facility] controlled medications are still stored in their safe. They can be picked up when he discharges from here. Staff communication order placed. Original Note: Hans anderson? was BIBA from [facility] for concerns for SI.? He is alert, calm, and appears stated age. He is oriented x4. Ishan was cooperative with skin and safety checks. His skin check is unremarkable. He reports ?I don't feel like my meds are working anymore?, ?I was feeling like I was getting worse and would eventually want to hurt myself if I didn't go to the ED?. He signed a CV with Kevin Dominguez NP. 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 He states his mom (a therapist) is his greatest support. He has had psychiatric services for a long time. He is an autistic person. His last IPLOC was in October according to him but over a year ago according to the crisis assessment. He has struggled with anxiety and depression for a long time. He has done genotesting for his medications. Physically, he is being followed by a urologist and had a cystoscopy over the summer while back in [place]. He has bladder pain and receives medication for comfort. He reports night terrors for several months, bilateral fine hand tremors for ?years?, he endorses an increased need for sleep 10-13 hours sometimes, but doesn't relate it to increased depression. He does not drink, smoke,vape or use any substances. He is on multiple prescriptions and takes meds daily but none were given while at [facility]. ?I?m surprised I am doing as well as I am?. He currently denies urges to harm self or others and any visual or perceptual disturbances. This nurse called S pharmacy at [facility] but had to leave a message and they did not call back to verify meds. Meds were checked against the external medication list. Ravi Allan NP aware and is working on things. He is desiring a valproic acid level martha. He is agreeable to signing ROIs for mom and aunt and uncle. He was oriented to unit and routine, ordered food and shown to his room.?
[2025-07-08 20:00] VITALS: BP 131/81; PULSE 109; RESP 16; TEMP 36.2; O2SAT 98
[2025-07-08] MEDS: ALFUZOSIN 10 MG 10 EACH PO (21:15)
[2025-07-08] MEDS: Divalproex Sodium ER 250 MG TAB.ER.24H PO (21:17)
[2025-07-08] MEDS: Flu Vacc TS2025-26(6mo up)/PF 0.5 ML SYRINGE IM (21:27)
[2025-07-09 08:00] VITALS: BP 119/63; PULSE 96; RESP 16; TEMP 35.6; O2SAT 98
--- NOTE | 2025-07-09 08:12 | HO.PM.IMCN ---
History of Present Illness Data of Consult Service Date: 07/09/25 Primary Care Provider: Unknown Physician HPI Reason for consult: Medical consult 25-year-old male with a past medical history of depression with suicide ideation. Patient also reports that he has a urological problem that he is followed by a urologist in [place] for. Lab work was within normal limits, no leukocytosis, no anemia, no electrolyte imbalances. On exam he denies any acute medical concerns. Denies shortness of breath, dizziness, lightheadedness, dysuria, headaches, visual changes, or any other concerning symptoms. Review of Systems Review of Systems: Denies any shortness of breath, chest pain, dizziness, lightheadedness, abdominal pain or discomfort, nausea vomiting or diarrhea PMFSH Social History Household Members: None and Other Housing: Other Do you presently have visiting nurse or other home services: No Patient Tobacco Use Status: Never used Tobacco e-Cigarette/Vaping Use: Never Used Currently Displaying Signs/Symptoms of Drug Intoxication Withdrawal: No Have you been hit, kicked, punched, or otherwise hurt by someone within the past year? If so, by whom?: No Do you feel safe in your current relationship?: No Current Relationship Is there a partner from a previous relationship who is making you feel unsafe now?: No Are you made to feel afraid or neglected: No Advance Directives: No Advance Directives Information Provided: No Do you have thoughts of harming others: None Do you have a plan to hurt others: No Plan Recently lost weight without trying: No Eating poorly because of decreased appetite: No Nutrition Risks: No Nutritional Risk Poor oral hygiene: No Meds Allergies Allergy/AdvReac Type Severity Reaction Status Date / Time No Known Allergies Allergy Verified 07/08/25 15:51 Active Medications: Current Medications Acetaminophen (Acetaminophen 325 Mg Tablet) 650 mg PO Q6H PRN PRN Reason: Headache/Pain, Scale 1-10 Al Hydroxide/Mg Hydroxide (Magnesium Hydrox/Alum Hydrox 30 Ml Oral.Susp) 30 ml PO Q6H PRN PRN Reason: Heartburn/Nausea Clomipramine HCl (Clomipramine Hcl 25 Mg Capsule) 75 mg PO BEDTIME [facility] Last Admin: 07/08/25 21:17 Dose: 75 mg Clomipramine HCl (Clomipramine Hcl 25 Mg Capsule) 100 mg PO DAILY [facility] Divalproex Sodium (Divalproex Sodium Er 250 Mg Tab.Er.24h) 250 mg PO BEDTIME [facility] Last Admin: 07/08/25 21:17 Dose: 250 mg Divalproex Sodium (Divalproex Sodium Er 500 Mg Tab.Er.24h) 500 mg PO BEDTIME [facility] Last Admin: 07/08/25 21:27 Dose: 500 mg Fluticasone Propionate (Fluticasone Propionate Nasal 16 Gm Okay) 1 spray NOSTRIL-B DAILY [facility] Gabapentin (Gabapentin 300 Mg Capsule) 300 mg PO TID PRN PRN Reason: severe anxiety Hydroxyzine HCl (Hydroxyzine Hcl 50 Mg Tablet) 50 mg PO TID PRN PRN Reason: Mild anxiety Lurasidone HCl (Lurasidone Hcl 20 Mg Tablet) 60 mg PO BEDTIME [facility] Last Admin: 07/08/25 21:16 Dose: 60 mg Magnesium Hydroxide (Milk Of Magnesia 30 Ml Oral.Susp) 30 ml PO DAILY PRN PRN Reason: Constipation Nicotine (Nicotine 21 Mg Patch.Td24) 21 mg TRANSDERMA DAILY PRN PRN Reason: nicotine craving Nicotine Polacrilex (Nicotine Polacrilex 2 Mg Gum) 2 mg BUCCAL Q2H PRN PRN Reason: Nicotine Cravings Nitrofurantoin Macrocrystals (Nitrofurantoin Monohyd/M-Cryst 100 Mg Capsule) 100 mg PO DAILY [facility] Patient Own Medication ( Alfuzosin 10 Mg Tablet Extended Release 24 Hr) 10 mg PO BEDTIME [facility] Last Admin: 07/08/25 21:15 Dose: 10 mg Olanzapine (Olanzapine 5 Mg Tablet) 5 mg PO BID PRN PRN Reason: agitation Paroxetine HCl (Paroxetine Hcl 30 Mg Tablet) 30 mg PO DAILY [facility] Propranolol HCl (Propranolol Hcl 10 Mg Tablet) 10 mg PO TID [facility]; Protocol On Hold: 07/08/25 21:00 Trazodone HCl (Trazodone Hcl 50 Mg Tablet) 50 mg PO BEDTIME MRX1 PRN PRN Reason: Insomnia Home Medications ?Medication ?Instructions ?Recorded ?Confirmed ?Last Taken ?Type alfuzosin 10 mg tablet,extended 10 mg PO BEDTIME 07/08/25 07/08/25 Unknown History release 24 hr clomipramine 50 mg capsule 100 mg PO BEDTIME 07/08/25 07/08/25 Unknown History divalproex 250 mg tablet,extended 250 mg PO BEDTIME 07/08/25 07/08/25 Unknown History release 24 hr divalproex 500 mg tablet,extended 500 mg PO DAILY 07/08/25 07/08/25 Unknown History release 24 hr gabapentin 300 mg capsule 300 mg PO TID 07/08/25 07/08/25 Unknown History hydroxyzine HCl 50 mg tablet 50 mg PO TID 07/08/25 07/08/25 Unknown History lurasidone 60 mg tablet 60 mg PO DAILY 07/08/25 07/08/25 Unknown History nitrofurantoin 1 cap PO DAILY 07/08/25 07/08/25 Unknown History monohydrate/macrocrystals 100 mg capsule paroxetine HCl 30 mg tablet 30 mg PO DAILY 07/08/25 07/08/25 Unknown History propranolol 10 mg tablet 10 mg PO TID 07/08/25 07/08/25 Unknown History Physical Exam Vital Signs and Narrative: Vital Signs: Last Vital Signs Temp 97.2 F 07/08/25 20:00 Pulse 109 H 07/08/25 20:00 Resp 16 07/08/25 20:00 BP 131/81 07/08/25 20:00 Pulse Ox 98 07/08/25 20:00 O2 Del Method Room Air 07/08/25 20:00 BMI result Body Mass Index 33.5 CONST: Alert and oriented, in NAD. Well nourished HEENT: Normocephalic, atraumatic, MMM, Eyes clear, Neck supple RESP: Lungs clear, RRR even and regular HEART:,RRR, S1, S2. No edema GI:Abdomen Soft NT, ND. + BS times four :Deferred SKIN: Warm dry and intact, no visible lesions or rashes NEURO:CN II-XII Intact bilaterally, Sensation intact. 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 He is admitted here for mood stabilization. Depression/suicidal ideation Treatment per psychiatric team Urinary retention Followed by urologist in [place] and has had extensive workup including cystoscopy Continue Alfuzosin and prophylactic Macrobid daily Obtain UA C&S only if patient presents with symptoms localizing to the urinary tract including dysuria, hematuria, fever, chills. Thank you for allowing me to participate in the care of this patient. Will follow as needed, please notify medical provider with any changes in condition or concerns.
[2025-07-09 08:52] LABS: Hemoglobin A1C 142.5913 umol/L; Total Hemoglobin (HGBA1C) 3960.5191 umol/L
[2025-07-09 09:05] LABS: Alanine Aminotransferase 40 U/L (0-40); Albumin Level 5.0 g/dL (3.5-5.0); Alkaline Phosphatase 79 U/L (39-117); Anion Gap 12 (12-20); Aspartate Amino Transferase 25 U/L (5-37); Blood Urea Nitrogen 14 mg/dL (9-16); Calcium 9.4 mg/dL (8.4-10.2); Carbon Dioxide 29 mmol/L (22-29); Chloride 105 mmol/L (96-108); Cholesterol 204 mg/dL (<200); Creatinine Clr Calc Pharmacy 164.2; Estimated Glomerular Filt Rate > 60; HDL Cholesterol 54 mg/dL (>40); Potassium 4.5 mmol/L (3.3-5.1); Sodium 141 mmol/L (135-145); Total Protein 7.6 g/dL (6.5-8.0); Triglycerides 117 mg/dL (<150)
[2025-07-09 09:21] LABS: Free T4 (Free Thyroxine) 1.00 ng/dL (0.71-1.85); Thyroid Stimulating Hormone 1.62 uIU/mL (0.32-4.0)
--- NOTE | 2025-07-09 09:24 | HO.PSYADMNOT ---
HPI Date of Service: 07/09/25 Chief Complaint: SI Sources of Information: patient interviewed, chart reviewed and crisis/core team assessment reviewed HPI Subjective Notes: Cannon Warning and Conditional Voluntary Healthcare Proxy: No Guardianship: No Medical Problems Affecting Mental Status: No Narrative: Per RELIGIOUS RITUAL SLAUGHTERER crisis intake: Patient was BIBA to [facility] ED from [facility] after reporting SI. Report increasing in anxiety and depression. patient has hard time articulating his feelings during assessment. Collateral done in the ED with mother- Zoila at [phone]: Per mom, patient has been in and out of hospital and has history of 2 residential programs. Report that patient is on heavy duty medications and reports he is tired all the time and do not feel good when he takes them. Patient saw the counseling center at [facility] in the morning yesterday and asked to go to the hospital. Staff at [facility] stated that he was disoriented and scared during the 2nd visit to see them On M5: Patient met with this provider at 11:00 and then have the social work manager to joint came for psychiatric assessment. We spend 1.15 hour for the assessment taling about medication trials to figure out which ones are working and which are not. Patient able to state that he was seeing the counseling from [facility] due to feeling overwhelmed, not feeling well the morning when he woke up for some classes. Report increasing crying spells, always slept like 13 to 14 hours a day for the past couple of days which is not normal for him. Reports that he always needing a lot of sleep and back pain but it got worse lately. He feels medication was all messed up, he got scared and overwhelmed but to not having suicidal thoughts. He does not want to get to that point, therefore, he comes to the counseling center from school. He also reports trouble focusing, increased depression mostly in the morning, and had negative self thoughts. Denies legal issue. Denies substance use. Currently is a student and not working. Reports mom had mental illnesses of Bipolar, that mom also was in and out of the hospital as well, report maternal grandfather having substance induced issues. Patient himself denies any substance use. No cigarettes or marijuana smoking. No alcohol intake. Trauma history: He feel neglect and feels emotional distress, was bullying at school. History of 10 hospitalizations since 2022 as an adult. Reasons for those admission was not happy feeling, have some spiritual trauma, negative thoughts about himself, feel like he is a sinner. Last admission was in June 2024 where he discharge from residential. History of [address] [facility] in [place] and and another time. Denies SI/SIB/HI/AVH/AVH. Reports history of having suicidal thoughts with last thoughts was in 2023, denies suicide attempt history. Reports over slept and was screaming at night. Appetite is fine. Reports increasing depression anxiety, crying more a lot lately. Feel like medication is not working the way it was. Reports no medication change. We have a long discussion regarding medication trials. He was given 1 vaccine Focalin Adderall and Concerta for ADHD but they are either having side effects are not working. He can not tell exactly what reaction was. He also on medication for OCD, he has nighttime rituals which is better now. He also having OCD on checking on his items in his pocket and organizing stuff. Patient also has history of taking Abilify and Rexulti. Rexulti was working but due to the insurance, patient was not able to continue. Reports current medication regimens was working and he has doing well whole semester of last year but not sure what is going on that led into him not function normally. Patient describes some I suspect some EPS-akathisia but not observed during assessment. Patient also reports dry mouth as side effects of medication. We will continue to monitor and have patient to notify staffing if that is continued happening. Patient has psychiatrist and therapist. His own psychiatrist and therapist is in [place] which he can not work with them why he is in [place]. warm in worker will work with patient but advised patient to talk to the psychiatrist if he does not want continue the services, then the outpatient provider can refer him to a new one. Reports he has been working with a speech therapist for stuttering. He has not-menstruate stuttering. Diagnoses: History of ADHD, OCD, MDD. Autism and PTSD. Discussed with patient regarding propranolol for EPS. We will rechecked Depakote level on Saturday, and he was not given a dose the night before coming to [facility]. Reports he has been taking medication. Patient is anxious, depresssed and overwhelmed. Hhe is smart and knowledgeable regarding treatment history, and medication trials. He is overwhelmed, could have some OCD ADHD component. Not observed during the assessment but patient reports he has some involuntary movement which is ongoing. Reported that he talked to someone and that how the propranolol was started which he was not started yet. He agrees to try it to see if is helpful. For dry mouth, I also give him p.r.n. at artificial saliva spray. We will continue with Depakote extended release 750 mg which I suspect is [id number]. We will check Depakote level on Saturday. Titration as needed to therapeutic dose. Continue with Latuda 60 mg, propranolol 10 t.i.d, Clomipramine total of 175 a day for OCD. He also taking medication bladder issues, and on daily antibiotic daily Macrobid 100 mg per outpatient provider/PCP. Past Psychiatric History: 2 residential programs for one month each , inpatient at [facility] and in [facility]. Most recent discharged from residential Sep 2024. Hx of 2 PHP admission No Detox or respite. Medical Evaluation Reviewed: Hospitalist Eval Pending [facility] Narrative: Issue with Bladder. Narrative: No surgical issues Family History: Mom has mental health issues. Grandfather from mom has some substance issues. Denies family suicide attempts Social History: He is single, never , No children. From [place], is a student at [employer] - second semester. Substance History: Denies Trauma History: Being neglect and was being bullied when was younger Diagnostics Vital Signs (24Hr): Vital Signs - 24 hr 07/08/25 16:02 07/08/25 20:00 07/09/25 08:00 Temperature 97.2 F 97.2 F 96.1 F L Pulse Rate 100 109 H 96 Respiratory Rate 16 16 16 Blood Pressure 118/72 131/81 119/63 Pulse Oximetry 100 98 98 Oxygen Delivery Method Room Air Room Air BMI result Body Mass Index 33.5 Labs 07/09/25 08:26 Labs: Laboratory Results - last 48 hr 07/09/25 08:26 Sodium 141 Potassium 4.5 Chloride 105 Carbon Dioxide 29 Anion Gap 12 BUN 14 Creatinine 0.93 Estim Creat Clear Calc 164.2 Estimated GFR > 60 Random Glucose 83 Estimat Average Glucose 108 Hemoglobin A1c % 5.4 Calcium 9.4 Total Bilirubin 0.4 AST 25 ALT 40 Alkaline Phosphatase 79 Total Protein 7.6 Albumin 5.0 Triglycerides 117 Cholesterol 204 H LDL Cholesterol, Calc 127 H HDL Cholesterol 54 TSH 1.62 Free T4 1.00 Meds/Allergies Meds Home Medications ?Medication ?Instructions ?Recorded ?Confirmed ?Type alfuzosin 10 mg tablet,extended 10 mg PO BEDTIME 07/08/25 07/08/25 History release 24 hr clomipramine 50 mg capsule 100 mg PO BEDTIME 07/08/25 07/08/25 History divalproex 250 mg tablet,extended 250 mg PO BEDTIME 07/08/25 07/08/25 History release 24 hr divalproex 500 mg tablet,extended 500 mg PO DAILY 07/08/25 07/08/25 History release 24 hr gabapentin 300 mg capsule 300 mg PO TID 07/08/25 07/08/25 History hydroxyzine HCl 50 mg tablet 50 mg PO TID 07/08/25 07/08/25 History lurasidone 60 mg tablet 60 mg PO DAILY 07/08/25 07/08/25 History nitrofurantoin 1 cap PO DAILY 07/08/25 07/08/25 History monohydrate/macrocrystals 100 mg capsule paroxetine HCl 30 mg tablet 30 mg PO DAILY 07/08/25 07/08/25 History propranolol 10 mg tablet 10 mg PO TID 07/08/25 07/08/25 History Allergies Allergies Allergy/AdvReac Type Severity Reaction Status Date / Time No Known Allergies Allergy Verified 07/08/25 15:51 Mental Status Exam Mental Status Exam Narrative: Patient is alert and oriented; behavior is cooperative, friendly with mild to moderate anxiety and depression; patient is not in distress; dressed in hospital attire with kempt hair and adequate hygiene; mood is described as calmer now but depressed and anxious, overwhelmed, and affect congruent; eye contact appropriate; Speech is normal rate, volume and prosody and not pressured; not stuttering,no psychomotor agitation/retardation present; thought process is organized and goal directed; Thought content is WNL, pertinent to relevant topics and without any delusional content, paranoid ideation or grandiosity; denies any SI/SIB/HI. Denies AH and there is no evidence of perceptual disturbance. Patient's insight and judgment poor . Assessment & Plan Assessment & Plan (1) Urinary retention: Status: Acute Code(s): R33.9 - Retention of urine, unspecified (2) PTSD (post-traumatic stress disorder): Status: Acute Code(s): F43.10 - Post-traumatic stress disorder, unspecified (3) OCD (obsessive compulsive disorder): Status: Acute Code(s): F42.9 - Obsessive-compulsive disorder, unspecified (4) ADHD (attention deficit hyperactivity disorder): Status: Acute Code(s): F90.9 - Attention-deficit hyperactivity disorder, unspecified type (5) MDD (major depressive disorder): Status: Acute Code(s): F32.9 - Major depressive disorder, single episode, unspecified (6) Autism: Status: Acute Code(s): F84.0 - Autistic disorder Plan HPI: Patient is a 25 single Causation Spanish speaking male with hx of Urinary retention, ADHD, OCD, autism, MDD and PTSD who was BIBA to [facility] ED from [facility] after reporting SI. Report increasing in anxiety and depression. patient has hard time articulating his feelings during assessment. Increasing in depression, anxiety, feeling overwhelmed, cryring spell and over sleep for 13-14 hours/day which is not normal his patterns, poor concentration, not able to focus for school, Feeling medication are not working the same way as he was able to complete last semester under same regimens. Formulation/clinical reasoning: Increase stress from school, able to seek out help before sympstoms got worse or having SI, increased in anxiety and depression, poor concentration, poor energy, excessive sleeping 13-14 hours/day, increasing crying spells. Hx Urinary retention, ADHD, OCD, autism, MDD and PTSD. Compliant with meds but feel like meds are not working. Given above information, patient will be benefit in restrictive environment for his own safety, medication management/adjustment, and refer patient back to outpatient psychiatric health services at [facility]. We will assist patient transition into the new providers if needed. Hospital course: 07/09/25: Paxil 30 mg daily in the morning for depression. Latuda 60 mg at bedtime for mood: Educate patient to eat snack before taking medication. Depakote extended release 750 mg daily at bedtime. We will check level on Saturday. Titrate up to therapeutic dose if needed to. Due to the excessive sleepiness, we will continue with current dose. If tolerate well we can increase up to therapeutic dose. Clomapramind total of 175mg daily in divided dose. Propranolol 10 mg t.i.d.: Patient was prescribed by outpatient provider, not started yet before coming in here. We will monitor for EPS/akathisia. Continue with home for medication for urinary retention. Monitor for dry mouth: Artificial saliva spray p.r.n. available. Plan Patient on 15 minute checks for safety. Admitted to . CV. Work with treatment team to do collateral. SW will do calleral with family- mom and reach out to school staff/OP provider for discharge plan. Patient does not like his current medication prescriber- feeling like he is not helpful. Medication management. Seen by Hospitalist for H+P on 07/09/25: Patient educated on: diagnosis, medication risk/benefits and therapeutic strategies Informed Consent: understands Reason for continued inpatient stay Substantial Risk for: med/psych decompensation Statement Statement: I have reviewed the history and physical and performed a pertinent examination on my patient. No changes have occurred unless specified. If the History and Physical was not performed prior to admission, the Hospitalist's service will be consulted for completing the admission physical. Time Spent With Patient Time: Total time managing care of this patient today ____ minutes.
[2025-07-09 14:31] VITALS: BP 136/84; PULSE 107; O2SAT 97
[2025-07-09 20:00] VITALS: BP 125/72; PULSE 107; RESP 15; TEMP 36.5; O2SAT 99
[2025-07-09] MEDS: Divalproex Sodium ER 250 MG TAB.ER.24H PO (20:23)
[2025-07-09] MEDS: ALFUZOSIN 10 MG 10 EACH PO (20:24)
--- NOTE | 2025-07-10 07:42 | HO.PSYCHPN ---
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 with inc dep and inc sleep doing better- last pm dec sleep , due to night terrors- started propranlol no untoward effect- unclear if he has been able to get a sleep study , reports hx repeated hospitalizations- Medication Compliance: Yes Side effects from medications: No Attending Groups: Yes Review of Systems Acute medical concerns: No Medical Review of Systems: unchanged Mental Status Exam Mental Status Exam Narrative: casually dressed, and kempt Patient Orientation: Person, Place, Time and Situation Level of Consciousness: Awake Patient Behavior: Appropriate and Cooperative Mood Description: Calm Affect Description: Blunted Patient Cognition Impaired: No Ability to Follow Directions: Good Speech Pattern: Clear Hallucinations: None Delusions: Not Present Thought Process: Intact and Goal Oriented Thought Content: positive for Intact and positive for Logical Depressive Symptoms: Difficulty Sleeping (night terros) and Loss of Energy Judgement: Fair Diagnostics Vital Signs (24Hr): Vital Signs - 24 hr 07/09/25 08:00 07/09/25 14:31 07/09/25 20:00 Temperature 96.1 F L 97.7 F Pulse Rate 96 107 H 107 H Respiratory Rate 16 15 Blood Pressure 119/63 136/84 125/72 Pulse Oximetry 98 97 99 Oxygen Delivery Method Room Air Room Air BMI result Body Mass Index 33.5 Labs 07/09/25 08:26 Labs: Laboratory Results - last 48 hr 07/09/25 08:26 Sodium 141 Potassium 4.5 Chloride 105 Carbon Dioxide 29 Anion Gap 12 BUN 14 Creatinine 0.93 Estim Creat Clear Calc 164.2 Estimated GFR > 60 Random Glucose 83 Estimat Average Glucose 108 Hemoglobin A1c % 5.4 Calcium 9.4 Total Bilirubin 0.4 AST 25 ALT 40 Alkaline Phosphatase 79 Total Protein 7.6 Albumin 5.0 Triglycerides 117 Cholesterol 204 H LDL Cholesterol, Calc 127 H HDL Cholesterol 54 TSH 1.62 Free T4 1.00 Medications Medications Current Medications Acetaminophen (Acetaminophen 325 Mg Tablet) 650 mg PO Q6H PRN PRN Reason: Headache/Pain, Scale 1-10 Al Hydroxide/Mg Hydroxide (Magnesium Hydrox/Alum Hydrox 30 Ml Oral.Susp) 30 ml PO Q6H PRN PRN Reason: Heartburn/Nausea Clomipramine HCl (Clomipramine Hcl 25 Mg Capsule) 75 mg PO BEDTIME [facility] Last Admin: 07/09/25 20:22 Dose: 75 mg Clomipramine HCl (Clomipramine Hcl 25 Mg Capsule) 100 mg PO DAILY [facility] Last Admin: 07/09/25 09:19 Dose: 100 mg Divalproex Sodium (Divalproex Sodium Er 250 Mg Tab.Er.24h) 250 mg PO BEDTIME [facility] Last Admin: 07/09/25 20:23 Dose: 250 mg Divalproex Sodium (Divalproex Sodium Er 500 Mg Tab.Er.24h) 500 mg PO BEDTIME [facility] Last Admin: 07/09/25 20:23 Dose: 500 mg Fluticasone Propionate (Fluticasone Propionate Nasal 16 Gm [place]) 1 spray NOSTRIL-B DAILY [facility] Last Admin: 07/09/25 09:17 Dose: 1 spray Gabapentin (Gabapentin 300 Mg Capsule) 300 mg PO TID PRN PRN Reason: severe anxiety Hydroxyzine HCl (Hydroxyzine Hcl 50 Mg Tablet) 50 mg PO TID PRN PRN Reason: Mild anxiety Lurasidone HCl (Lurasidone Hcl 20 Mg Tablet) 60 mg PO BEDTIME [facility] Last Admin: 07/09/25 20:23 Dose: 60 mg Magnesium Hydroxide (Milk Of Magnesia 30 Ml Oral.Susp) 30 ml PO DAILY PRN PRN Reason: Constipation Nicotine (Nicotine 21 Mg Patch.Td24) 21 mg TRANSDERMA DAILY PRN PRN Reason: nicotine craving Nicotine Polacrilex (Nicotine Polacrilex 2 Mg Gum) 2 mg BUCCAL Q2H PRN PRN Reason: Nicotine Cravings Nitrofurantoin Macrocrystals (Nitrofurantoin Monohyd/M-Cryst 100 Mg Capsule) 100 mg PO DAILY [facility] Last Admin: 07/09/25 09:18 Dose: 100 mg Patient Own Medication ( Alfuzosin 10 Mg Tablet Extended Release 24 Hr) 10 mg PO BEDTIME [facility] Last Admin: 07/09/25 20:24 Dose: 10 mg Olanzapine (Olanzapine 5 Mg Tablet) 5 mg PO BID PRN PRN Reason: agitation Paroxetine HCl (Paroxetine Hcl 30 Mg Tablet) 30 mg PO DAILY [facility] Last Admin: 07/09/25 09:19 Dose: 30 mg Propranolol HCl (Propranolol Hcl 10 Mg Tablet) 10 mg PO TID [facility]; Protocol Last Admin: 07/09/25 20:23 Dose: 10 mg Saliva Substitute (Dry Mouth [place] 60 Ml [place]) 1 spray MUCOUS MEM Q2H PRN PRN Reason: Dry Mouth Trazodone HCl (Trazodone Hcl 50 Mg Tablet) 50 mg PO BEDTIME MRX1 PRN PRN Reason: Insomnia Allergies Allergies Allergy/AdvReac Type Severity Reaction Status Date / Time No Known Allergies Allergy Verified 07/08/25 15:51 Assessment & Plan Assessment & Plan (1) Urinary retention: Status: Acute Code(s): R33.9 - Retention of urine, unspecified (2) PTSD (post-traumatic stress disorder): Status: Acute Code(s): F43.10 - Post-traumatic stress disorder, unspecified (3) OCD (obsessive compulsive disorder): Status: Acute Code(s): F42.9 - Obsessive-compulsive disorder, unspecified (4) ADHD (attention deficit hyperactivity disorder): Status: Acute Code(s): F90.9 - Attention-deficit hyperactivity disorder, unspecified type (5) MDD (major depressive disorder): Status: Acute Code(s): F32.9 - Major depressive disorder, single episode, unspecified (6) Autism: Status: Acute Code(s): F84.0 - Autistic disorder Plan HPI: Patient is a 25 single Causation Venezuelan speaking male with hx of Urinary retention, ADHD, OCD, autism, MDD and PTSD who was BIBA to [facility] ED from [facility] after reporting SI. Report increasing in anxiety and depression. patient has hard time articulating his feelings during assessment. Increasing in depression, anxiety, feeling overwhelmed, cryring spell and over sleep for 13-14 hours/day which is not normal his patterns, poor concentration, not able to focus for school, Feeling medication are not working the same way as he was able to complete last semester under same regimens. Formulation/clinical reasoning: Increase stress from school, able to seek out help before sympstoms got worse or having SI, increased in anxiety and depression, poor concentration, poor energy, excessive sleeping 13-14 hours/day, increasing crying spells. Hx Urinary retention, ADHD, OCD, autism, MDD and PTSD. Compliant with meds but feel like meds are not working. Given above information, patient will be benefit in restrictive environment for his own safety, medication management/adjustment, and refer patient back to outpatient psychiatric health services at [facility]. We will assist patient transition into the new providers if needed. Hospital course: 07/09/25: Paxil 30 mg daily in the morning for depression. Latuda 60 mg at bedtime for mood: Educate patient to eat snack before taking medication. Depakote extended release 750 mg daily at bedtime. We will check level on Saturday. Titrate up to therapeutic dose if needed to. Due to the excessive sleepiness, we will continue with current dose. If tolerate well we can increase up to therapeutic dose. Clomapramind total of 175mg daily in divided dose. Propranolol 10 mg t.i.d.: Patient was prescribed by outpatient provider, not started yet before coming in here. We will monitor for EPS/akathisia. Continue with home for medication for urinary retention. Monitor for dry mouth: Artificial saliva spray p.r.n. available. ctp Plan Patient on 15 minute checks for safety. Admitted to . CV. Work with treatment team to do collateral. SW will do calleral with family- mom and reach out to school staff/OP provider for discharge plan. Patient does not like his current medication prescriber- feeling like he is not helpful. Medication management. Seen by Hospitalist for H+P on 07/09/25: Patient educated on: medication risk/benefits and therapeutic strategies Informed Consent: understands and further education needed Reason for continued inpatient stay Substantial Risk for: rapid decompensation Time Spent With Patient Time: Total time managing care of this patient today ____ minutes.
[2025-07-10 08:46] VITALS: BP 121/72; PULSE 105; RESP 14; TEMP 36; O2SAT 99
[2025-07-10 14:50] VITALS: BP 137/78; PULSE 99
[2025-07-10] MEDS: Dry Mouth Spray 60 ML SPRAY 1 SPRAY MUCOUS MEM (15:10)
[2025-07-10 19:53] VITALS: BP 130/73; PULSE 92; RESP 15; TEMP 36.6; O2SAT 98
[2025-07-10] MEDS: Divalproex Sodium ER 250 MG TAB.ER.24H PO (20:07)
[2025-07-10] MEDS: ALFUZOSIN 10 MG 10 EACH PO (20:15)
--- NOTE | 2025-07-11 08:15 | HO.PSYCHPN ---
Subjective Subjective Date of Service: 07/11/25 Reason For Visit: SI Subjective Notes: Conditional Voluntary Interim History: 25 yo took trazodone last pm so somewhat groggy this am- but no night terrors remembered (also got propranlol last pm as part of tid dosing) Feeling less depressed/ less anxious- denies current si Medication Compliance: Yes Side effects from medications: Yes (mild grogginess this am but able to get up ) Attending Groups: Intermittent Review of Systems Medical Review of Systems: unchanged Mental Status Exam Mental Status Exam Narrative: Sitting up in bed, in el[place] - Patient Orientation: Person, Place, Time and Situation Level of Consciousness: Awake Patient Behavior: Appropriate, Cooperative and Passive Mood Description: Calm Affect Description: Blunted Patient Cognition Impaired: No Ability to Follow Directions: Good Speech Pattern: Clear Hallucinations: None Delusions: Not Present Thought Process: Intact and Goal Oriented Depressive Symptoms: Difficulty Concentrating Judgement: Fair Diagnostics Vital Signs (24Hr): Vital Signs - 24 hr 07/10/25 08:46 07/10/25 14:50 07/10/25 19:53 Temperature 96.8 F 97.9 F Pulse Rate 105 H 99 92 Respiratory Rate 14 15 Blood Pressure 121/72 137/78 130/73 Pulse Oximetry 99 98 Oxygen Delivery Method Room Air BMI result Body Mass Index 33.5 Labs 07/09/25 08:26 Labs: Laboratory Results - last 48 hr 07/09/25 08:26 Sodium 141 Potassium 4.5 Chloride 105 Carbon Dioxide 29 Anion Gap 12 BUN 14 Creatinine 0.93 Estim Creat Clear Calc 164.2 Estimated GFR > 60 Random Glucose 83 Estimat Average Glucose 108 Hemoglobin A1c % 5.4 Calcium 9.4 Total Bilirubin 0.4 AST 25 ALT 40 Alkaline Phosphatase 79 Total Protein 7.6 Albumin 5.0 Triglycerides 117 Cholesterol 204 H LDL Cholesterol, Calc 127 H HDL Cholesterol 54 TSH 1.62 Free T4 1.00 Medications Medications Current Medications Acetaminophen (Acetaminophen 325 Mg Tablet) 650 mg PO Q6H PRN PRN Reason: Headache/Pain, Scale 1-10 Al Hydroxide/Mg Hydroxide (Magnesium Hydrox/Alum Hydrox 30 Ml Oral.Susp) 30 ml PO Q6H PRN PRN Reason: Heartburn/Nausea Clomipramine HCl (Clomipramine Hcl 25 Mg Capsule) 75 mg PO BEDTIME [facility] Last Admin: 07/10/25 20:07 Dose: 75 mg Clomipramine HCl (Clomipramine Hcl 25 Mg Capsule) 100 mg PO DAILY [facility] Last Admin: 07/10/25 08:47 Dose: 100 mg Divalproex Sodium (Divalproex Sodium Er 250 Mg Tab.Er.24h) 250 mg PO BEDTIME [facility] Last Admin: 07/10/25 20:07 Dose: 250 mg Divalproex Sodium (Divalproex Sodium Er 500 Mg Tab.Er.24h) 500 mg PO BEDTIME [facility] Last Admin: 07/10/25 20:07 Dose: 500 mg Fluticasone Propionate (Fluticasone Propionate Nasal 16 Gm [place]) 1 spray NOSTRIL-B DAILY [facility] Last Admin: 07/10/25 08:48 Dose: 1 spray Gabapentin (Gabapentin 300 Mg Capsule) 300 mg PO TID PRN PRN Reason: severe anxiety Hydroxyzine HCl (Hydroxyzine Hcl 50 Mg Tablet) 50 mg PO TID PRN PRN Reason: Mild anxiety Lurasidone HCl (Lurasidone Hcl 20 Mg Tablet) 60 mg PO BEDTIME [facility] Last Admin: 07/10/25 20:08 Dose: 60 mg Magnesium Hydroxide (Milk Of Magnesia 30 Ml Oral.Susp) 30 ml PO DAILY PRN PRN Reason: Constipation Magnesium Oxide (Magnesium Oxide 400 Mg Tablet) 400 mg PO DAILY [facility] Last Admin: 07/10/25 17:54 Dose: 400 mg Multivitamins/Vitamin C (Multivitamin Tablet) 1 tab PO DAILY [facility] Last Admin: 07/10/25 17:54 Dose: 1 tab Nicotine (Nicotine 21 Mg Patch.Td24) 21 mg TRANSDERMA DAILY PRN PRN Reason: nicotine craving Nicotine Polacrilex (Nicotine Polacrilex 2 Mg Gum) 2 mg BUCCAL Q2H PRN PRN Reason: Nicotine Cravings Nitrofurantoin Macrocrystals (Nitrofurantoin Monohyd/M-Cryst 100 Mg Capsule) 100 mg PO DAILY [facility] Last Admin: 07/10/25 08:47 Dose: 100 mg Patient Own Medication ( Alfuzosin 10 Mg Tablet Extended Release 24 Hr) 10 mg PO BEDTIME [facility] Last Admin: 07/10/25 20:15 Dose: 10 mg Olanzapine (Olanzapine 5 Mg Tablet) 5 mg PO BID PRN PRN Reason: agitation Paroxetine HCl (Paroxetine Hcl 30 Mg Tablet) 30 mg PO DAILY [facility] Last Admin: 07/10/25 08:47 Dose: 30 mg Propranolol HCl (Propranolol Hcl 10 Mg Tablet) 10 mg PO TID [facility]; Protocol Last Admin: 07/10/25 20:08 Dose: 10 mg Saliva Substitute (Dry Mouth [place] 60 Ml [place]) 1 spray MUCOUS MEM Q2H PRN PRN Reason: Dry Mouth Last Admin: 07/10/25 15:10 Dose: 1 spray Trazodone HCl (Trazodone Hcl 50 Mg Tablet) 50 mg PO BEDTIME MRX1 PRN PRN Reason: Insomnia Last Admin: 07/10/25 20:08 Dose: 50 mg Allergies Allergies Allergy/AdvReac Type Severity Reaction Status Date / Time No Known Allergies Allergy Verified 07/08/25 15:51 Assessment & Plan Assessment & Plan (1) Urinary retention: Status: Acute Code(s): R33.9 - Retention of urine, unspecified (2) PTSD (post-traumatic stress disorder): Status: Acute Code(s): F43.10 - Post-traumatic stress disorder, unspecified (3) OCD (obsessive compulsive disorder): Status: Acute Code(s): F42.9 - Obsessive-compulsive disorder, unspecified (4) ADHD (attention deficit hyperactivity disorder): Status: Acute Code(s): F90.9 - Attention-deficit hyperactivity disorder, unspecified type (5) MDD (major depressive disorder): Status: Acute Code(s): F32.9 - Major depressive disorder, single episode, unspecified (6) Autism: Status: Acute Code(s): F84.0 - Autistic disorder Plan HPI: Patient is a 25 single Causation Libyan speaking male with hx of Urinary retention, ADHD, OCD, autism, MDD and PTSD who was BIBA to [facility] from [facility] after reporting SI. Report increasing in anxiety and depression. patient has hard time articulating his feelings during assessment. Increasing in depression, anxiety, feeling overwhelmed, cryring spell and over sleep for 13-14 hours/day which is not normal his patterns, poor concentration, not able to focus for school, Feeling medication are not working the same way as he was able to complete last semester under same regimens. Formulation/clinical reasoning: Increase stress from school, able to seek out help before sympstoms got worse or having SI, increased in anxiety and depression, poor concentration, poor energy, excessive sleeping 13-14 hours/day, increasing crying spells. Hx Urinary retention, ADHD, OCD, autism, MDD and PTSD. Compliant with meds but feel like meds are not working. Given above information, patient will be benefit in restrictive environment for his own safety, medication management/adjustment, and refer patient back to outpatient psychiatric health services at [facility]. We will assist patient transition into the new providers if needed. Hospital course: 07/09/25: Paxil 30 mg daily in the morning for depression. Latuda 60 mg at bedtime for mood: Educate patient to eat snack before taking medication. Depakote extended release 750 mg daily at bedtime. We will check level on Saturday. Titrate up to therapeutic dose if needed to. Due to the excessive sleepiness, we will continue with current dose. If tolerate well we can increase up to therapeutic dose. Clomapramind total of 175mg daily in divided dose. Propranolol 10 mg t.i.d.: Patient was prescribed by outpatient provider, not started yet before coming in here. We will monitor for EPS/akathisia. Continue with home for medication for urinary retention. Monitor for dry mouth: Artificial saliva spray p.r.n. available. 07/10/- ctp 07/11 did well with trazodone/propranlol combo for night terrors- I have some concerns about trazodone if pt was xs sleeping at [facility] for now Plan Patient on 15 minute checks for safety. Admitted to . CV. Work with treatment team to do collateral. SW will do calleral with family- mom and reach out to school staff/OP provider for discharge plan. Patient does not like his current medication prescriber- feeling like he is not helpful. Medication management. Seen by Hospitalist for H+P on 07/09/25: Patient educated on: medication risk/benefits Informed Consent: understands Reason for continued inpatient stay Substantial Risk for: rapid decompensation Time Spent With Patient Time: Total time managing care of this patient today ____ minutes.
[2025-07-11 08:50] VITALS: BP 117/71; PULSE 101; RESP 14; TEMP 36.1; O2SAT 99
[2025-07-11 14:47] VITALS: BP 147/76; PULSE 99
[2025-07-11 19:40] VITALS: BP 132/73; PULSE 98; RESP 14; TEMP 36.1; O2SAT 98
[2025-07-11] MEDS: ALFUZOSIN 10 MG 10 EACH PO (20:36)
[2025-07-11] MEDS: Divalproex Sodium ER 250 MG TAB.ER.24H PO (20:36)
[2025-07-12 07:56] VITALS: BP 128/67; PULSE 102; RESP 16; TEMP 36.1; O2SAT 99
--- NOTE | 2025-07-12 09:43 | P.PNPSI_ITS ---
Subjective Subjective Date of Service: 07/12/25 Reason For Visit: SI Interim History: Met with patient; discussed with team; reviewed chart Patient shared that he was never actually suicidal but that prior to this admission he was feeling emotionally overwhelmed, crying all the time, not able to regulate myself.. So he wanted to come into the hospital to make sure it can get worse. Patient notice that he was also sleeping more than usual. Patient can not identify a trigger other than possibly the start of school which was stressful for him last year too (though under different circumstances; patient is now at a new school where he feels much more supported). Patient is overall starting to feel back to his regular self; discussed medication management extensively and right now, patient would like to hold his home medication doses where they are and go up on higher doses if he gets dysregulated again. Patient also wonders whether not he needs to be on Depakote and marketing writer can not find any history of manic behaviors or episodes; however because patient is in the middle of school year, he and marketing writer agree that it is a little risky to make medication changes at this time. Mental Status Exam Mental Status Exam Narrative: Pt is alert and oriented; behavior is cooperative, friendly and calm; patient is not in distress; dressed in hospital attire with unkempt hair but adequate hygiene; mood is described as better and affect congruent; eye contact a little avoidant but overall appropriate; Speech is normal rate, volume and prosody and not pressured; some psychomotor agitation/retardation present; thought process is organized and goal directed; Thought content is on tx; otherwise pertinent to relevant topics and without any delusional content, paranoid ideations or grandiosity; denies any SI/HI. Denies AVH and there is no evidence of perceptual disturbance. Patients insight and judgment appear intact. Diagnostics Vital Signs (24Hr): Vital Signs - 24 hr 07/11/25 14:47 07/11/25 19:40 07/12/25 07:56 Temperature 97.0 F 97 F Pulse Rate 99 98 102 H Respiratory Rate 14 16 Blood Pressure 147/76 H 132/73 128/67 Pulse Oximetry 98 99 Oxygen Delivery Method Room Air BMI result Body Mass Index 33.5 Labs 07/09/25 08:26 Labs: Laboratory Results - last 48 hr 07/12/25 07:30 Valproic Acid 47.5 L Medications Medications Current Medications Acetaminophen (Acetaminophen 325 Mg Tablet) 650 mg PO Q6H PRN PRN Reason: Headache/Pain, Scale 1-10 Al Hydroxide/Mg Hydroxide (Magnesium Hydrox/Alum Hydrox 30 Ml Oral.Susp) 30 ml PO Q6H PRN PRN Reason: Heartburn/Nausea Clomipramine HCl (Clomipramine Hcl 25 Mg Capsule) 75 mg PO BEDTIME [facility] Last Admin: 07/11/25 20:36 Dose: 75 mg Clomipramine HCl (Clomipramine Hcl 25 Mg Capsule) 100 mg PO DAILY [facility] Last Admin: 07/12/25 08:36 Dose: 100 mg Divalproex Sodium (Divalproex Sodium Er 250 Mg Tab.Er.24h) 250 mg PO BEDTIME [facility] Last Admin: 07/11/25 20:36 Dose: 250 mg Divalproex Sodium (Divalproex Sodium Er 500 Mg Tab.Er.24h) 500 mg PO BEDTIME [facility] Last Admin: 07/11/25 20:36 Dose: 500 mg Fluticasone Propionate (Fluticasone Propionate Nasal 16 Gm [place]) 1 spray NOSTRIL-B DAILY [facility] Last Admin: 07/12/25 08:37 Dose: 1 spray Gabapentin (Gabapentin 300 Mg Capsule) 300 mg PO TID PRN PRN Reason: severe anxiety Hydroxyzine HCl (Hydroxyzine Hcl 50 Mg Tablet) 50 mg PO TID PRN PRN Reason: Mild anxiety Lurasidone HCl (Lurasidone Hcl 20 Mg Tablet) 60 mg PO BEDTIME [facility] Last Admin: 07/11/25 20:36 Dose: 60 mg Magnesium Hydroxide (Milk Of Magnesia 30 Ml Oral.Susp) 30 ml PO DAILY PRN PRN Reason: Constipation Magnesium Oxide (Magnesium Oxide 400 Mg Tablet) 400 mg PO BEDTIME [facility] Last Admin: 07/11/25 20:36 Dose: 400 mg Multivitamins/Vitamin C (Multivitamin Tablet) 1 tab PO DAILY [facility] Last Admin: 07/12/25 08:37 Dose: 1 tab Nicotine (Nicotine 21 Mg Patch.Td24) 21 mg TRANSDERMA DAILY PRN PRN Reason: nicotine craving Nicotine Polacrilex (Nicotine Polacrilex 2 Mg Gum) 2 mg BUCCAL Q2H PRN PRN Reason: Nicotine Cravings Nitrofurantoin Macrocrystals (Nitrofurantoin Monohyd/M-Cryst 100 Mg Capsule) 100 mg PO DAILY [facility] Last Admin: 07/12/25 08:36 Dose: 100 mg Patient Own Medication ( Alfuzosin 10 Mg Tablet Extended Release 24 Hr) 10 mg PO BEDTIME [facility] Last Admin: 07/11/25 20:36 Dose: 10 mg Olanzapine (Olanzapine 5 Mg Tablet) 5 mg PO BID PRN PRN Reason: agitation Paroxetine HCl (Paroxetine Hcl 30 Mg Tablet) 30 mg PO DAILY [facility] Last Admin: 07/12/25 08:37 Dose: 30 mg Propranolol HCl (Propranolol Hcl 10 Mg Tablet) 10 mg PO TID [facility]; Protocol Last Admin: 07/12/25 08:36 Dose: 10 mg Saliva Substitute (Dry Mouth [place] 60 Ml [place]) 1 spray MUCOUS MEM Q2H PRN PRN Reason: Dry Mouth Last Admin: 07/10/25 15:10 Dose: 1 spray Trazodone HCl (Trazodone Hcl 50 Mg Tablet) 50 mg PO BEDTIME MRX1 PRN PRN Reason: Insomnia Last Admin: 07/11/25 20:42 Dose: 50 mg Allergies Allergies Allergy/AdvReac Type Severity Reaction Status Date / Time No Known Allergies Allergy Verified 07/08/25 15:51 Assessment & Plan Assessment & Plan (1) Autism: Status: Acute Code(s): F84.0 - Autistic disorder (2) OCD (obsessive compulsive disorder): Status: Acute Code(s): F42.9 - Obsessive-compulsive disorder, unspecified (3) MDD (major depressive disorder): Status: Acute Code(s): F32.9 - Major depressive disorder, single episode, unspecified (4) Urinary retention: Status: Acute Code(s): R33.9 - Retention of urine, unspecified (5) PTSD (post-traumatic stress disorder): Status: Acute Code(s): F43.10 - Post-traumatic stress disorder, unspecified (6) ADHD (attention deficit hyperactivity disorder): Status: Acute Code(s): F90.9 - Attention-deficit hyperactivity disorder, unspecified type Plan HPI: Patient is a 25 single Causation Icelandic speaking male with hx of Urinary retention, ADHD, OCD, autism, MDD and PTSD who was BIBA to [facility] from [facility] after reporting SI. Report increasing in anxiety and depression. patient has hard time articulating his feelings during assessment. Increasing in depression, anxiety, feeling overwhelmed, cryring spell and over sleep for 13-14 hours/day which is not normal his patterns, poor concentration, not able to focus for school, Feeling medication are not working the same way as he was able to complete last semester under same regimens. Formulation/clinical reasoning: Increase stress from school, able to seek out help before sympstoms got worse or having SI, increased in anxiety and depression, poor concentration, poor energy, excessive sleeping 13-14 hours/day, increasing crying spells. Hx Urinary retention, ADHD, OCD, autism, MDD and PTSD. Compliant with meds but feel like meds are not working. Given above information, patient will be benefit in restrictive environment for his own safety, medication management/adjustment, and refer patient back to outpatient psychiatric health services at [facility]. We will assist patient transition into the new providers if needed. Hospital course: 07/09/25: Paxil 30 mg daily in the morning for depression. Latuda 60 mg at bedtime for mood: Educate patient to eat snack before taking medication. Depakote extended release 750 mg daily at bedtime. We will check level on Saturday. Titrate up to therapeutic dose if needed to. Due to the excessive sleepiness, we will continue with current dose. If tolerate well we can increase up to therapeutic dose. Clomapramind total of 175mg daily in divided dose. Propranolol 10 mg t.i.d.: Patient was prescribed by outpatient provider, not started yet before coming in here. We will monitor for EPS/akathisia. Continue with home for medication for urinary retention. Monitor for dry mouth: Artificial saliva spray p.r.n. available. 07/10/- ctp 07/11 did well with trazodone/propranlol combo for night terrors- I have some concerns about trazodone if pt was xs sleeping at [facility]- [facility] for now 07/12 Patient shared that he was never actually suicidal but that prior to this admission he was feeling emotionally overwhelmed, crying all the time, not able to regulate myself.. So he wanted to come into the hospital to make sure it can get worse. Patient notice that he was also sleeping more than usual. Patient can not identify a trigger other than possibly the start of school which was stressful for him last year too (though under different circumstances; patient is now at a new school where he feels much more supported). Patient is overall starting to feel back to his regular self; discussed medication management extensively and right now, patient would like to hold his home medication doses where they are and go up on higher doses if he gets dysregulated again. Patient also wonders whether not he needs to be on Depakote and marketing writer can not find any history of manic behaviors or episodes; however because patient is in the middle of school year, he and marketing writer agree that it is a little risky to make medication changes at this time. -patient asks if he can have a little Ativan, saying that it has helped in the past and he would only use it for panic situations such as this past week -he says OCD and depression seemed to be overall well controlled -patient is eager to get back to school Plan Patient on 15 minute checks for safety. Admitted to . CV. Work with treatment team to do collateral. SW will do calleral with family- mom and reach out to school staff/OP provider for discharge plan. Patient does not like his current medication prescriber- feeling like he is not helpful. Medication management. Seen by Hospitalist for H+P on 07/09/25: Patient educated on: diagnosis, medication risk/benefits and therapeutic strategies Informed Consent: understands Reason for continued inpatient stay Substantial Risk for: stable for discharge and med/psych decompensation Time Spent With Patient Time: Total time managing care of this patient today ____ minutes.
[2025-07-12 15:49] VITALS: BP 130/81; PULSE 101
[2025-07-12 20:00] VITALS: BP 142/87; PULSE 105; RESP 16; TEMP 36.9; O2SAT 99
[2025-07-12 22:11] VITALS: BP 139/82; PULSE 85
[2025-07-12] MEDS: Divalproex Sodium ER 250 MG TAB.ER.24H PO (22:11)
[2025-07-12] MEDS: ALFUZOSIN 10 MG 10 EACH PO (22:18)
[2025-07-13 08:00] VITALS: BP 113/62; PULSE 93; TEMP 36.8; O2SAT 97
--- NOTE | 2025-07-13 09:38 | HO.PSYCHPN ---
Subjective Subjective Date of Service: 07/13/25 Reason For Visit: SI Interim History: met with pt; discussed with team pt remains doing better, mood is good; feels ready to return to school He agrees to keep with current regimen. He reports some intermittent muscle tightening and blurb writer discussed possible EPS/Dystonia and pt agrees to try cogentin. Mental Status Exam Mental Status Exam Narrative: Pt is alert and oriented; behavior is cooperative, friendly and calm; patient is not in distress; dressed in hospital attire with unkempt hair but adequate hygiene; mood is described as good and affect congruent; eye contact overall appropriate; Speech is normal rate, volume and prosody and not pressured; some psychomotor agitation/retardation present; thought process is organized and goal directed; Thought content is on tx; otherwise pertinent to relevant topics and without any delusional content, paranoid ideations or grandiosity; denies any SI/HI. Denies AVH and there is no evidence of perceptual disturbance. Patients insight and judgment appear intact. Diagnostics Vital Signs (24Hr): Vital Signs - 24 hr 07/12/25 15:49 07/12/25 20:00 07/12/25 22:11 Temperature 98.5 F Pulse Rate 101 H 105 H 85 Respiratory Rate 16 Blood Pressure 130/81 142/87 H 139/82 Pulse Oximetry 99 Oxygen Delivery Method Room Air 07/13/25 08:00 Temperature 98.2 F Pulse Rate 93 Respiratory Rate Blood Pressure 113/62 Pulse Oximetry 97 Oxygen Delivery Method Room Air BMI result Body Mass Index 33.5 Labs 07/09/25 08:26 Labs: Laboratory Results - last 48 hr 07/12/25 07:30 Valproic Acid 47.5 L Medications Medications Current Medications Acetaminophen (Acetaminophen 325 Mg Tablet) 650 mg PO Q6H PRN PRN Reason: Headache/Pain, Scale 1-10 Al Hydroxide/Mg Hydroxide (Magnesium Hydrox/Alum Hydrox 30 Ml Oral.Susp) 30 ml PO Q6H PRN PRN Reason: Heartburn/Nausea Clomipramine HCl (Clomipramine Hcl 25 Mg Capsule) 75 mg PO BEDTIME [facility] Last Admin: 07/12/25 22:12 Dose: 75 mg Clomipramine HCl (Clomipramine Hcl 25 Mg Capsule) 100 mg PO DAILY [facility] Last Admin: 07/13/25 08:44 Dose: 100 mg Divalproex Sodium (Divalproex Sodium Er 250 Mg Tab.Er.24h) 250 mg PO BEDTIME [facility] Last Admin: 07/12/25 22:11 Dose: 250 mg Divalproex Sodium (Divalproex Sodium Er 500 Mg Tab.Er.24h) 500 mg PO BEDTIME [facility] Last Admin: 07/12/25 22:10 Dose: 500 mg Fluticasone Propionate (Fluticasone Propionate Nasal 16 Gm Crawley) 1 spray NOSTRIL-B DAILY [facility] Last Admin: 07/13/25 08:44 Dose: 1 spray Gabapentin (Gabapentin 300 Mg Capsule) 300 mg PO TID PRN PRN Reason: severe anxiety Last Admin: 07/12/25 20:10 Dose: 300 mg Hydroxyzine HCl (Hydroxyzine Hcl 50 Mg Tablet) 50 mg PO TID PRN PRN Reason: Mild anxiety Last Admin: 07/12/25 20:09 Dose: 50 mg Lorazepam (Lorazepam 1 Mg Tablet) 1 mg PO BID PRN PRN Reason: emotional dysregulation Lurasidone HCl (Lurasidone Hcl 20 Mg Tablet) 60 mg PO BEDTIME [facility] Last Admin: 07/12/25 22:10 Dose: 60 mg Magnesium Hydroxide (Milk Of Magnesia 30 Ml Oral.Susp) 30 ml PO DAILY PRN PRN Reason: Constipation Magnesium Oxide (Magnesium Oxide 400 Mg Tablet) 400 mg PO BEDTIME [facility] Last Admin: 07/12/25 22:11 Dose: 400 mg Multivitamins/Vitamin C (Multivitamin Tablet) 1 tab PO DAILY [facility] Last Admin: 07/13/25 08:44 Dose: 1 tab Nicotine (Nicotine 21 Mg Patch.Td24) 21 mg TRANSDERMA DAILY PRN PRN Reason: nicotine craving Nicotine Polacrilex (Nicotine Polacrilex 2 Mg Gum) 2 mg BUCCAL Q2H PRN PRN Reason: Nicotine Cravings Nitrofurantoin Macrocrystals (Nitrofurantoin Monohyd/M-Cryst 100 Mg Capsule) 100 mg PO DAILY [facility] Last Admin: 07/13/25 08:44 Dose: 100 mg Patient Own Medication ( Alfuzosin 10 Mg Tablet Extended Release 24 Hr) 10 mg PO BEDTIME [facility] Last Admin: 07/12/25 22:18 Dose: 10 mg Paroxetine HCl (Paroxetine Hcl 30 Mg Tablet) 30 mg PO BEDTIME [facility] Propranolol HCl (Propranolol Hcl 10 Mg Tablet) 10 mg PO TID [facility]; Protocol Last Admin: 07/13/25 08:44 Dose: 10 mg Saliva Substitute (Dry Mouth Crawley 60 Ml Crawley) 1 spray MUCOUS MEM Q2H PRN PRN Reason: Dry Mouth Last Admin: 07/10/25 15:10 Dose: 1 spray Trazodone HCl (Trazodone Hcl 50 Mg Tablet) 50 mg PO BEDTIME MRX1 PRN PRN Reason: Insomnia Last Admin: 07/12/25 22:11 Dose: 50 mg Allergies Allergies Allergy/AdvReac Type Severity Reaction Status Date / Time No Known Allergies Allergy Verified 07/08/25 15:51 Assessment & Plan Assessment & Plan (1) Autism: Status: Acute Code(s): F84.0 - Autistic disorder (2) OCD (obsessive compulsive disorder): Status: Acute Code(s): F42.9 - Obsessive-compulsive disorder, unspecified (3) MDD (major depressive disorder): Status: Acute Code(s): F32.9 - Major depressive disorder, single episode, unspecified (4) Urinary retention: Status: Acute Code(s): R33.9 - Retention of urine, unspecified (5) PTSD (post-traumatic stress disorder): Status: Acute Code(s): F43.10 - Post-traumatic stress disorder, unspecified (6) ADHD (attention deficit hyperactivity disorder): Status: Acute Code(s): F90.9 - Attention-deficit hyperactivity disorder, unspecified type Plan HPI: Patient is a 25 single Causation Telugu speaking male with hx of Urinary retention, ADHD, OCD, autism, MDD and PTSD who was BIBA to [facility] ED from [facility] after reporting SI. Report increasing in anxiety and depression. patient has hard time articulating his feelings during assessment. Increasing in depression, anxiety, feeling overwhelmed, cryring spell and over sleep for 13-14 hours/day which is not normal his patterns, poor concentration, not able to focus for school, Feeling medication are not working the same way as he was able to complete last semester under same regimens. Formulation/clinical reasoning: Increase stress from school, able to seek out help before sympstoms got worse or having SI, increased in anxiety and depression, poor concentration, poor energy, excessive sleeping 13-14 hours/day, increasing crying spells. Hx Urinary retention, ADHD, OCD, autism, MDD and PTSD. Compliant with meds but feel like meds are not working. Given above information, patient will be benefit in restrictive environment for his own safety, medication management/adjustment, and refer patient back to outpatient psychiatric health services at [facility]. We will assist patient transition into the new providers if needed. Hospital course: 07/09/25: Paxil 30 mg daily in the morning for depression. Latuda 60 mg at bedtime for mood: Educate patient to eat snack before taking medication. Depakote extended release 750 mg daily at bedtime. We will check level on Saturday. Titrate up to therapeutic dose if needed to. Due to the excessive sleepiness, we will continue with current dose. If tolerate well we can increase up to therapeutic dose. Clomapramind total of 175mg daily in divided dose. Propranolol 10 mg t.i.d.: Patient was prescribed by outpatient provider, not started yet before coming in here. We will monitor for EPS/akathisia. Continue with home for medication for urinary retention. Monitor for dry mouth: Artificial saliva spray p.r.n. available. 07/10/- ctp 07/11 did well with trazodone/propranlol combo for night terrors- I have some concerns about trazodone if pt was xs sleeping at college- [facility] for now 07/12 Patient shared that he was never actually suicidal but that prior to this admission he was feeling emotionally overwhelmed, crying all the time, not able to regulate myself.. So he wanted to come into the hospital to make sure it can get worse. Patient notice that he was also sleeping more than usual. Patient can not identify a trigger other than possibly the start of school which was stressful for him last year too (though under different circumstances; patient is now at a new school where he feels much more supported). Patient is overall starting to feel back to his regular self; discussed medication management extensively and right now, patient would like to hold his home medication doses where they are and go up on higher doses if he gets dysregulated again. Patient also wonders whether not he needs to be on Depakote and blurb writer can not find any history of manic behaviors or episodes; however because patient is in the middle of school year, he and blurb writer agree that it is a little risky to make medication changes at this time. -patient asks if he can have a little Ativan, saying that it has helped in the past and he would only use it for panic situations such as this past week -he says OCD and depression seemed to be overall well controlled -patient is eager to get back to school 07/13 pt remains doing better, mood is good; feels ready to return to school He agrees to keep with current regimen. He reports some intermittent muscle tightening and blurb writer discussed possible EPS/Dystonia and pt agrees to try cogentin. pt at baseline; not in imminent risk of harm to self/others and appropriate to return to community for tx Plan Patient on 15 minute checks for safety. Admitted to M5. CV. Work with treatment team to do collateral. SW will do calleral with family- mom and reach out to school staff/OP provider for discharge plan. Patient does not like his current medication prescriber- feeling like he is not helpful. Medication management. Seen by Hospitalist for H+P on 07/09/25: Patient educated on: diagnosis and medication risk/benefits Informed Consent: understands Reason for continued inpatient stay Substantial Risk for: stable for discharge Time Spent With Patient Time: Total time managing care of this patient today ____ minutes.
[2025-07-13 14:41] VITALS: BP 121/65; PULSE 86
[2025-07-13 20:00] VITALS: BP 125/71; PULSE 85; RESP 16; TEMP 36.4; O2SAT 98
[2025-07-13] MEDS: ALFUZOSIN 10 MG 10 EACH PO (20:46)
[2025-07-13 20:47] VITALS: BP 125/71; PULSE 85
[2025-07-13] MEDS: Divalproex Sodium ER 250 MG TAB.ER.24H PO (20:47)
--- NOTE | 2025-07-13 21:57 | PM.PSYDC ---
DS: Providers Provider Date of Service: 07/14/25 Date of admission: 07/08/25 14:07 Date of discharge: 07/14/25 Primary care physician: Unknown Physician Attending physician on admission: Brook Allan Consults: 07/08/25 16:02 Consult to Hospitalist Routine Comment: Consulting Provider[place] [facility] Reason For Exam: New external admit H+P Attending physician on discharge: Steven Vasquez DS: Diagnosis Discharge Diagnosis (1) Autism: Status: Acute (2) OCD (obsessive compulsive disorder): Status: Acute (3) MDD (major depressive disorder): Status: Acute (4) Urinary retention: Status: Acute (5) PTSD (post-traumatic stress disorder): Status: Acute (6) ADHD (attention deficit hyperactivity disorder): Status: Acute DS: Medications Discharge Medications Home Medications: Home Medications ?Medication ?Instructions ?Recorded ?Confirmed alfuzosin 10 mg tablet,extended 10 mg PO BEDTIME 07/08/25 07/08/25 release 24 hr divalproex 250 mg tablet,extended 250 mg PO BEDTIME 07/08/25 07/08/25 release 24 hr divalproex 500 mg tablet,extended 500 mg PO DAILY 07/08/25 07/08/25 release 24 hr gabapentin 300 mg capsule 300 mg PO TID 07/08/25 07/08/25 hydroxyzine HCl 50 mg tablet 50 mg PO TID 07/08/25 07/08/25 lurasidone 60 mg tablet 60 mg PO DAILY 07/08/25 07/08/25 nitrofurantoin 1 cap PO DAILY 07/08/25 07/08/25 monohydrate/macrocrystals 100 mg capsule paroxetine HCl 30 mg tablet 30 mg PO DAILY 07/08/25 07/08/25 Previous Rx's ?Medication ?Instructions ?Recorded benztropine 0.5 mg tablet 0.5 mg PO BID PRN muscle tension 07/13/25 30 days #60 tabs clomipramine 25 mg capsule 75 mg (3 x 25 mg) PO BEDTIME #0 07/13/25 caps clomipramine 25 mg capsule 100 mg (4 x 25 mg) PO DAILY #0 caps 07/13/25 fluticasone propionate 50 1 spray intranasal DAILY 30 days 07/13/25 mcg/actuation nasal #16 grams spray,suspension lorazepam 1 mg tablet 1 mg PO BID PRN emotional 07/13/25 dysregulation 30 days #10 tabs magnesium oxide 400 mg (241.3 mg 400 mg PO BEDTIME 30 days #30 tabs 07/13/25 magnesium) tablet propranolol 10 mg tablet 10 mg PO TID 30 days #90 tabs 07/13/25 trazodone 50 mg tablet 50 mg PO BEDTIME PRN Insomnia 30 07/13/25 days #30 tabs Data Data Completed and Pending Completed studies during hospitalization [Text1]: 07/09/25 07/12/25 08:26 07:30 Sodium 141 Potassium 4.5 Chloride 105 Carbon Dioxide 29 Anion Gap 12 BUN 14 Creatinine 0.93 Estim Creat Clear Calc 164.2 Estimated GFR > 60 Random Glucose 83 Estimat Average Glucose 108 Hemoglobin A1c % 5.4 Calcium 9.4 Total Bilirubin 0.4 AST 25 ALT 40 Alkaline Phosphatase 79 Total Protein 7.6 Albumin 5.0 Triglycerides 117 Cholesterol 204 H LDL Cholesterol, Calc 127 H HDL Cholesterol 54 TSH 1.62 Free T4 1.00 Valproic Acid 47.5 L DS: Summary Hospital Course Hospital Course: HPI: Patient is a 25 single Causation Thai speaking male with hx of Urinary retention, ADHD, OCD, autism, MDD and PTSD who was BIBA to [facility] ED from [facility] after reporting SI. Report increasing in anxiety and depression. patient has hard time articulating his feelings during assessment. Increasing in depression, anxiety, feeling overwhelmed, cryring spell and over sleep for 13-14 hours/day which is not normal his patterns, poor concentration, not able to focus for school, Feeling medication are not working the same way as he was able to complete last semester under same regimens. Formulation/clinical reasoning: Increase stress from school, able to seek out help before sympstoms got worse or having SI, increased in anxiety and depression, poor concentration, poor energy, excessive sleeping 13-14 hours/day, increasing crying spells. Hx Urinary retention, ADHD, OCD, autism, MDD and PTSD. Compliant with meds but feel like meds are not working. Given above information, patient will be benefit in restrictive environment for his own safety, medication management/adjustment, and refer patient back to outpatient psychiatric health services at [facility]. We will assist patient transition into the new providers if needed. Hospital course: 07/09/25: Paxil 30 mg daily in the morning for depression. Latuda 60 mg at bedtime for mood: Educate patient to eat snack before taking medication. Depakote extended release 750 mg daily at bedtime. We will check level on Saturday. Titrate up to therapeutic dose if needed to. Due to the excessive sleepiness, we will continue with current dose. If tolerate well we can increase up to therapeutic dose. Clomapramind total of 175mg daily in divided dose. Propranolol 10 mg t.i.d.: Patient was prescribed by outpatient provider, not started yet before coming in here. We will monitor for EPS/akathisia. Continue with home for medication for urinary retention. Monitor for dry mouth: Artificial saliva spray p.r.n. available. 07/10/- ctp 07/11 did well with trazodone/propranlol combo for night terrors- I have some concerns about trazodone if pt was xs sleeping at college- [facility] for now 07/12 Patient shared that he was never actually suicidal but that prior to this admission he was feeling emotionally overwhelmed, crying all the time, not able to regulate myself.. So he wanted to come into the hospital to make sure it can get worse. Patient notice that he was also sleeping more than usual. Patient can not identify a trigger other than possibly the start of school which was stressful for him last year too (though under different circumstances; patient is now at a new school where he feels much more supported). Patient is overall starting to feel back to his regular self; discussed medication management extensively and right now, patient would like to hold his home medication doses where they are and go up on higher doses if he gets dysregulated again. Patient also wonders whether not he needs to be on Depakote and chief underwriter can not find any history of manic behaviors or episodes; however because patient is in the middle of school year, he and chief underwriter agree that it is a little risky to make medication changes at this time. -patient asks if he can have a little Ativan, saying that it has helped in the past and he would only use it for panic situations such as this past week -he says OCD and depression seemed to be overall well controlled -patient is eager to get back to school 07/13 pt remains doing better, mood is good; feels ready to return to school He agrees to keep with current regimen. He reports some intermittent muscle tightening and chief underwriter discussed possible EPS/Dystonia and pt agrees to try cogentin. pt at baseline; not in imminent risk of harm to self/others and appropriate to return to community for tx Plan Patient on 15 minute checks for safety. Admitted to M5. CV. Work with treatment team to do collateral. SW will do calleral with family- mom and reach out to school staff/OP provider for discharge plan. Patient does not like his current medication prescriber- feeling like he is not helpful. Medication management. Seen by Hospitalist for H+P on 07/09/25: Patient educated on: diagnosis and medication risk/benefits Informed Consent: understands Reason for continued inpatient stay Substantial Risk for: stable for discharge Time Spent With Patient Time: Total time managing care of this patient today ____ minutes. Time Spent with Patient Time attestation: Total time managing care of this patient today ____ minutes. Discharge Plan Discharge Anticipated Discharge Date/Time: 07/14/25 11:54 Patient Disposition: Home, Self-Care Discharge Diagnosis: MDD, recurrent, severe without psychosis, in full remission Referrals: [facility] Meeting [Other] - 07/14/25 2:00 pm Referral Note: A re-entry meeting with on campus counselor. [facility] Academic Support and Advising [Other] - 1 Day Referral Note: Please check your email from [employer] for the link to schedule an appointment with them upon returning to campus. Look for it at the bottom of the body of the email. [facility] APRN [Other] - 07/15/25 Referral Note: Social work was only able to communicate with them via email and they did not get back to social work with a time for your appointment. Please follow up with them to confirm the time. Physician,Unknown J [Primary Care Provider, Medical] - 1 Week Discharge Medications: New benztropine 0.5 mg Tablet 0.5 mg PO BID PRN (Reason: muscle tension) 30 Days Qty: 60 0RF lorazepam 1 mg Tablet 1 mg PO BID PRN (Reason: emotional dysregulation) 30 Days Qty: 10 0RF clomipramine 25 mg Capsule 100 mg PO DAILY Qty: 0 0RF clomipramine 25 mg Capsule 75 mg PO BEDTIME Qty: 0 0RF magnesium oxide 400 mg (241.3 mg magnesium) Tablet 400 mg PO BEDTIME 30 Days Qty: 30 0RF fluticasone propionate 50 mcg/actuation [place],Suspension 1 spray intranasal DAILY 30 Days Qty: 16 0RF trazodone 50 mg Tablet 50 mg PO BEDTIME PRN (Reason: Insomnia) 30 Days Qty: 30 0RF Continued alfuzosin 10 mg tablet extended release 24 hr 10 mg PO BEDTIME divalproex 500 mg tablet extended release 24 hr 500 mg PO DAILY divalproex 250 mg tablet extended release 24 hr 250 mg PO BEDTIME paroxetine HCl 30 mg tablet 30 mg PO DAILY nitrofurantoin monohyd/m-cryst 100 mg capsule 1 cap PO DAILY lurasidone 60 mg tablet 60 mg PO DAILY propranolol 10 mg tablet 10 mg PO TID 30 Days Qty: 90 0RF Changed hydroxyzine HCl 50 mg tablet 50 mg PO TID PRN (Reason: anxiety) 30 Days Qty: 90 0RF gabapentin 300 mg capsule 300 mg PO TID PRN (Reason: Anxiety) 30 Days Qty: 90 0RF Discontinued clomipramine 50 mg capsule 100 mg PO BEDTIME Discharge Orders: Discharge Order (Routine); Ordered 07/14/25 Ordered By: Steven Vasquez Diet: Regular diet Activity on Discharge: As tolerated Stand Alone Forms: Patient Portal Discharge page, Community Support Print Language: Thai Care Plan Goals: Maintain mood and safe behaviors Take medications as prescribed Practice coping skills Continue with outpatient providers and reach out to them as needed Health Concerns: Mood stability and behaviors Plan of Treatment: Follow up with your PCP, psychiatric provider and other outpatient providers regarding above concerns Take medications as prescribed Assessment: Risk assessment at time of discharge:? Patient was interviewed prior to discharge and found to be fully oriented and without any SI or HI. Patient has improved insight and judgment and wants to continue treatment. Patient is not in imminent risk of harm to self or others and has a safety plan that includes presenting to the closest ER or calling 911 if feeling unsafe.? Patient has been observed closely by nursing and unit staff throughout admission; patient has not engaged in any behaviors that suggest dangerousness to self or others and has demonstrated appropriate behaviors and impulse control Discharge Date/Time: 07/14/25 11:50
[2025-07-14 08:16] VITALS: BP 143/85; PULSE 86; TEMP 36.4; O2SAT 98
== END 2025-07-14 11:50 | disposition home or self-care (01) | DRG 885 ==
PROVIDERS: Nurse Practitioner Psychiatric/Mental Health; Admitting Provider Psychiatry & Neurology Psychiatry; Visit Provider Psychiatry & Neurology Psychiatry
DX: F33.2 Major depressive disorder, recurrent severe without psychotic features (principal); R45.851 Suicidal ideations; F84.0 Autistic disorder; R33.9 Retention of urine, unspecified; F43.10 Post-traumatic stress disorder, unspecified; F42.9 Obsessive-compulsive disorder, unspecified; F90.9 Attention-deficit hyperactivity disorder, unspecified type; Z23 Encounter for immunization; Z79.899 Other long term (current) drug therapy
CPT/HCPCS: 36415; 80053; 80061; 80164; 83036; 84439; 84443; 90656

== ENCOUNTER → 2025-07-08 14:07 | Outpatient (BNV) | payer OTHER, SELFPAY | PROVIDERS: Admitting Provider Psychiatry & Neurology Psychiatry; Visit Provider Psychiatry & Neurology Psychiatry | DX: F43.11 Post-traumatic stress disorder, acute (principal); F42.9 Obsessive-compulsive disorder, unspecified; F90.9 Attention-deficit hyperactivity disorder, unspecified type; R33.9 Retention of urine, unspecified; F32.9 Major depressive disorder, single episode, unspecified; F84.0 Autistic disorder | CPT/HCPCS: 99232 ==

== ENCOUNTER → 2025-07-08 14:07 | Outpatient (BNV) | payer OTHER, SELFPAY | PROVIDERS: Admitting Provider Psychiatry & Neurology Psychiatry; Visit Provider Nurse Practitioner Family | DX: R33.9 Retention of urine, unspecified (principal) | CPT/HCPCS: 99221 ==